=== PATIENT | male | born 1960 | race Caucasian/White ===

== ENCOUNTER → 2022-02-27 | Outpatient (CLI) | payer BC, SELFPAY ==
--- NOTE | 2022-02-27 08:02 | CT_ITS ---
STUDY: CT MAXILLOFACIAL SINUSES REASON FOR EXAM: Male, 61 years old. SINUSITIS RADIATION DOSAGE (If Supplied By Facility): CTDIvol = ( 33.06 ) mGy, DLP = ( 763.60 ) mGycm TECHNIQUE: The patient was scanned in a multi detector CT scanner. High resolution axial imaging was performed without the administration of intravenous contrast material. Sagittal and coronal images were reconstructed. Individualized dose optimization techniques were used for this CT. COMPARISON: None. FINDINGS: FRONTAL SINUSES: Normal aeration, without mucosal inflammatory disease. ETHMOIDAL SINUSES: Normal aeration, without mucosal inflammatory disease. MAXILLARY SINUSES: Normal aeration, without mucosal inflammatory disease. SPHENOIDAL SINUSES: Mild degree of mucosal thickening along the posterior aspect of the right sphenoid sinus. There is patency of the bilateral maxillary infundibuli with normal uncinate processes, ethmoid bullae, and hiatus semilunaris. Normal bilateral middle turbinates. Normal bilateral inferior turbinates. Normal midline nasal septum. There is patency of the bilateral nasal airways. The visualized osseous structures are normal. The visualized bilateral orbital contents are normal. CT/Sinus/Facial Bone IMPRESSION: Mild degree of thickening along the posterior aspect of the right sphenoid sinus. Electronically Signed: Sj Whitten MD at 8:33 EDT ,
== END | disposition home or self-care (01) ==
PROVIDERS: PCP Family Medicine; Referring Provider Otolaryngology; Visit Provider Otolaryngology
DX: J32.9 Chronic sinusitis, unspecified (principal)
CPT/HCPCS: 70486

== ENCOUNTER → 2025-02-06 | Outpatient (CLI) | payer MEDICARE, OTHER, SELFPAY ==
--- NOTE | 2025-02-06 15:02 | NEURO ---
NCS and/or EMG Patient Report Ordering Doctor: Isra Wren DATE OF SERVICE: 02/06/25 Clinical Summary: 64 year old male patient presenting with symptoms of pain, numbness, and tingling in the right upper extremity. Nerve Conduction Studies Summary: Nerve conduction studies performed in the right upper extremity were within normal ranges. Needle Examination Summary: Needle examination of select muscles of the right upper extremity demonstrated increased insertional activity and spontaneous activity (positive sharp waves) in the left flexor carpi radialis muscle. There was a higher proportion of motor unit action potentials with reduced recruitment, increased amplitude, increased duration, and polyphasia in the right triceps muscle. Impression: This is an abnormal study. There is electrodiagnostic evidence of a subacute to chronic, right C7 radiculopathy with active denervation. There is no electrodiagnostic evidence of a right median mononeuropathy at the wrist (carpal tunnel syndrome) or ulnar mononeuropathy. Multi Select Codes Neurology Neurology Interp Codes: 46855-23 Musc test done w/n test comp (interp) (1) and 47519-32 Nrv cndj test 7-8 studies (interp)
== END | disposition home or self-care (01) ==
PROVIDERS: PCP Family Medicine; Referring Provider Orthopaedic Surgery; Visit Provider Orthopaedic Surgery
DX: G56.01 Carpal tunnel syndrome, right upper limb (principal); M67.813 Other specified disorders of tendon, right shoulder
CPT/HCPCS: 95886; 95910

== ENCOUNTER 2025-04-04 10:13 | Day surgery (SDC) | payer MEDICARE, OTHER, SELFPAY ==
--- NOTE | 2025-03-21 15:45 | PAT.ANE_ITS ---
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 When Was Last Pacemaker Check QUESTION #4 FULL TEXT: You/Your Family Experience fever (hyperthermia) with Anesthesia Last Oral Intake Last Oral intake: Last Oral Intake NPO since Meds taken in AM with sips of water? Meds patient instructed to take am of surgery PONV PONV - assistant financial accountant: PONV - assistant financial accountant Female No 03/21/25 09:53 HX of Motion Sickness No 03/21/25 09:53 HX of N/V After Surgery No 03/21/25 09:53 Non-Smoker No 03/21/25 09:53 Duration of Surgery greater Yes 03/21/25 09:53 than 60 minutes Number of Risk Factors 1 03/21/25 09:53 PONV Score Low Risk 03/21/25 09:53 Height & Weight Height & Weight: Anesthesia: Height & Weight Height 5 ft 5 in 03/02/25 09:27 Respiratory Assessment Respiratory Assessment - assistant financial accountant: Respiratory Tract Infection Hx - assistant financial accountant Hx Respiratory Tract Infection No 03/21/25 09:53 STOP Sleep Apnea STOP Sleep Apnea - assistant financial accountant: STOP Sleep Apnea - assistant financial accountant Hx Hypertension No 03/21/25 09:53 Hx Sleep Apnea No 03/21/25 09:53 CPAP BIPAP Do you snore loudly (louder No 03/21/25 09:53 than talking or can be heard Do you often feel tired/ No 03/21/25 09:53 fatigued/ sleepy during daytime? Has anyone observed you stop No 03/21/25 09:53 breathing during sleep? STOP Results Negative 03/21/25 09:53 QUESTION #5 FULL TEXT : Do you snore loudly (louder than talking or can be heard through closed doors)? 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 Specify any problems Hx of Preganancy in last 3 N/A 03/21/25 09:53 Months Nurse Filling Out Transfusion [email or web address] 03/21/25 09:53 & Questions: Date: 03/21/25 03/21/25 09:53 Time: 09:56 03/21/25 09:53 Patient unable to answer at this time (ie. confused, unrespo /Reproduction History /Reproductive History - assistant financial accountant: /Reproductive Hx- assistant financial accountant Hx Now No 03/21/25 09:53 Gestational Age (in weeks): EDC: Hx Hx Para Hx Section SAB No 03/21/25 09:53 [facility] Medical History (Updated 03/21/25 @ 09:53 by Kathya Recinos) Wears glasses Wears dentures Marijuana use Abrasion High cholesterol Loss of consciousness Migraine headache Syncope Smoker Shortness of breath on exertion Home Medications ?Medication ?Instructions ?Recorded ?Last Taken ?Type gabapentin 300 mg capsule 300 mg PO TID 03/02/25 Unkno wn History rosuvastatin 10 mg tablet 10 mg PO QHS 03/02/25 Unknow n History Held on 03/21/25. Instructions: pt refused to take this at this time Allergy/AdvReac Type Severity Reaction Status Date / Time codeine AdvReac Intermediate Abd Verified 03/21/25 09:34 cramps/diarrhea morphine AdvReac Upset Verified 03/02/25 09:28 Stomach Family History Mother CAD (coronary artery disease) Brother CAD (coronary artery disease) Surgical History (Updated 03/21/25 @ 09:53 by Kathya Recinos) Hx of colonoscopy History of anal fissures Social History household members: spouse Smoking Status: Current every day smoker tobacco type: cigarettes alcohol intake: current alcohol intake frequency: holidays/special occasions only Audit: Pertinent Findings Pertinent Findings EKG Perinent findings: 05/2022: SR, possible left atrial enlargement, has 4% PVCs, was recommended to decrease caffeine Stress test pertinent findings: 07/2022: Negative stress test Echo (EF%) pertinent findings: 07/2022: LVEF 60-65%, normal study Additional pertinent findings: Unremarkable carotid ultrasound as per familia note Recommendation Anesthesia Recommendation Anesthesia recommendation: OPTIMIZED for anesthesia
--- NOTE | 2025-03-29 09:40 | EKG12_ITS ---
Test Reason : PRE OP Blood Pressure : */* mmHG Vent. Rate : 57 BPM Atrial Rate : 57 BPM P-R Int : 170 ms QRS Dur : 82 ms QT Int : 404 ms P-R-T Axes : 57 7 33 degrees QTcB Int : 393 ms Sinus bradycardia Otherwise normal ECG Confirmed by Michael Rangel ([id number]), sports editor MIGUEL REYES ([id number]) on 03/30/2025 6:41:57 AM Referred By: Dwayne Feliciano Confirmed By: Michael Rangel
[2025-03-29 10:43] LABS: Absolute Lymphocyte Count 2.06 X10^3/uL (0.83-4.51); Absolute Neutrophil Count 5.2 X10^3/uL (2.0-7.7); Basophil# 0.07 X10^3/uL; Basophil% 0.9 % (0-1); Eosinophil# 0.13 X10^3/uL; Eosinophils% 1.6 % (0-5); Hemoglobin 17.7 g/dL (13.0-16.5); Lymphocyte # 2.06 X10^3/ul (0.83-4.51); Lymphocyte % 25.4 % (19-41); Mean Corp Hgb Conc 34.7 g/dL (32-36); Mean Corpuscular Hgb 31.7 pg (27.0-32.0); Mean Corpuscular Volume 91.4 fL (80-94); Mean Platelet Vol. 9.4 fl (6.2-12.0); Monocyte# 0.63 X10^3/uL; Monocyte% 7.8 % (0-10); NRBC Flagged by Analyzer 0 % (0-5); Neutrophil # 5.17 X10^3/uL (2.7-7.7); Neutrophil % 63.7 % (47-70); Platelet Count 158 K/mm3 (150-450); RBC Distribution Width CV 13.2 % (11.6-14.6); RBC Distribution Width SD 44.6 fl (35.1-43.9); Red Blood Count 5.58 M/mm3 (4.6-6.2); White Blood Count 8.1 K/mm3 (4.4-11.0)
[2025-03-29 10:58] LABS: International Normalized Ratio 1.1
[2025-03-29 10:59] LABS: Partial Thromboplast Time 25.9 Seconds (24.1-36.2)
[2025-03-29 11:17] LABS: Hemoglobin A1c 5.9 % (<=5.6)
[2025-03-29 11:28] LABS: Magnesium 2.3 mg/dL (1.5-2.2)
[2025-03-29 11:35] LABS: Hepatitis B Surface Antibody Nonreactive
[2025-03-29 11:49] LABS: Anion Gap 15 (5-15); BUN 8 mg/dL (4-19); BUN/Creat Ratio 8.3 RATIO (10-20); Calcium,Total 9.1 mg/dL (7.6-11.0); Carbon Dioxide 22.2 mmol/L (21.0-32.0); Chloride 101 mmol/L (98-108); Creatinine, Serum 0.93 mg/dL (0.70-1.20); EST Glomerular Filtration Rate 91 (>60); Glucose 99 mg/dL (70-99); HIV Nonreactive (Nonreactive); Hepatitis C Antibody Nonreactive (Nonreactive); Potassium 3.9 mmol/L (3.3-5.1); Sodium Level 138 mmol/L (133-145)
[2025-03-30 05:07] LABS: Hepatitis A AB, Total Negative (Negative)
[2025-04-04] VITALS (10 sets, daily range): BP systolic 156–173; BP diastolic 78–99; PULSE 55–89; RESP 16–18; TEMP 36.2–36.8; O2SAT 96–100; BMI 26.6
[2025-04-04] MEDS: Lactated Ringers 1,000 ML 15 ML IV (10:45)
[2025-04-04] MEDS: Acetaminophen 500 MG Tablet 1000 MG PO (11:14)
[2025-04-04] MEDS: Magnesium 1 GM over 15 mins IV (11:28)
--- NOTE | 2025-04-04 11:36 | HP.PCM_ITS ---
History and Physical MR#: [id number] Acct: [id number] Name: IVETTE GONZÁLES Rep #: [id number] : 1960 Provider: Dr. Dwayne Feliciano MD Age/Sex: 64/M Location: [facility] [email or web address] Status: Signed Intake Vital Signs 03/02/2509:27 Height 5 ft 5 in Weight: 164 lb 4 oz BMI 27.3 Intake Visit Reasons: cervical spine Chief Complaint: pre op Accompanied by: Allergies codeine Adverse Reaction (Intermediate, Verified 03/29/25 08:04) Abd cramps/diarrheamorphine Adverse Reaction (Verified 03/29/25 08:04) Upset Stomach Medications ?Medication ?Instructions ?Recorded ?Confirmed ?Type gabapentin 300 mg capsule 300 mg PO TID 03/02/25 03/29/25 History rosuvastatin 10 mg tablet 10 mg PO QHS 03/02/25 03/29/25 History Held on 03/21/25. Instructions: pt refused to take this at this time Have you fallen in the past year?: No [facility] Medical History (Updated 03/29/25 @ 11:38 by Sunita Kelley) Wears glasses Wears dentures Marijuana use Abrasion High cholesterol Loss of consciousness Migraine headache Syncope Smoker Shortness of breath on exertion Surgical History Hx of colonoscopy History of anal fissures Family History Mother CAD (coronary artery disease)Brother CAD (coronary artery disease) Social History household members: spouse Smoking Status: Current every day smoker tobacco type: cigarettes alcohol intake: current alcohol intake frequency: holidays/special occasions only HPI cervical spine Details: This documentation accurately reflects the service provided and the decisions made by me, Dr. Dwayne Feliciano MD 03/29/25 2231. Part of today?s visit was documented by Teresa FINCH, acting as scribe. IVETTE GONZÁLES is a 64 year old M here today for pre-op cervical spine, dos: 04/04/25. He has had worsening radicular pain and patch of numbness in the left forearm, along with right-sided symptoms that persist. He also has worsening balance and continues to have lower back issues as well. 03/02/25: IVETTE GONZÁLES is a 64 year old M here today for cervical and lumbar spine pain. Patient states the neck and back have been bothering him for quite a while. He states he saw Dr. Isra Wren and he didn't know if it was all coming from the back and he was told he had bursitis in the hip. He decided to try physical therapy and over time it progressively gotten worse to the point where he couldn't walk very far without having to stop. He states he had an MRI of the lumbar spine and found some disc issues. He then had an MRI of the neck and he found some disc issues in the neck as well. Patient is currently in physical therapy right now. He does have some musculature soreness and will get more pain now while he is in PT. He states he does not have any pain in the neck unless he sleeps weird. He states his thumb, index and middle finger in the right hand gets numb and he gets radiating pain up the forearm into the elbow. Occasionally he will get the radiating pain all the way up the arm into the shoulder. He did have an EMG in January and was told the issues were coming from his neck, he does not have carpal tunnel. He states he is unable to sleep comfortably. The lumbar spine pain is over the left lumbar spine down the buttocks and into the posterior hamstring. He denies any pain into the right leg. He states when he walks the left leg feels like it locks up. He states he will get numbness in the anterior aspect of the left thigh. He denies any injections in the cervical or lumbar spine. He was prescribed gabapentin by Dr. Dhaliwal. He is seeing Dr. Whitaker next week for pain management. He does not have trouble writing, holding or dropping objects. He denies any issues with his balance when he walks and no recent falls. He does not have a history of heart problems, lung problems, diabetes or stroke. He does not take any blood thinners. 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 He is a smoker and smokes one pack per day. He is scheduled to be evaluated by Dr. Whitaker in pain management next week. Ortho Exam General General: Yes no acute distress Neurologic: Yes alert Psychologic: Yes reasonable and appropriate Spine SPINE TESTING CERVICAL THORACIC LUMBAR Musculoskeletal Strength 0=absent - 5=normal Details: Exertion neck shows midline right paraspinal tenderness, lower back shows midline left paraspinal tenderness neurologic motion of upper and lower extremities is 5 x 5 power normal shows normal sensations in all dermatomes with Jamar's negative. Romberg's is positive. Tandem gait shows mild imbalance. Reflexes are brisk. There is no clonus. Coding Level of Care Code Off vis,est,level 4 Diagnoses Cervical myelopathy with cervical radiculopathy G95.9; M54.12 Spinal stenosis of lumbar region with neurogenic claudication M48.062 Spondylolisthesis, lumbar region M43.16 Time Spent (min) 35 Assessment and Plan Assessment and Plan (1) Cervical myelopathy with cervical radiculopathy: Status: Acute (2) Spinal stenosis of lumbar region with neurogenic claudication: Status: Acute (3) Spondylolisthesis, lumbar region: Status: Acute Plan Again reviewed pt's cervical and lumbar x-ray in detail with patient and his . X-rays and MRI of the cervical spine show multilevel disc degeneration with C5-6 central disc herniation with cord compression with bilateral foraminal stenosis. C4-5 shows mild disc bulge without any cord compression. No cord signal changes seen. Lower back shows L4-5 subtle spondylolisthesis on flexion view which reduces in extension. MRI shows multilevel disc degeneration with severe central stenosis L4-5 and left-sided lateral recess stenosis from L4-S1. Again explained imaging findings in detail. Explained that cervical spinal cord compression with take priority of the lower back pathology. The cervical MRI shows compression, I discussed this in detail with patient and his . This would require decompression surgically, as cervical myelopathy typically has a progressive natural history. Disc replacement versus fusion were discussed in detail. Patient has a smoking history and is a single level pathology without significant facet arthrosis. I recommend C5-6 disc replacement. We discussed risks, benefits, and alternatives to this. At this time I recommend that we proceed with surgery for the cervical spine. We discussed the restrictions that he would have after surgery. We also discussed that he will likely have trouble swallowing for the first few weeks after surgery. For his lower back, recommend continued nonoperative measures versus surgery. I recommend that he receive injections with pain management for his lumbar spine. He is a smoker and we discussed smoking cessation and how smoking can affect healing after surgery. Discussed in detail the risk benefits and alternatives of the cervical spine surgery. The risks include but are not limited to infection, bleeding, injury to nerves and vessels, hematoma formation, need for further surgery, dysphagia, dysphonia, visceral injury, Ayesha syndrome, recurrent laryngeal nerve injury, persistent pain, persistent numbness and weakness, spinal cord injury, nerve root injury, persistent malposition, adjacent segment degeneration, DVT, pulm embolism, pneumonia, atelectasis, cardiopulmonary event. Patient understands and agrees to proceed with surgery. Consent was signed.
[2025-04-04 11:42] LABS: Bedside Glucose 103 mg/dL (74-106)
--- NOTE | 2025-04-04 12:15 | PCM.PRE.AN2 ---
ASA Classification* ASA Classification ASA Classification: 3 Assessment & Plan Anesthesia* Anesthesia Assessment Anesthesia Assessment: Discussed sedation and/or anesthesia options, risks, benefits, and alternatives with patient/parents/legal guardian/POA. Questions invited. The patient/parents/legal guardian/POA seems to understand and agrees to proceed with anesthesia plan. Reviewed the physical assessment, medical history, allergy history and patient home medications list prior to surgery/procedure/anesthetic and documented any changes. Performed airway and anesthesia risk assessments. Anesthesia Type Anesthesia Type: General History Source History Obtained from:: Patient and Chart Anesthesia Focused Assessment* Temperature: 98.2 F Pulse Rate: 55 Blood Pressure: 164/78 Respiratory Rate: 16 Pulse Ox: 100 Oxygen Delivery Method: Room Air Airway Assessment Mouth opens: >3 cm Mallampati Score: III Teeth Condition: Dentures (Patient has full upper and lower dentures. They are out.) Neck Range of motion (ROM): Limited ROM (Slight decrease secondary to disc compression.) Labs Anesthesia Preop lab: CBC WBC 8.1 K/mm3 (4.4-11.0) 03/29/25 09:55 03/29/25 RBC 5.58 M/mm3 (4.6-6.2) 03/29/25 09:55 03/29/25 Hgb 17.7 g/dL (13.0-16.5) H 03/29/25 09:55 03/29/25 Hct 51.0 % (40-54) 03/29/25 09:55 03/29/25 Plt Count 158 K/mm3 (150-450) 03/29/25 09:55 03/29/25 CHEMISTRY Potassium 3.9 mmol/L (3.3-5.1) 03/29/25 09:55 03/29/25 Sodium 138 mmol/L (133-145) 03/29/25 09:55 03/29/25 Magnesium 2.3 mg/dL (1.5-2.2) H 03/29/25 09:55 03/29/25 BUN 8 mg/dL (4-19) 03/29/25 09:55 03/29/25 Creatinine 0.93 mg/dL (0.70-1.20) 03/29/25 09:55 03/29/25 Glucose 99 mg/dL (70-99) 03/29/25 09:55 03/29/25 POC Glucose 103 mg/dL (74-106) 04/04/25 10:59 04/04/25 COAG PT 14.0 SECONDS (11.7-14.9) 03/29/25 09:55 03/29/25 Pre-Assessment Diagnosis/Proposed Procedure Planned Operative Procedure(s): Cervical Disc Arthroplasty C5-6, ERAS Anesthesia History 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 When Was Last Pacemaker Check QUESTION #4 FULL TEXT: You/Your Family Experience fever (hyperthermia) with Anesthesia Last Oral Intake Last Oral intake: Last Oral Intake NPO since 10:00 04/04/25 11:08 Meds taken in AM with sips of No 04/04/25 11:08 water? Meds patient instructed to take am of surgery Any additional information?: Yes NPO since: 08:15 (Patient took his preop Ensure at 8:15 AM. 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 Female No 03/21/25 09:53 HX of Motion Sickness No 03/21/25 09:53 HX of N/V After Surgery No 03/21/25 09:53 Non-Smoker No 03/21/25 09:53 Duration of Surgery greater Yes 03/21/25 09:53 than 60 minutes Number of Risk Factors 1 03/21/25 09:53 PONV Score Low Risk 03/21/25 09:53 Height & Weight Height & Weight: Anesthesia: Height & Weight Height 5 ft 5 in 04/04/25 11:08 Weight: 72.575 kg 04/04/25 11:08 Body Mass Index (BMI) 26.6 04/04/25 11:08 Respiratory Assessment Respiratory Assessment - shells inspector: Respiratory Tract Infection Hx - shells inspector Hx Respiratory Tract Infection No 03/21/25 09:53 STOP Sleep Apnea STOP Sleep Apnea - shells inspector: STOP Sleep Apnea - shells inspector Hx Hypertension No 03/21/25 09:53 Hx Sleep Apnea No 03/21/25 09:53 CPAP BIPAP Do you snore loudly (louder No 03/21/25 09:53 than talking or can be heard Do you often feel tired/ No 03/21/25 09:53 fatigued/ sleepy during daytime? Has anyone observed you stop No 03/21/25 09:53 breathing during sleep? STOP Results Negative 03/21/25 09:53 QUESTION #5 FULL TEXT : Do you snore loudly (louder than talking or can be heard through closed doors)? 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 Specify any problems Hx of Preganancy in last 3 N/A 03/21/25 09:53 Months Nurse Filling Out Transfusion [email or web address] 03/21/25 09:53 & Questions: Date: 03/21/25 03/21/25 09:53 Time: 09:56 03/21/25 09:53 Patient unable to answer at this time (ie. confused, unrespo /Reproduction History /Reproductive History - shells inspector: /Reproductive Hx- shells inspector Hx Now No 03/21/25 09:53 Gestational Age (in weeks): EDC: Hx Hx Para Hx Section SAB No 03/21/25 09:53 Active Medications Active Medications: Current Medications Generic Name Dose Route Start Last Admin Trade Name Freq PRN Reason Stop Dose Admin Acetaminophen 1,000 mg 04/04/25 12:15 04/04/25 11:14 Acetaminophen 500 Mg Tablet PO 04/04/25 12:16 1,000 mg PREOP ONE Administration Dexamethasone Sodium Phosphate 8 mg 04/04/25 12:15 Dexamethasone 10 Mg/Ml Vial IV 04/04/25 12:16 INTRAOP ONE Dexamethasone Sodium Phosphate 4 mg 04/04/25 12:15 Dexamethasone 4 Mg/Ml Vial IV 04/04/25 12:16 POSTOP ONE Cefazolin Sodium 2 gm/ Sodium 110 mls @ 150 mls/hr 04/04/25 12:15 Chloride IV 04/04/25 12:58 INTRAOP ONE Tranexamic Acid 1,000 mg/ 110 mls @ 440 mls/hr 04/04/25 12:15 Sodium Chloride IV 04/04/25 12:29 INTRAOP ONE Tranexamic Acid 1,000 mg/ 110 mls @ 440 mls/hr 04/04/25 12:15 Sodium Chloride IV 04/04/25 12:29 INTRAOP ONE Magnesium Sulfate 1 gm/ 102 mls @ 408 mls/hr 04/04/25 12:15 04/04/25 11:28 Dextrose IV 04/04/25 12:29 408 mls/hr INTRAOP ONE Administration Lactated Ringer's 1,000 mls @ 15 mls/hr 04/04/25 10:45 04/04/25 10:45 IV 15 mls/hr .Q48H TERRY Administration Insulin Human Lispro 1 - 6 unit 04/04/25 12:15 Insulin Lispro 100 Unit/Ml Insuln.Pen SC 04/04/25 18:00 Q4H PRN PRN BG>/= 180, SEE PROTOCOL Protocol PFSH Medical History Wears glasses Wears dentures Marijuana use Abrasion High cholesterol Loss of consciousness Migraine headache Syncope Smoker Shortness of breath on exertion Home Medications ?Medication ?Instructions ?Recorded ?Last Taken ?Type gabapentin 300 mg capsule 300 mg PO TID 03/02/25 04/04/25 07:00 History rosuvastatin 10 mg tablet 10 mg PO QHS 03/02/25 Unknown History Held on 03/21/25. Instructions: pt refused to take this at this time Allergy/AdvReac Type Severity Reaction Status Date / Time codeine AdvReac Intermediate Abd Verified 04/04/25 11:01 cramps/diarrhea morphine AdvReac Upset Verified 04/04/25 11:01 Stomach Family History Mother CAD (coronary artery disease) Brother CAD (coronary artery disease) Surgical History Hx of colonoscopy History of anal fissures Social History household members: spouse Smoking Status: Current every day smoker tobacco type: cigarettes alcohol intake: current alcohol intake frequency: holidays/special occasions only Review of Systems (Anesthesia) ROS Narrative System reviewed and no additional complaints, except as documented.
[2025-04-04] MEDS: Cefazolin 2 GM in 0.9% Normal Saline (100mL Bag) 100 ML IV (12:34)
[2025-04-04] MEDS: TRANEXAMIC ACID 1,000 MG in 0.9% Normal Saline (100mL Bag) 100 ML 440 MG IV ×2 (12:46→13:58)
[2025-04-04] MEDS: dexAMETHasone 10 MG/ML Vial 8 MG IV (13:04)
--- NOTE | 2025-04-04 13:15 | RAD_ITS ---
PROCEDURE: Intraoperative fluoroscopic services provided. 04/04/2025 REASON FOR EXAM: CERVICAL DISC ARTHROPLASTY C5-6 TECHNIQUE: Intraoperative fluoroscopic services provided for C5-C6 arthroplasty. COMPARISON: None FINDINGS: 14.9 seconds of fluoroscopy. 2.26 mGy.. 3 images were submitted. RAD/Cerv Spine 2 or 3 Views IMPRESSION: Intraoperative fluoroscopic services provided as described. Reading Location: [facility]
[2025-04-04] MEDS: HYDROcodone Bitartrate/Apap 5/325 Tablet PO (13:45)
--- NOTE | 2025-04-04 14:31 | PCM.OPRPT ---
Procedures Musculoskeletal [id number]: Other Procedure See Report Operative Report (Standard) Operative Information Date of Procedure: 04/04/25 Pre-Operative Diagnosis: C5-6 disc herniation, cord compression, myelopathy with radiculopathy Post-Operative Diagnosis: Same Surgery/Procedure Performed: C5-6 disc replacement airport duty manager: Yes Lab Tester: Shannon Hernandez Tasks completed by hospital nursing assistant: Closing, Removing tissue, Hemostasis: Electrocautery and Retracting Type of Anesthesia: General RN Documented Start/Stop Times: Operation Date: 04/04/25 12:15 Case Time Into Pre-Op 04/04/25 10:41 Out of Pre-Op 04/04/25 12:21 Anesthesia Start 04/04/25 12:30 Into Room 04/04/25 12:30 Procedure Start 04/04/25 13:02 Procedure End 04/04/25 14:17 Anesthesia End 04/04/25 14:24 Out of Room 04/04/25 14:24 Into Recovery 04/04/25 14:30 Procedure Start Time: 13:02 Procedure Stop Time: 14:17 Select all DRAINS/GRAFTS/IMPLANTS that apply: Prosthetic device Prosthetic device details: ZimVie Mobi-C cervical disc replacement prosthesis Estimated Blood Loss: 20 cc Specimen collected: No Description of surgery: Preoperative diagnosis: 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 Anesthesia: Gen. endotracheal Estimated blood loss: 20 mL Complications: None Instrumentation used: Jaimee [employer]omet Mobi-C cervical disc replacement implants Indications: The patient is a pleasant 64-year-old gentleman who presented with symptoms of neck pain, progressive right upper extremity radiation, worsening difficulty with dexterity and balance. MRI revealed C5-6 central disc herniation with cord compression without cord signal changes. In order to halt the progression of myelopathy, patient requested surgical intervention. All risks and benefits of the procedure were explained to the patient. The risks include but are not limited to infection, bleeding, injury to nerves and vessels, vertebral artery injury, spinal cord injury, paralysis, vocal cord paralysis, injury to esophagus, need for further procedures, adjacent segment degeneration, heterotopic ossification, implant loosening, implant failure, DVT, pulmonary embolism, cardiopulmonary event, etc. Procedure: The patient was identified in the preoperative suite using unique patient identifiers. Skin was marked consent was taken and all questions were answered. The patient was then brought back to the operative room and a timeout was performed. General endotracheal anesthesia was given. Intraoperative neuro monitoring leads were applied. The patient was carefully positioned supine on a regular OR table. A lateral x-ray with a C-arm was done to identify the level and to define the incision. The anterior neck was then prepped and draped in the usual fashion. A final timeout was then performed. A transverse skin incision was then taken to the left of midline 2 fingerbreadths above the clavicle. Subcutaneous tissue was then divided with Bovie. Platysma was identified and cut transversely with scissors. The fascial interval between the sternocleidomastoid and the larynx was developed. Omohyoid was identified and mobilized medially and inferiorly. Carotid sheath was laterally while the esophagus with the larynx was retracted medially to reach the prevertebral fascia. All prevertebral layers of fascia were bluntly dissected and a Wesson pin was placed into one of the bodies. A lateral C-arm image was used to confirm the correct level. Once this was done longus coli muscle was elevated on both sides at and above and below C5-6 disc. Shadow line retractors were then placed with great care to protect the esophagus. A long handle knife was then used to perform annulotomy at C5-6. Disc fragments were removed with the pituitary. Wesson pins were placed in C5 and C6 for disc distraction. AP view confirmed midline placement of Wesson pins. Curettes were utilized to remove cartilage from the endplates. Discectomy was performed laterally up to the uncovertebral joints. Adequate decompression was performed, PLL was thinned out and partially resected. Foramina were decompressed without taking down the uncovertebral processes. Once the disc space was prepared, trials of various sizes were utilized. Thorough irrigation was given. Mobi-C anterior cervical disc replacement implant of size 17 x 17 mm with 5 mm height was then placed under fluoroscopic guidance. Adequate positioning was noticed on AP and lateral views. Thorough irrigation was again given. Hemostasis was achieved with FloSeal and bipolar cautery. Closure was done with 3-0 Vicryl for the platysma and subcutaneous tissue layers and 4-0 Monocryl for the skin. Steri-Strips were applied and dressing was done with 4 x 4 gauze and Tegaderm. A cervical collar was then applied. The patient was then woken up from anesthesia extubated and taken to PACU in stable condition. Intraoperative neuro monitoring was performed throughout this procedure. Motor evoked potentials were run periodically. All potentials remained at baseline throughout the procedure. I was present for the entire surgery and performed the surgery myself. Machine Leather Trimmer Shannon Hernandez PA-C. My physician pet care assistant was a vital part of this case. They were important in appropriate retraction during the case, and protection of soft tissues during the procedure. Their intimate knowledge of the case and my steps aided in safe and expedient completion of the procedure as well as appropriate position of the patient during the surgery. They were also vital in assisting with closure under my direct supervision. Surgical Findings: See operative note Complications Complications: No
--- NOTE | 2025-04-04 14:41 | PCM.POST.ANE ---
Anesthesia: Postop Eval I Current Vital Signs Temperature: 97.2 F Pulse Rate: 85 Blood Pressure: 172/86 Respiratory Rate: 18 Pulse Ox: 97 Oxygen Delivery Method: Nasal Cannula Oxygen Flow Rate (L/min): 4 Assessment Airway patent: Yes Spontaneous unlabored respirations: Yes Mental status: Awake and Calm nausea: No Vomiting: No Anesthesia Complication: No Fluid Hydration Crystalloid volume administer (ml): 1,000 Total IV fluid infused: 1,000 Progress Note Post-operative progress note: See PACU notes for details VSS Anesthesia document: Postop Eval 1 completed: Yes
--- NOTE | 2025-04-04 16:34 | POSTOPAN2_ITS ---
Anesthesia Postop Eval I Sum Postop Eval Completion status Anesthesia document: Postop Eval 1 completed: Yes Anesthesia Postop Eval I Summary Anesthesia Postop Eval I Summary: Anesthesia Postop Eval I: Assessment Summary Airway patent Yes 04/04/25 14:42 RESEARCH KENNEL SUPERVISOR.DBAK Spontaneous unlabored Yes 04/04/25 14:42 RESEARCH KENNEL SUPERVISOR.DBAK respirations Mental status Awake,Calm 04/04/25 14:42 RESEARCH KENNEL SUPERVISOR.DBAK nausea No 04/04/25 14:42 RESEARCH KENNEL SUPERVISOR.DBAK Vomiting No 04/04/25 14:42 RESEARCH KENNEL SUPERVISOR.DBAK Anesthesia Postop Eval I: Fluid Summary Crystalloid volume administer 1,000 04/04/25 14:42 RESEARCH KENNEL SUPERVISOR.DBAK (ml) Colloids volume administered ( ml) Blood Product volume administered (ml) Total IV fluid infused 1,000 04/04/25 14:42 RESEARCH KENNEL SUPERVISOR.DBAK Anesthesia Postop Eval I: Summary Notes Anesthesia Complication No 04/04/25 14:42 RESEARCH KENNEL SUPERVISOR.DBAK Anesthesia Complication Comment: Post-operative progress note See PACU notes for 04/04/25 14:42 RESEARCH KENNEL SUPERVISOR.DBAK details VSS Anesthesia: Postop Eval II Evaluation Mental status: Awake Pain Level: 3 nausea: No Vomiting: No
--- NOTE | 2025-04-04 16:34 | PCM.POSTANE2 ---
Anesthesia Postop Eval I Sum Postop Eval Completion status Anesthesia document: Postop Eval 1 completed: Yes Anesthesia Postop Eval I Summary Anesthesia Postop Eval I Summary: Anesthesia Postop Eval I: Assessment Summary Airway patent Yes 04/04/25 14:42 CALCULATION CLERK.DBAK Spontaneous unlabored Yes 04/04/25 14:42 CALCULATION CLERK.DBAK respirations Mental status Awake,Calm 04/04/25 14:42 CALCULATION CLERK.DBAK nausea No 04/04/25 14:42 CALCULATION CLERK.DBAK Vomiting No 04/04/25 14:42 CALCULATION CLERK.DBAK Anesthesia Postop Eval I: Fluid Summary Crystalloid volume administer 1,000 04/04/25 14:42 CALCULATION CLERK.DBAK (ml) Colloids volume administered ( ml) Blood Product volume administered (ml) Total IV fluid infused 1,000 04/04/25 14:42 CALCULATION CLERK.DBAK Anesthesia Postop Eval I: Summary Notes Anesthesia Complication No 04/04/25 14:42 CALCULATION CLERK.DBAK Anesthesia Complication Comment: Post-operative progress note See PACU notes for 04/04/25 14:42 CALCULATION CLERK.DBAK details VSS Anesthesia: Postop Eval II Evaluation Mental status: Awake Pain Level: 3 nausea: No Vomiting: No
--- OUTSIDE RECORDS SUMMARY | 2025-04-04 20:36 | XMS RPT_ITS | CCD ---
Author Organization [facility] Care Team Providers Care Gang Saw Operator Name Role Phone Gareth Amador Unavailable Unavailable PROVIDER, UNKNOWN Unavailable Unavailable Matheus Carmona Unavailable Unavailab le Keiko Amadorick Unavailable Unavailable PROVIDER, UNKNOWN Unavailable Unavailable Matheus Carmona Unavailable Unavailab le Marjorie, Gareth Unavailable Unavailable Matheus Carmona Unavailable Unavailab le PROVIDER, UNKNOWN Unavailable Unavailable Keiko Amadorick Unavailable Unavailable Matheus Carmona Unavailable Unavailab le PROVIDER, UNKNOWN Unavailable Unavailable FRIDA DO, DR MACHADO A Primary Care Physician FRIDA DO, DR MACHADO A Primary Care Physician FRIDA DO, DR MACHADO A Primary Care Physician [facility] [employer] 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FFIE Attending Unava ilable FRIDA DO, DR MACHADO A Primary Care Unavailabl e [facility] EFFIE Attending Unava ilable FRIDA DO, DR MACHADO A Primary Care UnavailDARION Saldivar MD Attending Unavailable FRIDA DO, DR MACHADO A Primary Care Unavailabl e [facility] EFFIE Attending Unava ilable FRIDA DO, DR MACHADO A Primary Care Unavailabl e FRIDA DO, DR JEANNETTE Salgado Attending Unavailabl e FRIDA DO, DR MACHADO A Primary Care [facility]availabl e 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 Attending Unava ilable FRIDA DO, DR JEANNETTE Salgado Primary Care Unavailabl e [facility] Attending Unava ilable FRIDA DO, DR MACHADO A Primary Care UnavailDARION Saldivar MD Attending Unavailable FRIDA DO, DR JEANNETTE Salgado Primary Care Unavailabl e FRIDA DO, DR JEANNETTE Salgado Primary Care Unavailabl e [facility], EFFIE Attending Unava ilable FRIDA DO, DR JEANNETTE Salgado Primary Care Unavailabl e DARION LEONE MD Attending Unavailable FRIDA DO, DR JEANNETTE Salgado Primary Care UnavailISRA Engladn MD Attending Unavailable FRIDA DO, DR JEANNETTE Salgado Primary Care Unavailabl e [facility], EFFIE Attending Unava ilable Frida DO, Dr. Machado Primary Care Provider Holger BROCK, Dr. Dhaliwal Attending Provider Holger BROCK, Dr. Dhaliwal Referring Provider Holger BROCK, Dr. Dhaliwal Other Provider [phone] Berny BROCK, Dr. Avelar Attending Provider Frida DO, Dr. Machado Referring Provider Braden BROKC, Dr. Rice Attending Provider Uche BROCK, Dr. Phillips Attending Provider FRIDA DO, DR JEANNETTE Salgado Primary Care Unavailabl e FRIDA DO, DR JEANNETTE Salgado Attending Unavailabl e FRIDA DO, DR JEANNETTE Salgado Primary Care Unavailabl e ISRA CARRERO MD Attending Unavailable FRIDA DO, DR JEANNETTE Salgado Primary Care Unavailabl e RACHEL KANG Attending Unavailable FRIDA DO, DR JEANNETTE Salgado Attending Unavailabl e FRIDA DO, DR JEANNETTE Salgado Primary Care Unavailabl e Alan Ivey Attending Unavailable Frida, Jeannette Primary Care Unavailable Dwayne Feliciano Attending Unavailable Frida, Jeannette Referring Unavailable Frida, Jeannette Primary Care Unavailable Michael Rangel Attending Unavailable Dwayne Feliciano Referring Unavailable Frida, Jeannette Primary Care Unavailable Isra Carrero Referring Unavailable Valentino Arrieta Attending Unavailable Frida, Jeannette Primary Care Unavailable Isra Carrero Consulting Unavailable Dwayne Feliciano Attending Unavailable Dwayne Feliciano Referring Unavailable Frida, Jeannette Primary Care Unavailable Isra Carrero Referring Unavailable Frida, Jeannette Primary Care Unavailable Isra Carrero Attending Unavailable Dwayne Feliciano Attending Unavailable Frida, Jeannette Primary Care Unavailable Frida, Jeannette Referring Unavailable Dr. Michael Rangel MD Attending Provider Braden BROCK, Dr. Rice Referring Provider Braden BROCK, Dr. Rice Other Provider Allergies Allergy Classification Reported Allergen(s) Allergy Type Date of Onset Reaction(s) Facility (16 sources) Codeine; Translations: [codeine] Drug Allergy 5 Abd cramps/diarrhea [facility] Comment on above: abdul my stomach up (18 sources) Morphine; Translations: [morphine] Drug Allergy 5 Vomiting (disorder) [facility] Comment on above: Upset stomach and se cheng dizziness (1 source) Codeine Drug Allergy 5 [facility] Repository (1 source) Morphine Drug Allergy 5 [facility] Rep[facility] Medications Current Medications Medication Drug Class(es) Dates Sig (Normalized) Sig (Original) acetaminophen 325 mg / HYDROcodone bitartrate 5 mg oral tablet (1 source) Opioid Agonist Start: 04-04-2025 take 1 tablet by mouth every six hours as needed for pain Hydrocodone-Acetam inophen 5-325 mg tablet Active 1 {tbl} PO EVERY 6 HOURS as needed for pain 06 03April 04, 2025 cephalexin 500 mg oral capsule (1 source) Cephalosporin Antibacterial Start: 04-04-2025 take 1 tablet by mouth twice daily Cephalexin 500 mg capsule Active 500 mg PO TWICE A DAY April 04, 2025 12:00am take 1 tablet twice a day for 3 days dexamethasone 4 mg oral tablet (1 source) Corticosteroid Start: 04-04-2025 Dexamethasone 4 mg tablet Active 4 mg PO TWICE A DAY 5 April 04, 2025 12:00am take 2 tablets on day 1, 2 tablets on day 2, and 1 tablet on day 3 doxycycline hyclate 100 mg oral capsule (2 sources) Tetracycline-class Drug Start: 07-19-2023 End: 07-26-2023 doxycycline hyclate 100 mg oral capsule Dose : 100 mg = 1 cap(s), Oral, BID, X 7 day(s), # 14 cap(s), 0 Refill(s), 07/26/23 9:59:00 AM EDT, Pharmacy: [facility]/pharmacy #[id number], 165, cm, 07/19/23 9:28:00 EDT, Height, 74.2, kg, 07/19/23 9:28:00 EDT, Dosing Weight Start Date: 07/19/23 Stop Date: 07/26/23 Status: Ordered gabapentin 300 mg oral capsule (4 sources) Anti-epileptic Agent Start: 03-02-2025 take 1 capsule by mouth three times daily Gabapentin 300 mg capsule Active 300 mg PO THREE TIMES A DAY March 02, 2025 12:00am meloxicam 15 mg oral tablet (1 source) Nonsteroidal Anti-inflammatory Drug Start: 04-04-2025 take 1 tablet by mouth once daily Meloxicam 15 mg tablet Active 15 mg PO DAILY April 04, 2025 12:00am take once a day methocarbamol 500 mg oral tablet (1 source) Muscle Relaxant Start: 04-04-2025 take 500-750 mg by mouth three times daily as needed for pain Methocarbamol 500 mg tablet Active 500 - 750 mg PO THREE TIMES A DAY as needed for pain/spasms April 04, 2025 2:31pm rosuvastatin calcium 10 mg oral tablet (3 sources) HMG-CoA Reductase Inhibitor Start: 03-02-2025 take 1 tablet by mouth at bedtime Rosuvastatin 10 mg tablet Active 10 mg PO AT BEDTIME March 02, 2025 12:00am sennosides, fci 8.6 mg oral capsule (1 source) Start: 04-04-2025 take 1 capsule by mouth twice daily as needed for constipation Sennosides (Senna) 8.6 mg capsule Active 8.6 mg PO TWICE A DAY as needed for constipation April 04, 2025 12:00am tamsulosin hydrochloride 0.4 mg oral capsule (5 sources) alpha-Adrenergic Ale Start: 07-19-2023 End: 04-26-2025 Flomax 0.4 mg oral capsule Dose : 0.8 mg = 2 cap(s), Oral, qDay, # 180 cap(s), 3 Refill(s), Pharmacy: [facility]/pharmacy #[id number], 167.6, cm, 03/20/24 8:02:00 EDT, Height, kg, 03/20/24 8:02:00 EDT, Dosing Weight Start Date: 05/01/24 Stop Date: 04/26/25 Status: Ordered trospium chloride 20 mg oral tablet (1 source) Cholinergic Muscarinic Antagonist Start: 01-21-2024 End: 03-21-2024 trospium 20 mg oral tablet Dose : 20 mg = 1 tab(s), Oral, BID, # 60 tab(s), 1 Refill(s) Start Date: 01/21/24 Stop Date: 03/21/24 Status: Ordered Completed/Discontinued Medications Medication Drug Class(es) Dates Sig (Normalized) Sig (Original) sildenafil 100 mg oral tablet (16 sources) Phosphodiesterase 5 Inhibitor Start: 01-21-2024 End: 05-20-2024 sildenafil 100 mg oral tablet Dose : 100 mg = 1 tab(s), Oral, qDay, # 30 tab(s), 3 Refill(s) Start Date: 01/21/24 Stop Date: 05/20/24 Status: Ordered Quantity: 30.0 Unit: tab(s) Repeat number: 4 Start: 11-11-2023 sildenafil 20 mg oral tablet See Instructions, 2-5 tablets 30-60 minutes prior to sexual activity, # 30 tab(s), 11 Refill(s), Pharmacy: [facility]/pharmacy #[id number], 164, cm, 11/11/23 8:31:00 EST, Height, kg, 11/11/23 8:31:00 EST, Dosing Weight Start Date: 11/11/23 Status: Ordered Start: 04-23-2023 sildenafil 20 mg oral tablet See Instructions, 2-5 tablets 30-60 minutes prior to sexual activity, # 20 tab(s), 5 Refill(s), [facility]acy: [id number], 165.1, cm, 03/29/23 10:50:00 EDT, Height, kg, 03/29/23 10:50:00 EDT, Dosing Weight Start Date: 04/23/23 Status: Ordered Start: 10-30-2022 sildenafil 20 mg oral tablet See Instructions, 2-5 tablets 30-60 minutes prior to sexual activity, # 20 tab(s), 5 Refill(s), Pharmacy: [email or web address] #[id number], 165.1, cm, 09/25/22 8:48:00 EST, Height, kg, 09/25/22 8:48:00 EST, Dosing Weight Start Date: 10/30/22 Status: Ordered Start: 05-06-2022 sildenafil 20 mg oral tablet See Instructions, 2-5 tablets 30-60 minutes prior to sexual activity, # 20 tab(s), 5 Refill(s), [facility]: [id number], 164, cm, 05/06/22 9:55:00 EDT, Height, kg, 05/06/22 9:55:00 EDT, Dosing Weight Start Date: 05/06/22 Status: Ordered Problems Active Problems Problem Classification Problem Date Documented Da te Episodic/Chronic Allergic reactions (2 sources) Allergy status to narcotic agent status; Translations: [Allergy status to narcotic agent status] Onset: 01-20-2018 Episodic Anal and rectal conditions (2 sources) Anal fistula; Translations: [Anal fistula] Onset: 01-20-2018 Episodic Cardiac dysrhythmias (9 sources) Ventricular premature complex 09-25-2022 Chronic Conditions associated with dizziness or vertigo (11 sources) Dizziness 07-01-2022 Episodic Deficiency and other anemia (1 source) Hemoglobinopathy; 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 Genitourinary symptoms and ill-defined conditions (14 sources) Blood in urine; Translations: [Hematuria, unspecified] Onset: 07-19-2023 Episodic Hyperplasia of prostate (11 sources) Benign prostatic hypertrophy with outflow obstruction; Translations: [Benign prostatic hyperplasia with lower urinary tract symptoms] Onset: 07-19-2023 03-29-2023 Chronic Medical examination/evaluation (2 sources) Encounter for other preprocedural examination; Translations: [Encounter for other preprocedural examination] Onset: 01-13-2018 Episodic Other acquired deformities (5 sources) Lumbar spondylolisthesis; Translations: [Spondylolisthesis, lumbar region] 03-02-2025 Episodic Other and unspecified benign neoplasm (2 sources) Personal history of colonic polyps; Translations: [Personal history of colonic polyps] Onset: 01-20-2018 Episodic Other diseases of bladder and urethra (3 sources) Urethral stricture 05-16-2024 Episodic Other gastrointestinal disorders (2 sources) Other specified functional intestinal disorders; Translations: [Other specified functional intestinal disorders] Onset: 01-20-2018 Episodic Other hematologic conditions (11 sources) Increased hemoglobin 07-01-2022 Episodic Other male genital disorders (7 sources) Impotence 07-19-2023 Chronic Other male genital disorders (4 sources) Male erectile dysfunction, unspecified; Translations: [Male erectile dysfunction, unspecified] Onset: 07-19-2023 Chronic Other nervous system disorders (5 sources) Cervical myelopathy; Translations: [Disease of spinal cord, unspecified] 03-02-2025 Chronic Other nervous system disorders (2 sources) Carpal tunnel syndrome, right upper limb; Translations: [Carpal tunnel syndrome, right upper limb] Onset: 03-13-2025 Chronic Other skin disorders (2 sources) Other specified disorders of the skin and subcutaneous tissue; Translations: [Oth disrd of the skin and subcutaneous tissue] Onset: 01-13-2018 Episodic Residual codes; unclassified (11 sources) FH: premature coronary heart disease 07-01-2022 Episodic Residual codes; unclassified (1 source) History of surgical procedure on cervical spine; Translations: [Other specified postprocedural states] 04-04-2025 Episodic Screening or history of mental health and substance abuse (2 sources) Personal history of nicotine dependence; Translations: [Personal history of nicotine dependence] Onset: 01-20-2018 Episodic Spondylosis; intervertebral disc disorders; other back problems (7 sources) Spinal stenosis of lumbar region; Translations: [Spinal stenosis, lumbar region with neurogenic claudication] Onset: 03-02-2025 03-02-2025 Episodic Syncope (11 sources) Near syncope 07-01-2022 Episodic Unclassified (2 sources) Chills (without fever); Translations: [Chills (without fever)] Onset: 01-20-2018 Episodic Unclassified (1 source) Low back pain, unspecified; Translations: [Low back pain, unspecified] Onset: 03-02-2025 Past or Other Problems Problem Classification Problem Date Documented Da te Episodic/Chronic Other diseases of bladder and urethra (2 sources) Unspecified urethral stricture, male, unspecified site; Translations: [Unspecified urethral stricture, male, unspecified site] Onset: 08-25-2024 Episodic Urinary tract infections (2 sources) Other urethritis; Translations: [Other urethritis] Onset: 07-19-2023 Episodic Results Test Name Value Interpretation Reference Range Facility Glucose measurement at [facility] deOrdered By: Dwayne Feliciano on 04-04-2025 Glucose [Mass/Vol] 103 mg/dL 74-106 [facility] Comment on above: MANAGEMENT OF PATIEN T CARE PER NURSING PROTOCOL Electrocardiogram reportOrde red By: Michael Rangel on 03-30-2025 EKG study [facility] [address] [place] [address] 12 Lead EKG 03/29/25 0944 MR#: [id number] Acct: [id number] Name: IVETTE GONZÁLES Rep #:[id number] : 1960 64 From: Michael rodriguez MD Attending Dr: Dr. Dwayne Feliciano MD Status: PRE SDC Ordering Dr: Dwayne Feliciano MD Date: [place] [facility] [place] Sex: M C Admitted: Test Reason : PRE OP Blood Pressure : */* mmHG Vent. Rate : 57 BPM Atrial Rate : 57 BPM P-R Int : 170 ms QRS Dur : 82 ms QT Int : 404 ms P-R-T Axes : 57 7 33 degrees QTcB Int : 393 ms Sinus bradycardia Otherwise normal ECG Confirmed by Michael Rangel ([id number]), purchasing expeditor MIGUEL REYES ([id number]) on 56:41:57 AM Referred By: Dwayne Feliciano Confirmed By: Michael Rangel 03/30/25 0642 Date _ Michael Rangel MD CC: Dr. Jeannette Galicia DO; Dr. Dwayne Feliciano MD ~ Signed [facility] Work Phone: Hepatitis A AB, Totalon 03-18 HEPATITIS A,TOT Negative Normal Negative [facility] Comment on above: Result Comment: Comm ent: The HAV total antibody assay detects both IgG and IgM but does not differentiate between them. A negative result suggests susceptibility to infection. A positive result could be due to vaccination, previously resolved infection or active infection. Testing for HAV IgM should be performed if active HAV infection is suspected. [facility] offers profiles that will automatically reflex positive HAV total antibody results to IgM (e.g., panel #[id number] HAV Antibody w/ Rfx). Performed at: [address] [id number] Communication Instructor: oHmero Moore PhD, Phone: [phone] Performed By: #### L 3890.6006, L500.2500, L501.9985, M100.651, L3890.6202, L3890.6301, L3100.0300, BTSPAT, L100.0100 ####[facility] [id number] [place], [address] MRSA/SAID NASAL SCREENon MRSA+SAID SCRN Reason for Exam: Surgery MRSA MRSA Negative S. AUREUS S. aureus Negative Normal [facility] Comment on above: Performed By: #### L 3890.6006, L500.2500, L501.9985, M100.651, L3890.6202, L3890.6301, L3100.0300, BTSPAT, L100.0100 ####[facility] [id number] [facility] [place], [place], [address] 12 Lead EKGon 03-29-2025 12 Lead EKG [facility] [address] [place] [address] 12 Lead EKG 03/29/25 0944 MR#: [id number] Acct: [id number] Name: IVETTE GONZÁLES Rep #: [id number] : 1960 64 From: Michael Rangel MD Attending Dr: Dr. Dwayne Feliciano MD Status: PRE [facility] [place] Ordering Dr: Dwayne Feliciano MD Date: 03/29/25 Location: [facility] [place] Sex: M C Admitted: Test Reason : PRE OP Blood Pressure : */* mmHG Vent. Rate : 57 BPM Atrial Rate : 57 BPM P-R Int : 170 ms QRS Dur : 82 ms QT Int : 404 ms P-R-T Axes : 57 7 33 degrees QTcB Int : 393 ms Sinus bradycardia Otherwise normal ECG Confirmed by Michael Rangel ([id number]), purchasing expeditor MIGUEL REYES ([id number]) on 03/30/2025 6:41:57 AM Referred By: Dwayne Feliciano Confirmed By: Michael Rangel 03/30/25 0642 Date Michael Rangel MD CC: Dr. Jeannette Galicia, DO; Dr. Dwayne Feliciano MD Signed Normal [facility] Absolute lymphocyte countOrd ered By: Dwayne Feliciano on 03-29-2025 Lymphocytes Auto (Unsp spec) [#/Vol] 2.06 10*3/uL 0.83-4.51 [facility] Absolute neutrophil countOrd ered By: Dwayne Feliciano on 03-29-2025 Neutrophils (Bld) [#/Vol] 5.2 10*3/uL 2.0-7.7 [facility] Activated partial thrombopla stin time (aPTT) in platelet poor plasma by coagulation aOrdered By: Reji Hernandez on 03-29-2025 aPTT Coag (PPP) [Time] 25.9 s 24.1-36.2 [facility] Anion gap in Serum or Plasma Ordered By: Dwayne Feliciano on 03-29-2025 Anion gap [Moles/Vol] 15 mmol/L 5-15 [facility] Automated lymphocyte count a s percentage of total leukocytesOrdered By: Dwayne Feliciano on 03-29-2025 Lymphocytes/100 WBC Auto (Unsp spec) 25.4 % 19-41 [facility] BUN/creatinine ratioOrdered By: Dwayne Feliciano on 03-29-2025 Urea nitrogen/Creatinine [Mass ratio] 8.3 mg/mg Low 10- [facility] Basic Metabolic Profile (BMP )on 03-29-2025 BUN/CRE 8.3 RATIO Low 10- [facility] Comment on above: Performed By: #### L 3890.6006, L500.2500, L501.9985, M100.651, L3890.6202, L3890.6301, L3100.0300, BTSPAT, L100.0100 #### [facility] [address] [place], [address] Calcium [Mass/Vol] 9.1 mg/dL Normal 7.6-11.0 [facility] Comment on above: Performed By: #### L 3890.6006, L500.2500, L501.9985, M100.651, L3890.6202, L3890.6301, L3100.0300, BTSPAT, L100.0100 #### [facility] [address] [place], [address] Chloride [Moles/Vol] 101 mmol/L Normal 98-108 [facility] Comment on above: Performed By: #### L 3890.6006, L500.2500, L501.9985, M100.651, L3890.6202, L3890.6301, L3100.0300, BTSPAT, L100.0100 #### [facility] [address] [place], [address] CO2 [Moles/Vol] 22.2 mmol/L Normal 21.0-32.0 [facility] Comment on above: Performed By: #### L 3890.6006, L500.2500, L501.9985, M100.651, L3890.6202, L3890.6301, L3100.0300, BTSPAT, L100.0100 #### [facility] [address] [place], [address] Creatinine [Mass/Vol] 0.93 mg/dL Normal 0.70-1.20 [facility] Comment on above: Performed By: #### L 3890.6006, L500.2500, L501.9985, M100.651, L3890.6202, L3890.6301, L3100.0300, BTSPAT, L100.0100 #### [facility] [address] [place], [address] GAP 15 Normal 5-15 [facility] Comment on above: Performed By: #### L 3890.6006, L500.2500, L501.9985, M100.651, L3890.6202, L3890.6301, L3100.0300, BTSPAT, L100.0100 #### [facility] [address] [place], [address] GFR/1.73 sq M.predicted among non-blacks MDRD (S/P/Bld) [Vol rate/Area] 91 mL/min/{1.73_m2} Normal >60 [facility] Comment on above: Result Comment: mL/m in/1.73m2 CKD-EPI Creatinine Equation (2020) Performed By: #### L 3890.6006, L500.2500, L501.9985, M100.651, L3890.6202, L3890.6301, L3100.0300, BTSPAT, L100.0100 #### [facility] [address] [place], [address] Glucose [Mass/Vol] 99 mg/dL Normal 70-99 [facility] Comment on above: Performed By: #### L 3890.6006, L500.2500, L501.9985, M100.651, L3890.6202, L3890.6301, L3100.0300, BTSPAT, L100.0100 #### [facility] [address] [place], [address] Potassium [Moles/Vol] 3.9 mmol/L Normal 3.3-5.1 [facility] Comment on above: Performed By: #### L 3890.6006, L500.2500, L501.9985, M100.651, L3890.6202, L3890.6301, L3100.0300, BTSPAT, L100.0100 #### [facility] [address] [place], [address] Sodium [Moles/Vol] 138 mmol/L Normal 133-145 [facility] Comment on above: Performed By: #### L 3890.6006, L500.2500, L501.9985, M100.651, L3890.6202, L3890.6301, L3100.0300, BTSPAT, L100.0100 #### [facility] [address] [place], [address] Urea nitrogen [Mass/Vol] 8 mg/dL Normal 4-19 [facility] Comment on above: Performed By: #### L 3890.6006, L500.2500, L501.9985, M100.651, L3890.6202, L3890.6301, L3100.0300, BTSPAT, L100.0100 #### [facility] [address] [place], [address] Basophil percentageOrdered B y: Dwaynecarmelo Feliciano on 03-29-2025 Basophils/100 WBC (Bld) 0.9 % 0-1 [facility] CBC W/Diff, Automatedon 03-18 Absolute Lymph 2.06 X10 3/uL Normal 0.83-4.51 [facility] Comment on above: Performed By: #### L 3890.6006, L500.2500, L501.9985, M100.651, L3890.6202, L3890.6301, L3100.0300, BTSPAT, L100.0100 #### [facility] [address] [place], [address] Absolute Neut 5.2 X10 3/uL Normal 2.0-7.7 [facility] Comment on above: Performed By: #### L 3890.6006, L500.2500, L501.9985, M100.651, L3890.6202, L3890.6301, L3100.0300, BTSPAT, L100.0100 #### [facility] [address] [place], [address] Basophils/100 WBC (Bld) 0.9 % Normal 0-1 [facility] Comment on above: Performed By: #### L 3890.6006, L500.2500, L501.9985, M100.651, L3890.6202, L3890.6301, L3100.0300, BTSPAT, L100.0100 #### [facility] [address] [place], [address] Eosinophils/100 WBC (Bld) 1.6 % Normal 0-5 [facility] Comment on above: Performed By: #### L 3890.6006, L500.2500, L501.9985, M100.651, L3890.6202, L3890.6301, L3100.0300, BTSPAT, L100.0100 #### [facility] [address] [place], [address] Erythrocyte distribution width (RBC) [Ratio] 13.2 % Normal 11.6-14.6 [facility] Comment on above: Performed By: #### L 3890.6006, L500.2500, L501.9985, M100.651, L3890.6202, L3890.6301, L3100.0300, BTSPAT, L100.0100 #### [facility] [address] [place], [address] Hematocrit (Bld) [Volume fraction] 51.0 % Normal 40-54 [facility] Comment on above: Performed By: #### L 3890.6006, L500.2500, L501.9985, M100.651, L3890.6202, L3890.6301, L3100.0300, BTSPAT, L100.0100 #### [facility] [address] [place], [address] Hemoglobin (Bld) [Mass/Vol] 17.7 g/dL High 13.0-16.5 [facility] Comment on above: Performed By: #### L 3890.6006, L500.2500, L501.9985, M100.651, L3890.6202, L3890.6301, L3100.0300, BTSPAT, L100.0100 #### [facility] [address] [place], [address] IG% 0.600 Normal 0.0-0.9 [facility] Comment on above: Result Comment: IG% - Immature Granulocytes (promyelocytes, myelocytes and metamyelocytes) > 1% indicates that a LEFT SHIFT is Present. Performed By: #### L 3890.6006, L500.2500, L501.9985, M100.651, L3890.6202, L3890.6301, L3100.0300, BTSPAT, L100.0100 #### [facility] [address] [place], [address] Lymphocytes/100 WBC (Bld) 25.4 % Normal 19-41 [facility] Comment on above: Performed By: #### L 3890.6006, L500.2500, L501.9985, M100.651, L3890.6202, L3890.6301, L3100.0300, BTSPAT, L100.0100 #### [facility] [address] [place], [address] MCH (RBC) [Entitic mass] 31.7 pg Normal 27.0-32.0 [facility] Comment on above: Performed By: #### L 3890.6006, L500.2500, L501.9985, M100.651, L3890.6202, L3890.6301, L3100.0300, BTSPAT, L100.0100 #### [facility] [address] [place], [address] MCHC (RBC) [Mass/Vol] 34.7 g/dL Normal 32-36 [facility] Comment on above: Performed By: #### L 3890.6006, L500.2500, L501.9985, M100.651, L3890.6202, L3890.6301, L3100.0300, BTSPAT, L100.0100 #### [facility] [address] [place], [address] MCV (RBC) [Entitic vol] 91.4 fL Normal 80-94 [facility] Comment on above: Performed By: #### L 3890.6006, L500.2500, L501.9985, M100.651, L3890.6202, L3890.6301, L3100.0300, BTSPAT, L100.0100 #### [facility] [address] [place], [address] Monocytes/100 WBC (Bld) 7.8 % Normal 0-10 [facility] Comment on above: Performed By: #### L 3890.6006, L500.2500, L501.9985, M100.651, L3890.6202, L3890.6301, L3100.0300, BTSPAT, L100.0100 #### [facility] [address] [place], [address] Neutrophils/100 WBC (Bld) 63.7 % Normal 47-70 [facility] Comment on above: Performed By: #### L 3890.6006, L500.2500, L501.9985, M100.651, L3890.6202, L3890.6301, L3100.0300, BTSPAT, L100.0100 #### [facility] [address] [place], [address] Nucleated RBC (Bld) [#/Vol] 0 10*3/uL Normal 0-5 [facility] Comment on above: Performed By: #### L 3890.6006, L500.2500, L501.9985, M100.651, L3890.6202, L3890.6301, L3100.0300, BTSPAT, L100.0100 #### [facility] [address] [place], [address] Platelet mean volume (Bld) [Entitic vol] 9.4 fL Normal 6.2-12.0 [facility] Comment on above: Performed By: #### L 3890.6006, L500.2500, L501.9985, M100.651, L3890.6202, L3890.6301, L3100.0300, BTSPAT, L100.0100 #### [facility] [address] [place], [address] Platelets (Bld) [#/Vol] 158 10*3/uL Normal 150-450 [facility] Comment on above: Performed By: #### L 3890.6006, L500.2500, L501.9985, M100.651, L3890.6202, L3890.6301, L3100.0300, BTSPAT, L100.0100 #### [facility] [address] [place], [address] RBC (Bld) [#/Vol] 5.58 10*6/uL Normal 4.6-6.2 [facility] Comment on above: Performed By: #### L 3890.6006, L500.2500, L501.9985, M100.651, L3890.6202, L3890.6301, L3100.0300, BTSPAT, L100.0100 #### [facility] [address] [place], [address] RDW SD 44.6 fl High 35.1-43.9 [facility] Comment on above: Performed By: #### L 3890.6006, L500.2500, L501.9985, M100.651, L3890.6202, L3890.6301, L3100.0300, BTSPAT, L100.0100 #### [facility] [address] [place], [address] WBC (Bld) [#/Vol] 8.1 10*3/uL Normal 4.4-11.0 [facility] Comment on above: Performed By: #### L 3890.6006, L500.2500, L501.9985, M100.651, L3890.6202, L3890.6301, L3100.0300, BTSPAT, L100.0100 #### [facility] [address] [place], [address] Carbon dioxide, total [Moles /volume] in Central venous bloodOrdered By: Dwayne Feliciano on 03-29-2025 CO2 [Moles/Vol] 22.2 mmol/L 21.0-32.0 [facility] Chloride assayOrdered By: Joe Feliciano on 03-29-2025 Chloride [Moles/Vol] 101 mmol/L 98-108 [facility] Eosinophil percentageOrdered By: Dwayne Feliciano on 03-29-2025 Eosinophils/100 WBC (Bld) 1.6 % 0-5 [facility] Erythrocyte distribution wid th ratioOrdered By: Dwayne Feliciano on 03-29-2025 Erythrocyte distribution width (RBC) [Ratio] 13.2 % 11.6-14.6 [facility] Erythrocyte distribution wid th standard deviationOrdered By: Dwaynecarmelo Feliciano on 03-29-2025 Erythrocyte distribution width (RBC) [Ratio] 44.6 fl High 35.1-43.9 [facility] Glomerular filtration rate ( GFR) estimation/1.73 sq m using serum, plasma, or whole bOrdered By: wDayne Feliciano on 03-29-2025 GFR/1.73 sq M.predicted among non-blacks MDRD (S/P/Bld) [Vol rate/Area] 91 mL/min/{1.73_m2} >60 [facility] Comment on above: mL/min/1.73m2 CKD-EP I Creatinine Equation (2020) HIVon 03-29-2025 HIV Non-Reactive Normal Nonreactive [facility] Comment on above: Result Comment: Non- Reactive Reactive Repeatedly reactive samples must be confirmed according to CDC recommended confirmatory algorithms. The subresults for either HIVAG or AHIV can be used as an aid in the selection of the confirmation algorithm for reactive samples. Send out specimens with Reactive results to [facility] for confirmation. Order the HIV antibody detection and differentiation: lc#[id number] Performed By: #### L 3890.6006, L500.2500, L501.9985, M100.651, L3890.6202, L3890.6301, L3100.0300, BTSPAT, L100.0100 ####[facility] [id number] [facility] [place], [place], [id number] Hematocrit Auto (Bld) [Volum e fraction]Ordered By: Dwayne Feliciano on 03-29-2025 Hematocrit (Bld) [Volume fraction] 51.0 % 40-54 [facility] Hemoglobin A1con 03-29-2025 HbA1c (Bld) [Mass fraction] 5.9 % High <=5.6 [facility] Comment on above: Result Comment: Norm al < 5.7 % Prediabetic 5.7 - 6.4 % Diabetic >or= 6.5 % Please note range changes. Performed By: #### L 3890.6006, L500.2500, L501.9985, M100.651, L3890.6202, L3890.6301, L3100.0300, BTSPAT, L100.0100 #### [facility] [address] [facility] [place], [place], [id number] (721) Hemoglobin A1c percentageOrd ered By: Dwayne Feliciano on 03-29-2025 HbA1c (Bld) [Mass fraction] 5.9 % High <5.7 [facility] Comment on above: Normal < 5.7 % Predi abetic 5.7 - 6.4 % Diabetic >or= 6.5 % Please note range changes. Hemoglobin measurementOrdere d By: Dwayne Feliciano on 03-29-2025 Hemoglobin (Bld) [Mass/Vol] 17.7 g/dL High 13.0-16.5 [facility] Hepatitis B Surface Antibody on 03-29-2025 HEP B Surf Ab Non-Reactive Normal [facility] Comment on above: Result Comment: <8.5 mIU/mL: Non-Reactive 8.5<= x <11.5 mIU/mL: Indeterminate >=11.5 mIU/mL: Reactive Non Reactive: Inconsistent with immunity less than <10 mIU/mL Reactive: Consistent with immunity greater than or equal to 10 mIU/mL Performed By: #### L 3890.6006, L500.2500, L501.9985, M100.651, L3890.6202, L3890.6301, L3100.0300, BTSPAT, L100.0100 #### [facility] [address] [facility] [place], [place], [address] Hepatitis C Antibodyon 03-29 Hepatitis C Ab Non-Reactive Normal Nonreactive [facility] Comment on above: Result Comment: Reac tive: Presumptive evidence of antibodies to HCV. Follow CDC recommendations for supplemental testing. Non-Reactive: Antibodies to HCV were not detected; does not exclude the possibility of exposure to HCV Reactive Results are presumptive evidence of antibodies to HCV. Follow CDC recommendations for supplemental testing. Order confirmation testing: HCV Quant by PCR testing - HCVPCR #[id number] Non Reactive: < 0.8 Equivocal: >/= 0.8 to < 1.0 Reactive: >/= 1.0 The CDC requires that a reactive/equivocal HCV antibody result be sent out for confirmation. HCV Quant by PCR testing. Performed By: #### L 3890.6006, L500.2500, L501.9985, M100.651, L3890.6202, L3890.6301, L3100.0300, BTSPAT, L100.0100 ####[facility] [id number] [facility]. [place], [place], [address] Immature granulocytes/100 WB C Auto (Bld)Ordered By: Dwayne Feliciano on 03-29-2025 Immature granulocytes/100 WBC (Bld) 0.600 % 0.0-0.9 [facility] Comment on above: IG% - Immature Granu locytes (promyelocytes, myelocytes and metamyelocytes) > 1% indicates that a LEFT SHIFT is Present. International normalized rat io (INR) calculationOrdered By: Reji Hernandez on 03-29-2025 INR Coag (Bld) [Relative time] 1.1 {INR} [facility] MCV (mean corpuscular volume ) determinationOrdered By: Dwayne Feliciano on 03-29-2025 MCV (RBC) [Entitic vol] 91.4 fL 80-94 [facility] MRSA screenOrdered By: Peyman Feliciano on 03-29-2025 MRSA DNA JACE+probe Ql (Unsp spec) [facility] Magnesiumon 03-29-2025 Magnesium [Mass/Vol] 2.3 mg/dL High 1.5-2.2 [facility] Comment on above: Performed By: #### L 300.3900, L501.5200, L300.4310 ####[facility] [address] [place], [place], [address] Magnesium measurement (mass/ volume)Ordered By: Reji Hernandez on 03-29-2025 Magnesium (Unsp spec) [Mass/Vol] 2.3 mg/dL High 1.5-2.2 [facility] Mean corpuscular hemoglobin (MCH) determinationOrdered By: Dwayne Feliciano on 03-29-2025 MCH (RBC) [Entitic mass] 31.7 pg 27.0-32.0 [facility] Mean corpuscular hemoglobin concentration (MCHC) determinationOrdered By: Dwayne Feliciano on 03-29-2025 MCHC (RBC) [Mass/Vol] 34.7 g/dL 32-36 [facility] Mean platelet volume determi nationOrdered By: Dwayne Feliciano on 03-29-2025 Platelet mean volume (Bld) [Entitic vol] 9.4 fL 6.2-12.0 [facility] Monocyte percentageOrdered B y: Dwayne Feliciano on 03-29-2025 Monocytes/100 WBC (Bld) 7.8 % 0-10 [facility] Neutrophil percentageOrdered By: Dwayne Feliciano on 03-29-2025 Neutrophils/100 WBC (Bld) 63.7 % 47-70 [facility] No Panel InformationOrdered By: Dwayne Feliciano on 03-29-2025 HIV (1&2) Antibody Non-Reactive Nonreactive [facility] Comment on above: Non-ReactiveReactive Repeatedly reactive samples must be confirmed according to CDC recommended confirmatory algorithms. The subresults for either HIVAG or AHIV can be used as an aid in the selection of the confirmation algorithm for reactive samples.Send out specimens with Reactive results to [facility] for confirmation.Order the HIV antibody detection and differentiation: #[id number] Nucleated red blood cell per centageOrdered By: Dwayne Feliciano on 03-29-2025 Nucleated RBC/100 WBC (Bld) [Ratio] 0 % 0-5 [facility] Orthopedic Visit Reporton Orthopedic Visit Report [facility] [address] [place] [address] [address] [place] [address] OFFICE VISIT Date of Service: 03/29/25 MR#: [id number] Acct: [id number] Name: IVETTE GONZÁLES Rep #: [id number] : 1960 Provider: Dr. Dwayne Feliciano MD Age/Sex: 64/M Location: [facility] [place].[facility] Status: Signed Intake Vital Signs 03/02/25 09:27 Height 5 ft 5 in Weight: 164 lb 4 oz BMI 27.3 Intake Visit Reasons: cervical spine Chief Complaint: pre op Accompanied by: Allergies codeine Adverse Reaction (Intermediate, Verified 03/29/25 08:04) Abd cramps/diarrhea morphine Adverse Reaction (Verified 03/29/25 08:04) Upset Stomach Medications ???Medication ???Instructions ???Recorded ???Confirmed ???Type gabapentin 300 mg capsule 300 mg PO TID 03/02/25 03/29/25 Hi story rosuvastatin 10 mg tablet 10 mg PO QHS 03/02/25 03/29/25 His tory Held on 03/21/25. Instructions: pt refused to take this at this time Have you fallen in the past year?: No [facility] Medical History (Updated 03/29/25 @ 11:38 by Sunita Kelley) Wears glasses Wears dentures Marijuana use Abrasion High cholesterol Loss of consciousness Migraine headache Syncope Smoker Shortness of breath on exertion Surgical History Hx of colonoscopy History of anal fissures Family History Mother CAD (coronary artery disease) Brother CAD (coronary artery disease) Social History household members: spouse Smoking Status: Current every day smoker tobacco type: cigarettes alcohol intake: current alcohol intake frequency: holidays/special occasions only HPI cervical spine Details: This documentation accurately reflects the service provided and the decisions made by me, Dr. Dwayne Feliciano MD 03/29/25 0757. Part of today???s visit was documented by Teresa FINCH, acting as scribe. IVETTE GONZÁLES is a 64 year old M here today for pre-op cervical spine, dos: 04/04/25. He has had worsening radicular pain and patch of numbness in the left forearm, along with right-sided symptoms that persist. He also has worsening balance and continues to have lower back issues as well. 03/02/25: IVETTE GONZÁLES is a 64 year old M here today for cervical and lumbar spine pain. Patient states the neck and back have been bothering him for quite a while. He states he saw Dr. Isra Carrero and he didn't know if it was all coming from the back and he was told he had bursitis in the hip. He decided to try physical therapy and over time it progressively gotten worse to the point where he couldn't walk very far without having to stop. He states he had an MRI of the lumbar spine and found some disc issues. He then had an MRI of the neck and he found some disc issues in the neck as well. Patient is currently in physical therapy right now. He does have some musculature soreness and will get more pain now while he is in PT. He states he does not have any pain in the neck unless he sleeps weird. He states his thumb, index and middle finger in the right hand gets numb and he gets radiating pain up the forearm into the elbow. Occasionally he will get the radiating pain all the way up the arm into the shoulder. He did have an EMG in January and was told the issues were coming from his neck, he does not have carpal tunnel. He states he is unable to sleep comfortably. The lumbar spine pain is over the left lumbar spine down the buttocks and into the posterior hamstring. He denies any pain into the right leg. He states when he walks the left leg feels like it locks up. He states he will get numbness in the anterior aspect of the left thigh. He denies any injections in the cervical or lumbar spine. He was prescribed gabapentin by Dr. Dhaliwal. He is seeing Dr. Whitaker next week for pain management. He does not have trouble writing, holding or dropping objects. He denies any issues with his balance when he walks and no recent falls. He does not have a history of heart problems, lung problems, diabetes or stroke. He does not take any blood thinners. 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 He is a smoker and smokes one pack per day. He is scheduled to be evaluated by Dr. Whitaker in pain management next week. Ortho Exam General General: Yes no acute distress Neurologic: Yes alert Psychologic: Yes reasonable and appropriate Spine SPINE TESTING CERVICAL THORACIC LUMBAR Musculoskeletal Strength 0=absent - 5=normal Details: Exertion neck shows midline right paraspinal tenderness, lower back shows midline left paraspinal tenderness neurologic motion of upper and lower extremities is 5 x 5 power normal shows lito (more content not included)... Normal [facility] Partial Thromboplast Timeon 03-29-2025 aPTT Coag (Bld) [Time] 25.9 s Normal 24.1-36.2 [facility] Comment on above: Performed By: #### L 300.3900, L501.5200, L300.4310 ####[facility] [address] [place], [place], [id number] Platelet countOrdered By: Joe Feliciano on 03-29-2025 Platelets (Bld) [#/Vol] 158 10*3/uL 150-450 [facility] Potassium measurement (mass/ volume)Ordered By: Dwayne Feliciano on 03-29-2025 Potassium (Unsp spec) [Mass/Vol] 3.9 mmol/L 3.3-5.1 [facility] Prothrombin Time w/INRon INR Coag (PPP) [Relative time] 1.1 {INR} Normal [facility] Comment on above: Performed By: #### L 300.3900, L501.5200, L300.4310 ####[facility] [address] [place], [address] PT Coag (PPP) [Time] 14.0 s Normal 11.7-14.9 [facility] Comment on above: Performed By: #### L 300.3900, L501.5200, L300.4310 ####[facility] [address] [place], [address] Prothrombin timeOrdered By: Reji Hernandez on 03-29-2025 PT Coag (PPP) [Time] 14.0 s 11.7-14.9 [facility] RBC Auto (Bld) [#/Vol]Ordere d By: Dwayne Feliciano on 03-29-2025 RBC (Bld) [#/Vol] 5.58 10*6/uL 4.6-6.2 [facility] Serum creatinine measurement (mass/volume)Ordered By: Dwayne Feliciano on 03-29-2025 Creatinine [Mass/Vol] 0.93 mg/dL 0.70-1.20 [facility] Serum glucose measurement (m ass/volume)Ordered By: Dwayne Feliciano on 03-29-2025 Glucose [Mass/Vol] 99 mg/dL 70-99 [facility] Serum hepatitis B virus surf daniela antibody detectionOrdered By: Dwayne Feliciano on 03-29-2025 HBV surface Ab Ql (S) Non-Reactive [facility] Comment on above: <8.5 mIU/mL: Non-[place] ctive8.5<= x <11.5 mIU/mL: Indeterminate>=11.5 mIU/mL: Reactive Non Reactive: Inconsistent with immunity less than <10 mIU/mL Reactive: Consistent with immunity greater than or equal to 10 mIU/mL Serum or plasma calcium karen urement (mass/volume)Ordered By: Dwayne Feliciano on 03-29-2025 Calcium [Mass/Vol] 9.1 mg/dL 7.6-11.0 [facility] Serum or plasma urea nitroge n measurement (mass/volume)Ordered By: Dwayne Feliciano on 03-29-2025 Urea nitrogen [Mass/Vol] 8 mg/dL 4-19 [facility] Sodium levelOrdered By: Carina Feliciano on 03-29-2025 Sodium [Moles/Vol] 138 mmol/L 133-145 [facility] Type AND Screen - PAT ONLYon 03-29-2025 Ab SCREEN GEL Negative Normal [facility] Comment on above: Order Comment: Surge ry Date: 04/04/25 Reason for Laboratory Test pre op [id number] No N N S cervical disc arthroplasty c5-6 Performed By: #### L 3890.6006, L500.2500, L501.9985, M100.651, L3890.6202, L3890.6301, L3100.0300, BTSPAT, L100.0100 #### [facility] [address] [facility] [place], [address] White blood cell (WBC) count Ordered By: Dwayne Feliciano on 03-29-2025 WBC (Bld) [#/Vol] 8.1 10*3/uL 4.4-11.0 [facility] MR/PAT.ANEon 03-21-2025 MR/PAT.ANE [facility] Medical Records Department [address] [place] [address] PAT - Anesthesia 03/21/25 1545 MR#: [id number] Acct: [id number] Name: IVETTE GONZÁLES Rep #: [id number] : 1960 64 From: Reji Hernandez MD PCP: Dr. 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 When Was Last Pacemaker Check QUESTION #4 FULL TEXT: You/Your Family Experience fever (hyperthermia) with Anesthesia Last Oral Intake Last Oral intake: Last Oral Intake NPO since Meds taken in AM with sips of water? Meds patient instructed to take am of surgery PONV PONV - publishing editor: PONV - publishing editor Female No 03/21/25 09:53 HX of Motion Sickness No 03/21/25 09:53 HX of N/V After Surgery No 03/21/25 09:53 Non-Smoker No 03/21/25 09:53 Duration of Surgery greater Yes 03/21/25 09:53 than 60 minutes Number of Risk Factors 1 03/21/25 09:53 PONV Score Low Risk 03/21/25 09:53 Height Weight Height Weight: Anesthesia: Height Weight Height 5 ft 5 in 03/02/25 09:27 Respiratory Assessment Respiratory Assessment - publishing editor: Respiratory Tract Infection Hx - publishing editor Hx Respiratory Tract Infection No 03/21/25 09:53 STOP Sleep Apnea STOP Sleep Apnea - publishing editor: STOP Sleep Apnea - publishing editor Hx Hypertension No 03/21/25 09:53 Hx Sleep Apnea No 03/21/25 09:53 CPAP BIPAP Do you snore loudly (louder No 03/21/25 09:53 than talking or can be heard Do you often feel tired/ No 03/21/25 09:53 fatigued/ sleepy during daytime? Has anyone observed you stop No 03/21/25 09:53 breathing during sleep? STOP Results Negative 03/21/25 09:53 QUESTION #5 FULL TEXT : Do you snore loudly (louder than talking or can be heard through closed doors)? 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 Specify any problems Hx of Preganancy in last 3 N/A 03/21/25 09:53 Months Nurse Filling Out Transfusion DANAY 03/21/25 09:53 Questions: Date: 03/21/25 03/21/25 09:53 Time: 09:56 03/21/25 09:53 Patient unable to answer at this time (ie. confused, unrespo /Reproducti on History /Reproducti ve History - publishing editor: /Reproducti ve Hx- publishing editor Hx Now No 03/21/25 09:53 Gestational Age (in weeks): EDC: Hx Hx Para Hx Section SAB No 03/21/25 09:53 [facility] Medical History (Updated 03/21/25 @ 09:53 by Kathya Recinos) Wears glasses Wears dentures Marijuana use Abrasion High cholesterol Loss of consciousness Migraine headache Syncope Smoker Shortness of breath on exertion Home Medications ???Medication ???Instructions ???Recorded ???Last Taken ???Type gabapentin 300 mg capsule 300 mg PO TID 03/02/25 Unknown His tory rosuvastatin 10 mg tablet 10 mg PO QHS 03/02/25 Unknown Hist ory Held on 03/21/25. Instructions: pt refused to take this at this time Allergy/AdvReac Type Severity Reaction Status Date / Time codeine AdvReac Intermediate Abd Verified 03/21/25 09:34 cramps/diarrhea morphine AdvReac Upset Verified 03/02/25 09:28 Stomach Family History Mother CAD (coronary artery disease) Brother CAD (coronary artery disease) Surgical History (U (more content not included)... Normal [facility] Cerv Spine 2 or 3 Viewson Cerv Spine 2 or 3 Views [facility] Imaging Services [address] [place], [place] [id number] Cerv Spine 2 or 3 Views MR#: [id number] Acct: [id number] Name: IVETTE GONZÁLES Rep #: [id number] : 1960 M 64 From: Espinoza Boyer MD PCP: Dr. Jeannette Galicia DO Status: DEP AMB Study: Cerv Spine 2 or 3 Views Date of Exam: 03/02/25 Exam# [id number] Ordering Dr: Shannon Hernandez PROCEDURE: CERV SPINE 2 OR 3 VIEWS 03/02/2025 REASON FOR EXAM: PAIN TECHNIQUE: 2 views of the cervical spine. Flexion-extension COMPARISON: None available FINDINGS: Cervical spine is visualized from the skull base to the bottom of C7. No fracture or malalignment identified. No prevertebral soft tissue swelling. Mid to lower cervical anterior osteophyte formation. No evidence of instability. Mild disc space narrowing C6-7. RAD/Cerv Spine 2 or 3 Views IMPRESSION: Flexion-extension as above. Reading Location: [facility] CC: RAISSA Ford; Dr. 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 Jeannette Galicia DO Status: DEP AMB Study: L/S Spine Min 4 Views Date of Exam: 03/02/25 Exam# [id number] Ordering Dr: Dwayne Feliciano MD PROCEDURE: L/S SPINE MIN 4 VIEWS 03/02/2025 REASON FOR EXAM: CHRONIC PAIN TECHNIQUE: Four views; AP, lateral, flexion-extension COMPARISON: None available FINDINGS: 5 [id number] lumbar vertebral body types identified. Mild leftward curvature thoracolumbar spine. Mild anterior wedge deformity of L1 may be physiologic with similar appearance noted at T12. No malalignment. No evidence of instability. L1-2 and L2-3 moderate disc space narrowing with degenerative endplate changes and anterior osteophyte formation. Aortoiliac atherosclerotic calcification. RAD/L/S Spine Min 4 Views IMPRESSION: Spondylosis/discogen ic change as above. Reading Location: [id number] CC: Dr. Jeannette Galicia DO; Dr. 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 Dwayne Feliciano MD Age/Sex: 64/M Location: [facility] [place] [facility] Status: Signed Intake Vital Signs 03/02/25 09:27 Height 5 ft 5 in Weight: 164 lb 4 oz BMI 27.3 Intake Visit Reasons: CERVICAL SPINE Chief Complaint: Cervical Spine Pain Accompanied by: Is patient in pain?: Yes Pain scale (1-10): 3 Allergies morphine Adverse Reaction (Verified 03/02/25 09:28) Upset Stomach Medications ???Medication ???Instructions ???Recorded ???Confirmed ???Type gabapentin 300 mg capsule 300 mg PO TID 03/02/25 03/02/25 Hi story rosuvastatin 10 mg tablet 10 mg PO QHS 03/02/25 03/02/25 His tory Have you fallen in the past year?: No PFSH Surgical History History of anal fissures Family History Mother CAD (coronary artery disease) Brother CAD (coronary artery disease) Social History household members: spouse Smoking Status: Current every day smoker alcohol intake: current alcohol intake frequency: holidays/special occasions only HPI CERVICAL SPINE Details: This documentation accurately reflects the service provided and the decisions made by me, Dr. Dwayne Feliciano MD 03/02/25 09. Part of today???s visit was documented by Meg Fuentes ATC and Estefany Sheth RN, acting as scribe. IVETTE GONZÁLES is a 64 year old M here today for cervical and lumbar spine pain. Patient states the neck and back have been bothering him for quite a while. He states he saw Dr. Isra Carrero and he didn't know if it was all coming from the back and he was told he had bursitis in the hip. He decided to try physical therapy and over time it progressively gotten worse to the point where he couldn't walk very far without having to stop. He states he had an MRI of the lumbar spine and found some disc issues. He then had an MRI of the neck and he found some disc issues in the neck as well. Patient is currently in physical therapy right now. He does have some musculature soreness and will get more pain now while he is in PT. He states he does not have any pain in the neck unless he sleeps weird. He states his thumb, index and middle finger in the right hand gets numb and he gets radiating pain up the forearm into the elbow. Occasionally he will get the radiating pain all the way up the arm into the shoulder. He did have an EMG in January and was told the issues were coming from his neck, he does not have carpal tunnel. He states he is unable to sleep comfortably. The lumbar spine pain is over the left lumbar spine down the buttocks and into the posterior hamstring. He denies any pain into the right leg. He states when he walks the left leg feels like it locks up. He states he will get numbness in the anterior aspect of the left thigh. He denies any injections in the cervical or lumbar spine. He was prescribed gabapentin by Dr. Dhaliwal. He is seeing Dr. Whitaker next week for pain management. He does not have trouble writing, holding or dropping objects. He denies any issues with his balance when he walks and no recent falls. He does not have a history of heart problems, lung problems, diabetes or stroke. He does not take any blood thinners. 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 He is a smoker and smokes one pack per day. He is scheduled to be evaluated by Dr. Whitaker in pain management next week. Ortho Exam General General: Yes no acute distress Neurologic: Yes alert Psychologic: Yes reasonable and appropriate Spine SPINE TESTING CERVICAL THORACIC LUMBAR Musculoskeletal Strength 0=absent - 5=normal Details: Exertion neck shows midline right paraspinal tenderness, lower back shows midline left paraspinal tenderness neurologic motion of upper and lower extremities is 5 x 5 power normal shows normal sensations in all dermatomes with Jamar's negative. Romberg's is positive. Tandem gait shows mild imbalance. Reflexes are brisk. There is no clonus. Coding Level of Care Code Off vis,new,level 5 Diagnoses Cervical myelopathy with cervical radiculopathy G95.9; M54.12 Spinal stenosis of lumbar region with neurogenic claudication M48.062 Spondylolisthesis, lumbar region M43.16 Time Spent (min) 55 Assessment and Plan Assessment and Plan (1) Cervical myelopathy with cervical radiculopathy: Status: Acute (2) Spinal stenosis of lumbar region with neurogenic claudication: Status: Acute (3) Spondylolisthesis, lumbar region: Status: Ac (more content not included)... Normal [facility] NCS and/or EMG Patienton NCS and/or EMG Patient [facility] Pulmonary Services/Neurology [address] [place] [address] MR#: [id number] Acct: [id number] Name: IVETTE GONZÁLES Rep #: [id number] : 1960 64 From: Valentino Arrieta MD Referring Dr: Isra Carrero MD Status: REG CLI Location: PSN Date: 02/06/25 Sex: M C NCS and/or EMG Patient Report Ordering Doctor: Isra Carrero DATE OF SERVICE: 02/06/25 Clinical Summary: 64 year old male patient presenting with symptoms of pain, numbness, and tingling in the right upper extremity. Nerve Conduction Studies Summary: Nerve conduction studies performed in the right upper extremity were within normal ranges. Needle Examination Summary: Needle examination of select muscles of the right upper extremity demonstrated increased insertional activity and spontaneous activity (positive sharp waves) in the left flexor carpi radialis muscle. There was a higher proportion of motor unit action potentials with reduced recruitment, increased amplitude, increased duration, and polyphasia in the right triceps muscle. Impression: This is an abnormal study. There is electrodiagnostic evidence of a subacute to chronic, right C7 radiculopathy with active denervation. There is no electrodiagnostic evidence of a right median mononeuropathy at the wrist (carpal tunnel syndrome) or ulnar mononeuropathy. Multi Select Codes Neurology Neurology Interp Codes: 78350-31 Musc test done w/n test comp (interp) (1) and 49723-71 Nrv cndj test 7-8 studies (interp) 02/06/25 1506 Date Valentino Arrieta MD CC: Dr. Valentino Arrieta MD; Dr. Jeannette Galicia DO; Dr. 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 Proteinuria) CKD 2 Kidney damage with mild loss 60-89 of kidney function CKD 3a Mild to moderate loss of kidney 45-59 function CKD 3b Moderate to severe loss of 30-44 of kindey function CKD 4 Severe loss of kidney function 15-29 CKD 5 Kidney failure <15 Note: (go live 2024) the eGFR calculation was updated to the 2020 CKD-EPI creatinine equation without a race factor to calculate the eGFR results. Performed By: #### C MP, LIPID, GFR #### [address] [place], [place] [address] CMPon 01-31-2025 Albumin Level 4.1 G/dL Normal 3.4-4.8 [facility] Comment on above: Performed By: #### C MP, LIPID, GFR #### [address] [address] Albumin/Globulin [Mass ratio] 1.1 {ratio} Normal 1.1-2.5 [facility] Comment on above: Performed By: #### C MP, LIPID, GFR #### [address] [address] ALP [Catalytic activity/Vol] 102 U/L Normal 40-135 [facility] Comment on above: Performed By: #### C MP, LIPID, GFR #### [address] [address] ALT [Catalytic activity/Vol] 24 U/L Normal 16-63 [facility] Comment on above: Performed By: #### C MP, LIPID, GFR #### [address] [address] AST [Catalytic activity/Vol] 25 U/L Normal 10-40 [facility] Comment on above: Performed By: #### C MP, LIPID, GFR #### [address] [address] Bili Total 0.5 mg/dL Normal 0.2-1.0 [facility] Comment on above: Result Comment: Use of this assay is not recommended for patients undergoing treatment with eltrombopag due to the potential for falsely elevated results. Performed By: #### C MP, LIPID, GFR #### [address] [address] BUN/Creatinine Ratio 5 ratio Low 7-27 [facility] Comment on above: Performed By: #### C MP, LIPID, GFR #### [address] [address] Calcium [Mass/Vol] 9.1 mg/dL Normal 8.4-10.2 [facility] Comment on above: Performed By: #### C MP, LIPID, GFR #### [address] [address] Chloride [Moles/Vol] 100 mmol/L Normal 98-107 [facility] Comment on above: Performed By: #### C MP, LIPID, GFR #### [address] [address] CO2 [Moles/Vol] 30 mmol/L Normal 23-31 [facility] Comment on above: Performed By: #### C MP, LIPID, GFR #### [address] [address] Creatinine [Mass/Vol] 0.93 mg/dL Normal 0.70-1.30 [facility] Comment on above: Result Comment: Test ing performed on Really Simple Dimension EXL analyzer using a modified kinetic Yasmin technique. Performed By: #### C MP, LIPID, GFR #### [address] [address] Electrolyte Balance 6.0 mEq/L Normal 4.0-15.0 [facility] Comment on above: Performed By: #### C MP, LIPID, GFR #### [address] [address] Globulin 3.6 G/dL Normal 1.5-3.8 [facility] Comment on above: Performed By: #### C MP, LIPID, GFR #### [address] [address] Glucose [Mass/Vol] 89 mg/dL Normal 80-115 [facility] Comment on above: Performed By: #### C MP, LIPID, GFR #### [address] [address] Potassium [Moles/Vol] 4.0 mmol/L Normal 3.5-5.1 [facility] Comment on above: Performed By: #### C MP, LIPID, GFR #### [address] [address] Sodium [Moles/Vol] 136 mmol/L Normal 136-145 [facility] Comment on above: Performed By: #### C MP, LIPID, GFR #### [address] [address] Total Protein 7.7 G/dL Normal 6.4-8.2 [facility] Comment on above: Performed By: #### C MP, LIPID, GFR #### [address] [address] Urea nitrogen [Mass/Vol] 5 mg/dL Low 7-18 [facility] Comment on above: Performed By: #### C MP, LIPID, GFR #### [address] [place], [place] [address] LIPIDon 01-31-2025 Cholesterol [Mass/Vol] 171 mg/dL Normal 0-200 [facility] Comment on above: Result Comment: Chol esterol Reference Interval: Less than 200 Desirable 200-239 Borderline high risk 240 and above High risk Performed By: #### C MP, LIPID, GFR #### [address] [address] Cholesterol in HDL [Mass/Vol] 39 mg/dL Low 40-60 [facility] Comment on above: Performed By: #### C MP, LIPID, GFR #### [address] [address] Cholesterol in LDL [Mass/Vol] 103 mg/dL Normal 0-130 [facility] Comment on above: Performed By: #### C MP, LIPID, GFR #### [address] [address] Triglyceride [Mass/Vol] 144 mg/dL Normal 0-150 [facility] Comment on above: Result Comment: Trig lyceride Reference Interval: Less than 150 Normal 150-199 Borderline high risk 200-499 High risk 500 or higher Very high risk Performed By: #### C MP, LIPID, GFR #### [address] [address] UAon 08-25-2024 Color (U) Yellow Normal [facility] Comment on above: Performed By: #### U A UAMIC #### [address] [address] Glucose (U) [Mass/Vol] Negative Normal Negative [facility] Comment on above: Performed By: #### U A UAMIC #### [address] [address] Ketones Ql (U) Negative Normal Neg-Trace [facility] Comment on above: Performed By: #### U A, UAMIC #### [place] [address] UA Appear Clear Normal Clear [facility] Comment on above: Performed By: #### U A, UAMIC #### [place] [address] UA Blood Negative Normal Neg-Trace [facility] Comment on above: Performed By: #### U A, UAMIC #### [place] [address] UA Leuk Est Negative Normal Negative [facility] Comment on above: Performed By: #### U A, UAMIC #### [place] [address] UA Nitrite Negative Normal Negative [facility] Comment on above: Performed By: #### U A, UAMIC #### [place] [address] UA pH 6.0 Normal 5.0 - 8.0 [facility] Comment on above: Performed By: #### U A, UAMIC #### [place] [address] UA Protein Negative Normal Negative [facility] Comment on above: Performed By: #### U A, UAMIC #### [place] [address] UA Spec Grav 1.010 Normal 1.006-1.029 [facility] Comment on above: Performed By: #### U A, UAMIC #### [place] [address] UA Specimen Type Clean Catch Normal [facility] Comment on above: Performed By: #### U A, UAMIC #### [place] [address] UA Urobilinogen 0.2 E.U./dL Normal 0.2-1.0 [facility] Comment on above: Performed By: #### U A, UAMIC #### [place] [address] Urobilinogen (U) [Mass/Vol] Negative Normal Neg-Trace [facility] Comment on above: Performed By: #### U A, UAMIC #### [facility] [address] [place] [address] UAMICon 08-25-2024 UA RBC Negative Normal 0-2 [facility] Comment on above: Performed By: #### U A, UAMIC #### [facility] [address] [place] [address] UA Squam Epithelial Rare Normal 0-20 [facility] Comment on above: Performed By: #### U A, UAMIC #### [facility] [address] [place] [address] UA WBC Rare Normal 0-5 [facility] Comment on above: Performed By: #### U A, UAMIC #### [facility] [address] [place] [address] US SCROTUM CONTENTSon 2023 US SCROTUM CONTENTS ORIGINAL EXAMINATION: ULTRASOUND OF THE SCROTUM/TESTICLES WITH COLOR DOPPLER FLOW EVALUATION03/24/2024 8:48 am Scrotal Ultrasound with Duplex Doppler evaluation TECHNIQUE: Duplex ultrasound using B-mode/wu scaled imaging, Doppler spectral analysis and color flow Doppler was obtained of the testicles. Grayscale, color Doppler and spectral waveform evaluation COMPARISON: None HISTORY: ORDERING SYSTEM PROVIDED HISTORY: Reason for Exam: right testicle pain, FINDINGS: Right testicle: 3.8 x 1.6 x 2.2 cm Left testicle: 3.4 x 1.8 x 2.4 cm No focal nor diffuse abnormalities are seen. Color Doppler flow is seen in both testicles in a symmetric fashion. Spectral waveform analysis of the testicles shows arterial and venous waveforms in both testicles. Incidental 6 mm left epididymal cyst. Small left hydrocele. IMPRESSION: 1. Normal testicular ultrasound. 2. Incidental 6 mm left epididymal cyst. 3. Small left hydrocele. Interpreted by: Jerome Campbell DO Preliminary Report By: Jerome Campbell DO Electronically signed By Jerome Campbell DO Dictated Date: 03/24/2024 3:13:57 PM Prelim Date: 03/24/2024 3:15:00 PM Sign Date: 03/24/2024 3:15:00 PM Ordering Provider: EFFIE Doty [facility] ([place]) UAon 01-21-2024 Color (U) Yellow Normal [facility] ([place] Comment on above: Performed By: #### U AMIC, UA #### [place] [address] Glucose (U) [Mass/Vol] Negative Normal Negative [facility] ([place]) Comment on above: Performed By: #### U AMIC, UA #### [address] [place] [address] Ketones Ql (U) Negative Normal Neg-Trace [facility] ([place] Comment on above: Performed By: #### U AMIC, UA #### [place] [address] UA Appear Clear Normal Clear [facility] ([place] Comment on above: Performed By: #### U AMIC, UA #### [place] [address] UA Blood Negative Normal Neg-Trace [facility] ([place] Comment on above: Performed By: #### U AMIC, UA #### [place] [address] UA Leuk Est Negative Normal Negative [facility] ([place] Comment on above: Performed By: #### U AMIC, UA #### [place] [address] UA Nitrite Negative Normal Negative [facility] ([place] Comment on above: Performed By: #### U AMIC, UA #### [place] [address] UA pH 6.0 Normal 5.0 - 8.0 [facility] ([place] Comment on above: Performed By: #### U AMIC, UA #### [place] [address] UA Protein Negative Normal Negative [facility] ([place] Comment on above: Performed By: #### U AMIC, UA #### [place] [address] UA Spec Grav 1.010 Normal 1.006-1.029 [facility] ([place] Comment on above: Performed By: #### U AMIC, UA #### [address] [address] UA Specimen Type Clean Catch Normal [facility] ([place] Comment on above: Performed By: #### U AMIC, UA #### [facility] [address] [place] [address] UA Urobilinogen 0.2 E.U./dL Normal 0.2-1.0 [facility] ([place] Comment on above: Performed By: #### U AMIC, UA #### [address] [address] Urobilinogen (U) [Mass/Vol] Negative Normal Neg-Trace [facility] ([place] Comment on above: Performed By: #### U AMIC, UA #### [address] [address] UAMICon 01-21-2024 UA RBC Rare Normal 0-2 [facility] ([place] Comment on above: Performed By: #### U AMIC, UA #### [address] [address] UA Squam Epithelial Negative Normal 0-20 [facility] ([place] Comment on above: Performed By: #### U AMIC, UA #### [address] [address] UA WBC Rare Normal 0-5 [facility] ([place] Comment on above: Performed By: #### U AMIC, UA #### [place] [address] .GFRon 01-14-2024 GFR 86 ml/min/1.73sqm Normal [facility] ([place] Comment on above: Result Comment: GFR Population mean for , Non- Americans Ages 20-29 = 116 mL/min/1.73 sq.m. Ages 30-39 = 107 mL/min/1.73 sq.m. Ages 40-49 = 99 mL/min/1.73 sq.m. Ages 50-59 = 93 mL/min/1.73 sq.m. Ages 60-69 = 85 mL/min/1.73 sq.m. Ages 70+ = 75 mL/min/1.73 sq.m. Chronic Kidney Disease: Less than 60 mL/min/1.73 square meters End Stage Renal Disease: Less than 15 mL/min/1.73 square meters Performed By: #### G FR, CMP, LIPID #### [address] [address] GFR Non- 71 ml/min/1.73sqm Normal [facility] ([place] Comment on above: Result Comment: GFR Population mean for , Non- Americans Ages 20-29 = 116 mL/min/1.73 sq.m. Ages 30-39 = 107 mL/min/1.73 sq.m. Ages 40-49 = 99 mL/min/1.73 sq.m. Ages 50-59 = 93 mL/min/1.73 sq.m. Ages 60-69 = 85 mL/min/1.73 sq.m. Ages 70+ = 75 mL/min/1.73 sq.m. Chronic Kidney Disease: Less than 60 mL/min/1.73 square meters End Stage Renal Disease: Less than 15 mL/min/1.73 square meters Performed By: #### G FR, CMP, LIPID #### [address] [address] CMPon 01-14-2024 Albumin Level 4.2 G/dL Normal 3.4-4.8 [facility] ([place] Comment on above: Performed By: #### G FR, CMP, LIPID #### [address] [address] Albumin/Globulin [Mass ratio] 1.1 {ratio} Normal 1.1-2.5 [facility] ([place] Comment on above: Performed By: #### G FR, CMP, LIPID #### [address] [address] ALP [Catalytic activity/Vol] 99 U/L Normal 40-135 [facility] ([place] Comment on above: Performed By: #### G FR, CMP, LIPID #### [address] [address] ALT [Catalytic activity/Vol] 27 U/L Normal 16-63 [facility] ([place] Comment on above: Performed By: #### G FR, CMP, LIPID #### [address] [address] AST [Catalytic activity/Vol] 20 U/L Normal 10-40 [facility] ([place] Comment on above: Performed By: #### G FR, CMP, LIPID #### [address] [address] Bili Total 0.6 mg/dL Normal 0.2-1.0 [facility] ([place]) Comment on above: Result Comment: Use of this assay is not recommended for patients undergoing treatment with eltrombopag due to the potential for falsely elevated results. Performed By: #### G FR, CMP, LIPID #### [address] [address] BUN/Creatinine Ratio 10 ratio Normal 7-27 [facility] ([place]) Comment on above: Performed By: #### G FR, CMP, LIPID #### [address] [address] Calcium [Mass/Vol] 9.1 mg/dL Normal 8.4-10.2 [facility] ([place]) Comment on above: Performed By: #### G FR, CMP, LIPID #### [address] [address] Chloride [Moles/Vol] 100 mmol/L Normal 98-107 [facility] ([place] Comment on above: Performed By: #### G FR, CMP, LIPID #### [address] [address] CO2 [Moles/Vol] 28 mmol/L Normal 23-31 [facility] ([place] Comment on above: Performed By: #### G FR, CMP, LIPID #### [address] [address] Creatinine [Mass/Vol] 1.05 mg/dL Normal 0.70-1.30 [facility] ([place]) Comment on above: Performed By: #### G FR, CMP, LIPID #### [address] [address] Electrolyte Balance 9.0 mEq/L Normal 4.0-15.0 [facility] ([place]) Comment on above: Performed By: #### G FR, CMP, LIPID #### [address] [address] Globulin 3.7 G/dL Normal [facility] ([place] Comment on above: Performed By: #### G FR, CMP, LIPID #### [address] [address] Glucose [Mass/Vol] 102 mg/dL Normal 80-115 [facility] ([place]) Comment on above: Performed By: #### Cory ASTUDILLO, CMP, LIPID #### [address] [address] Potassium [Moles/Vol] 4.8 mmol/L Normal 3.5-5.1 [facility] ([place]) Comment on above: Performed By: #### Cory ASTUDILLO, CMP, LIPID #### [address] [address] Sodium [Moles/Vol] 137 mmol/L Normal 136-145 [facility] ([place] Comment on above: Performed By: #### Cory ASTUDILLO, CMP, LIPID #### [address] [address] Total Protein 7.9 G/dL Normal 6.4-8.2 [facility] ([place] Comment on above: Performed By: #### Cory FR, CMP, LIPID #### [address] [address] Urea nitrogen [Mass/Vol] 10 mg/dL Normal 7-18 [facility] ([place] Comment on above: Performed By: #### Cory FR, CMP, LIPID #### [address] [address] LABORATORYOrdered By: SYSTEM SYSTEM on 01-14-2024 Albumin BCP dye [Mass/Vol] 4.2 G/dL Normal 3.4 - 4.8 G/dL AO ADM SS Albumin/Globulin [Mass ratio] 1.1 {ratio} Normal 1.1 - 2.5 ratio AO ADM SS ALP [Catalytic activity/Vol] 99 U/L Normal 40 - 135 U/L AO ADM SS ALT With P-5'-P [Catalytic activity/Vol] 27 U/L Normal 16 - 63 U/L AO ADM SS AST With P-5'-P [Catalytic activity/Vol] 20 U/L Normal 10 - 40 U/L AO ADM SS Bilirubin [Mass/Vol] 0.6 mg/dL Normal 0.2 - 1 .0 mg/dL AO ADM SS Comment on above: Interpretive Data: U se of this assay is not recommended for patients undergoing treatment with eltrombopag due to the potential for falsely elevated results. Calcium [Mass/Vol] 9.1 mg/dL Normal 8.4 - 10. 2 mg/dL AO ADM SS Chloride [Moles/Vol] 100 mmol/L Normal 98 - 10 7 mmol/L AO ADM SS CO2 [Moles/Vol] 28 mmol/L Normal 23 - 31 mmol/L AO ADM SS Creatinine [Mass/Vol] 1.05 mg/dL Normal 0.70 - 1.30 mg/dL AO ADM SS Electrolyte Balance 9.0 mEq/L Normal 4.0 - 15 .0 mEq/L AO ADM SS GFR/1.73 sq M.predicted among blacks MDRD (S/P/Bld) [Vol rate/Area] 86 ml/min/1.73sqm Invalid Interpretation Code AO Chemistry S Comment on above: Interpretive Data: GFR Population mean for , Non- Americans Ages 20-29 = 116 mL/min/1.73 sq.m. Ages 30-39 = 107 mL/min/1.73 sq.m. Ages 40-49 = 99 mL/min/1.73 sq.m. Ages 50-59 = 93 mL/min/1.73 sq.m. Ages 60-69 = 85 mL/min/1.73 sq.m. Ages 70+ = 75 mL/min/1.73 sq.m. Chronic Kidney Disease: Less than 60 mL/min/1.73 square meters End Stage Renal Disease: Less than 15 mL/min/1.73 square meters GFR/1.73 sq M.predicted among non-blacks MDRD (S/P/Bld) [Vol rate/Area] 71 ml/min/1.73sqm Invalid Interpretation Code AO Chemistry S Comment on above: Interpretive Data: GFR Population mean for , Non- Americans Ages 20-29 = 116 mL/min/1.73 sq.m. Ages 30-39 = 107 mL/min/1.73 sq.m. Ages 40-49 = 99 mL/min/1.73 sq.m. Ages 50-59 = 93 mL/min/1.73 sq.m. Ages 60-69 = 85 mL/min/1.73 sq.m. Ages 70+ = 75 mL/min/1.73 sq.m. Chronic Kidney Disease: Less than 60 mL/min/1.73 square meters End Stage Renal Disease: Less than 15 mL/min/1.73 square meters Globulin 3.7 G/dL Invalid Interpretation Code AO ADM SS Glucose [Mass/Vol] 102 mg/dL Normal 80 - 115 mg/dL AO ADM SS Potassium [Moles/Vol] 4.8 mmol/L Normal 3.5 - 5.1 mmol/L AO ADM SS Protein [Mass/Vol] 7.9 G/dL Normal 6.4 - 8.2 G/dL AO ADM SS Sodium [Moles/Vol] 137 mmol/L Normal 136 - 145 mmol/L AO ADM SS Urea nitrogen [Mass/Vol] 10 mg/dL Normal 7 - 18 mg/dL AO ADM SS Urea nitrogen/Creatinine [Mass ratio] 10 ratio Normal 7 - 27 ratio AO ADM SS LABORATORYOrdered By: Kenneth Bravo on 01-14-2024 Cholesterol [Mass/Vol] 197 mg/dL Normal 0 - 200 mg/dL AO ADM SS Comment on above: Interpretive Data: C holesterol Reference Interval: Less than 200 Desirable 200-239 Borderline high risk 240 and above High risk Cholesterol in HDL [Mass/Vol] 38 mg/dL Low 40 - 60 mg/dL AO ADM SS Cholesterol in LDL [Mass/Vol] 125 mg/dL Normal 0 - 130 mg/dL AO ADM SS Triglyceride [Mass/Vol] 168 mg/dL High 0 - 150 mg/d L AO ADM SS Comment on above: Interpretive Data: T riglyceride Reference Interval: Less than 150 Normal 150-199 Borderline high risk 200-499 High risk 500 or higher Very high risk LIPIDon 01-14-2024 Cholesterol [Mass/Vol] 197 mg/dL Normal 0-200 [facility] ([place]) Comment on above: Result Comment: Chol esterol Reference Interval: Less than 200 Desirable 200-239 Borderline high risk 240 and above High risk Performed By: #### G FR, CMP, LIPID #### [id number] [place], [place] [address] Cholesterol in HDL [Mass/Vol] 38 mg/dL Low 40-60 [facility] ([place]) Comment on above: Performed By: #### G FR, CMP, LIPID #### Sonny [address] [address] Cholesterol in LDL [Mass/Vol] 125 mg/dL Normal 0-130 [facility] ([place] Comment on above: Performed By: #### G FR, CMP, LIPID #### Sonny [address] [address] Triglyceride [Mass/Vol] 168 mg/dL High 0-150 [facility] ([place]) Comment on above: Result Comment: Trig lyceride Reference Interval: Less than 150 Normal 150-199 Borderline high risk 200-499 High risk 500 or higher Very high risk Performed By: #### G FR, CMP, LIPID #### [address] [address] LABORATORYOrdered By: SYSTEM SYSTEM on 07-21-2023 Prostate specific Ag [Mass/Vol] 1.10 ng/mL Invalid Interpretation Code 0.00 - 4.00 ng/mL AO ADM SS PSAon 07-21-2023 Prostate Specific Antigen 1.10 ng/mL Normal 0.00-4.00 [facility] ([place]) Comment on above: Performed By: #### P SA #### [address] [address] UAon 07-20-2023 Color (U) Yellow Normal [facility] ([place] Comment on above: Performed By: #### U AMIC, UA #### [facility] [address] [place] [address] Glucose (U) [Mass/Vol] Negative Normal Negative [facility] ([place]) Comment on above: Performed By: #### U AMIC, UA #### [place] [address] Ketones Ql (U) Negative Normal Neg-Trace [facility] ([place] Comment on above: Performed By: #### U AMIC, UA #### [place] [address] UA Appear Clear Normal Clear [facility] ([place] Comment on above: Performed By: #### U AMIC, UA #### [place] [address] UA Blood Negative Normal Neg-Trace [facility] ([place] Comment on above: Performed By: #### U AMIC, UA #### [place] [address] UA Leuk Est Negative Normal Negative [facility] ([place] Comment on above: Performed By: #### U AMIC, UA #### [place] [address] UA Nitrite Negative Normal Negative [facility] ([place] Comment on above: Performed By: #### U AMIC, UA #### [place] [address] UA pH 6.0 Normal 5.0 - 8.0 [facility] ([place] Comment on above: Performed By: #### U AMIC, UA #### [place] [address] UA Protein Negative Normal Negative [facility] ([place] Comment on above: Performed By: #### U AMIC, UA #### [place] [address] UA Spec Grav 1.010 Normal 1.006-1.029 [facility] ([place] Comment on above: Performed By: #### U AMIC, UA #### [place] [address] UA Specimen Type Clean Catch Normal [facility] ([place] Comment on above: Performed By: #### U AMIC, UA #### [place] [address] UA Urobilinogen 0.2 E.U./dL Normal 0.2-1.0 [facility] ([place] Comment on above: Performed By: #### U AMIC, UA #### [facility] [address] [place] [address] Urobilinogen (U) [Mass/Vol] Negative Normal Neg-Trace [facility] ([place] Comment on above: Performed By: #### U AMIC, UA #### [facility] [address] [place] [address] UAMICon 07-20-2023 UA Amorphus Trace Normal [facility] ([place] Comment on above: Performed By: #### U AMIC, UA #### [facility] [address] [place] [address] UA RBC Negative Normal 0-2 [facility] ([place] Comment on above: Performed By: #### U AMIC, UA #### [facility] [address] [place] [address] UA Squam Epithelial Rare Normal 0-20 [facility] ([place]) Comment on above: Performed By: #### U AMIC, UA #### [place] [address] UA WBC Rare Normal 0-5 [facility] ([place] Comment on above: Performed By: #### U AMIC, UA #### [place] [address] LABORATORYOrdered By: Kasandra Alanis on 01-08-2023 Basophil, Absolute 0.1 103/mcL Invalid Interpretation Code 0.0 - 0.2 10^3/mcL AO Workflow SS Basophils/100 WBC (Bld) 0.6 % Invalid Interpretation Code 0.0 - 2.5 % AO Workflow SS Eosinophil, Absolute 0.2 103/mcL Invalid Interpretation Code 0.0 - 0.4 10^3/mcL AO Workflow SS Eosinophils/100 WBC (Bld) 2.1 % Invalid Interpretation Code 0.0 - 7.0 % AO Workflow SS Erythrocyte distribution width (RBC) [Ratio] 13.2 % Invalid Interpretation Code 11.5 - 14.5 % AO Workflow SS Hematocrit (Bld) [Volume fraction] 53.5 % Invalid Interpretation Code 42.0 - 52.0 % AO Workflow SS Hemoglobin (Bld) [Mass/Vol] 18.5 G/dL Invalid Interpretation Code 14.0 - 18.0 G/dL AO Workflow SS Lymphocyte, Absolute 1.8 103/mcL Invalid Interpretation Code 0.8 - 3.9 10^3/mcL AO Workflow SS Lymphocytes/100 WBC (Bld) 20.8 % Invalid Interpretation Code 10.0 - 50.0 % AO Workflow SS MCH (RBC) [Entitic mass] 31.7 pg Invalid Interpretation Code 27.0 - 31.2 pg AO Workflow SS MCHC 34.6 G/dL Invalid Interpretation Code 31.8 - 35.4 G/dL AO Workflow SS MCV (RBC) [Entitic vol] 91.5 fL Invalid Interpretation Code 80.0 - 94.0 fL AO Workflow SS Monocyte, Absolute 0.8 103/mcL Invalid Interpretation Code 0.2 - 1.0 10^3/mcL AO Workflow SS Monocytes/100 WBC (Bld) 8.8 % Invalid Interpretation Code 1.7 - 13.0 % AO Workflow SS Neutrophil, Absolute 5.9 103/mcL Invalid Interpretation Code 2.9 - 6.2 10^3/mcL AO Workflow SS Neutrophils/100 WBC (Bld) 67.7 % Invalid Interpretation Code 37.0 - 80.0 % AO Workflow SS Platelet mean volume (Bld) [Entitic vol] 8.0 fL Invalid Interpretation Code 7.4 - 10.4 fL AO Workflow SS Platelets (Bld) [#/Vol] 175 103/mcL Invalid Interpretation Code 130 - 400 10^3/mcL AO Workflow SS RBC (Bld) [#/Vol] 5.85 106/mcL Invalid Interpretation Code 4.04 - 6.13 10^6/mcL AO Workflow SS WBC (Bld) [#/Vol] 8.7 103/mcL Invalid Interpretation Code 4.6 - 10.8 10^3/mcL AO Workflow SS LABORATORYOrdered By: SYSTEM SYSTEM on 01-08-2023 Cobalamin (Vitamin B12) [Mass/Vol] 357 pg/mL Invalid Interpretation Code 211 - 911 pg/mL AH ADM SS Ferritin [Mass/Vol] 516.0 ng/mL Invalid Interpretation Code 26.0 - 388.0 ng/mL AO ADM SS Uric Acid Lvl 5.1 mg/dL Invalid Interpretation Code 3.5 - 7.2 mg/dL AO ADM SS LABORATORYOrdered By: Melecio Narvaez on 07-28-2022 Cholesterol [Mass/Vol] 201 mg/dL Invalid Interpretation Code 0 - 200 mg/dL AO ADM SS Cholesterol in HDL [Mass/Vol] 42 mg/dL Invalid Interpretation Code 40 - 60 mg/dL AO ADM SS Cholesterol in LDL [Mass/Vol] 127 mg/dL Invalid Interpretation Code 0 - 130 mg/dL AO ADM SS CRP [Mass/Vol] mg/dL Invalid Interpretation Code 0.0 - 0.9 mg/dL AO Chemistry S Ferritin [Mass/Vol] 545.0 ng/mL Invalid Interpretation Code 26.0 - 388.0 ng/mL AO ADM SS Hematocrit (Bld) [Volume fraction] 52.0 % Invalid Interpretation Code 42.0 - 52.0 % AO Workflow SS Hemoglobin (Bld) [Mass/Vol] 18.2 G/dL Invalid Interpretation Code 14.0 - 18.0 G/dL AO Workflow SS Iron binding capacity [Mass/Vol] 311 mcg/dL Invalid Interpretation Code 250 - 450 mcg/dL AO ADM SS Triglyceride [Mass/Vol] 162 mg/dL Invalid Interpretation Code 0 - 150 mg/dL AO ADM SS LABORATORYOrdered By: SYSTEM SYSTEM on 07-28-2022 Cobalamin (Vitamin B12) [Mass/Vol] 404 pg/mL Invalid Interpretation Code 211 - 911 pg/mL AH ADM SS LABORATORYOrdered By: Paty Bingham on 07-28-2022 ESR 15 minute reading (Bld) [Velocity] 12 mm/hr Invalid Interpretation Code 0 - 20 mm/hr AO Man Heme SS Natriuretic peptide.B prohormone N-Terminal [Mass/Vol] 13 pg/mL Invalid Interpretation Code 0 - 125 pg/mL AO ADM SS LABORATORYOrdered By: Paty Bingham on 05-19-2022 Albumin BCP dye [Mass/Vol] 4.8 G/dL Invalid Interpretation Code 3.4 - 4.8 G/dL AO ADM SS Albumin/Globulin [Mass ratio] 1.5 {ratio} Invalid Interpretation Code 1.1 - 2.5 ratio AO ADM SS ALP [Catalytic activity/Vol] 97 U/L Invalid Interpretation Code 40 - 135 U/L AO ADM SS ALT With P-5'-P [Catalytic activity/Vol] 19 U/L Invalid Interpretation Code 16 - 63 U/L AO ADM SS AST With P-5'-P [Catalytic activity/Vol] 17 U/L Invalid Interpretation Code 10 - 40 U/L AO ADM SS Bilirubin [Mass/Vol] 0.6 mg/dL Invalid Interpretation Code 0.2 - 1.0 mg/dL AO ADM SS Calcium [Mass/Vol] 9.6 mg/dL Invalid Interpretation Code 8.4 - 10.2 mg/dL AO ADM SS Chloride [Moles/Vol] 100 mmol/L Invalid Interpretation Code 98 - 107 mmol/L AO ADM SS Cholesterol [Mass/Vol] 197 mg/dL Invalid Interpretation Code 0 - 200 mg/dL AO ADM SS Cholesterol in HDL [Mass/Vol] 42 mg/dL Invalid Interpretation Code 40 - 60 mg/dL AO ADM SS Cholesterol in LDL [Mass/Vol] 130 mg/dL Invalid Interpretation Code 0 - 130 mg/dL AO ADM SS CO2 [Moles/Vol] 28 mmol/L Invalid Interpretation Code 23 - 31 mmol/L AO ADM SS Creatinine [Mass/Vol] 0.88 mg/dL Invalid Interpretation Code 0.70 - 1.30 mg/dL AO ADM SS Electrolyte Balance 11.0 mEq/L Invalid Interpretation Code 4.0 - 15.0 mEq/L AO ADM SS Globulin 3.3 G/dL Invalid Interpretation Code AO ADM SS Glucose [Mass/Vol] 111 mg/dL Invalid Interpretation Code 80 - 115 mg/dL AO ADM SS HbA1c (Bld) [Mass fraction] 5.5 % Invalid Interpretation Code 4.3 - 6.4 % AO ADM SS Potassium [Moles/Vol] 4.7 mmol/L Invalid Interpretation Code 3.5 - 5.1 mmol/L AO ADM SS Prostate specific Ag [Mass/Vol] 0.52 ng/mL Invalid Interpretation Code 0.00 - 4.00 ng/mL AO ADM SS Protein [Mass/Vol] 8.1 G/dL Invalid Interpretation Code 6.4 - 8.2 G/dL AO ADM SS Sodium [Moles/Vol] 139 mmol/L Invalid Interpretation Code 136 - 145 mmol/L AO ADM SS Triglyceride [Mass/Vol] 124 mg/dL Invalid Interpretation Code 0 - 150 mg/dL AO ADM SS TSH Qn 2.54 m[IU]/L Invalid Interpretation Code 0.36 - 3.74 mcIU/mL AO ADM SS Urea nitrogen [Mass/Vol] 9 mg/dL Invalid Interpretation Code 7 - 18 mg/dL AO ADM SS Urea nitrogen/Creatinine [Mass ratio] 10 ratio Invalid Interpretation Code 7 - 27 ratio AO ADM SS LABORATORYOrdered By: Kasandra Alanis on 05-19-2022 Basophil, Absolute 0.1 103/mcL Invalid Interpretation Code 0.0 - 0.2 10^3/mcL AO Workflow SS Basophils/100 WBC (Bld) 0.8 % Invalid Interpretation Code 0.0 - 2.5 % AO Workflow SS Eosinophil, Absolute 0.1 103/mcL Invalid Interpretation Code 0.0 - 0.4 10^3/mcL AO Workflow SS Eosinophils/100 WBC (Bld) 1.3 % Invalid Interpretation Code 0.0 - 7.0 % AO Workflow SS Erythrocyte distribution width (RBC) [Ratio] 13.2 % Invalid Interpretation Code 11.5 - 14.5 % AO Workflow SS Hematocrit (Bld) [Volume fraction] 53.4 % Invalid Interpretation Code 42.0 - 52.0 % AO Workflow SS Hemoglobin (Bld) [Mass/Vol] 18.4 G/dL Invalid Interpretation Code 14.0 - 18.0 G/dL AO Workflow SS Lymphocyte, Absolute 1.8 103/mcL Invalid Interpretation Code 0.8 - 3.9 10^3/mcL AO Workflow SS Lymphocytes/100 WBC (Bld) 15.8 % Invalid Interpretation Code 10.0 - 50.0 % AO Workflow SS MCH (RBC) [Entitic mass] 31.7 pg Invalid Interpretation Code 27.0 - 31.2 pg AO Workflow SS MCHC 34.4 G/dL Invalid Interpretation Code 31.8 - 35.4 G/dL AO Workflow SS MCV (RBC) [Entitic vol] 92.1 fL Invalid Interpretation Code 80.0 - 94.0 fL AO Workflow SS Monocyte, Absolute 0.8 103/mcL Invalid Interpretation Code 0.2 - 1.0 10^3/mcL AO Workflow SS Monocytes/100 WBC (Bld) 7.2 % Invalid Interpretation Code 1.7 - 13.0 % AO Workflow SS Neutrophil, Absolute 8.3 103/mcL Invalid Interpretation Code 2.9 - 6.2 10^3/mcL AO Workflow SS Neutrophils/100 WBC (Bld) 74.9 % Invalid Interpretation Code 37.0 - 80.0 % AO Workflow SS Platelet mean volume (Bld) [Entitic vol] 7.7 fL Invalid Interpretation Code 7.4 - 10.4 fL AO Workflow SS Platelets (Bld) [#/Vol] 173 103/mcL Invalid Interpretation Code 130 - 400 10^3/mcL AO Workflow SS RBC (Bld) [#/Vol] 5.79 106/mcL Invalid Interpretation Code 4.04 - 6.13 10^6/mcL AO Workflow SS WBC 11.1 103/mcL Invalid Interpretation Code 4.6 - 10.8 10^3/mcL AO Workflow SS LABORATORYOrdered By: SYSTEM SYSTEM on 05-19-2022 GFR 106 ml/min/1.73sqm Invalid Interpretation Code AO Chemistry S GFR Non- 87 ml/min/1.73sqm Invalid Interpretation Code AO Chemistry S Monocyte distribution width Auto (Bld) [Entitic vol] Not Performed 1 *NA* (05/19/22 9:19 AM) Invalid Interpretation Code 0.00 - 20.00 AO Hematology S Comment on above: Result Comment: MDW testing performed only on adult ER patients between the ages of 18-89 years. Hemogramon 01-13-2018 Erythrocyte distribution width Auto Ratio (RBC) 13.2 % Normal 11.5-14.5 [facility] Comment on above: Performed By: #### H EMOG ####The performing lab is in the report. Erythrocytes (RBC) 5.55 10*6/uL Normal 4.40-5.90 [facility] Comment on above: Performed By: #### H EMOG ####The performing lab is in the report. Hematocrit (HCT) 50.5 % Normal 40.0-52.0 [facility] Comment on above: Performed By: #### H EMOG ####The performing lab is in the report. Hemoglobin mass conc (Bld) 17.5 g/dL Normal 13.0-18.0 [facility] Comment on above: Performed By: #### H EMOG ####The performing lab is in the report. MCH 31.6 pg Normal 26.0-34.0 [facility] Comment on above: Performed By: #### H EMOG ####The performing lab is in the report. MCHC mass conc (RBC) 34.7 % Normal 32.0-36.0 [facility] Comment on above: Performed By: #### H EMOG ####The performing lab is in the report. MCV 90.9 fL Normal 80.0-98.0 [facility] Comment on above: Performed By: #### H EMOG ####The performing lab is in the report. Platelet mean volume (PMV) 7.7 fL Normal 7.4-10.4 [facility] Comment on above: Performed By: #### H EMOG ####The performing lab is in the report. Platelets 162 10*3/uL Normal 140-440 [facility] Comment on above: Performed By: #### H EMOG ####The performing lab is in the report. WBC (Leukocytes) 8.1 10*3/uL Normal 3.6-10.7 [facility] Comment on above: Performed By: #### H EMOG ####The performing lab is in the report. Vital Signs Date Time Vital Sign Value Performing Clinician Faci lity 04-04-2025 15:08-0400 Body temperature 97.6 [degF] Dr. Jeannette Galicia DO Work Phone: [facility] 04-04-2025 15:08-0400 Diastolic blood pressure 80 mm[Hg] Dr. Jeannette Galicia DO Work Phone: [facility] 04-04-2025 15:08-0400 Heart rate 74 /min Dr. Jeannette Galicia DO Work Phone: [facility] 04-04-2025 15:08-0400 Inhaled oxygen flow rate 4 L/min Dr. Jeannette Galicia DO Work Phone: [facility] 04-04-2025 15:08-0400 Respiratory rate 16 /min Dr. Jeannette Galicia DO Work Phone: [facility] 04-04-2025 15:08-0400 SaO2% (BldA) [Mass fraction] 98 % Dr. Jeannette Galicia DO Work Phone: [facility] 04-04-2025 15:08-0400 Systolic blood pressure 170 mm[Hg] Dr. Jeannette Galicia DO Work Phone: [facility] 04-04-2025 11:08-0400 Body height 165.[address] Jeannette Galicia DO Work Phone: [facility] 04-04-2025 11:08-0400 Body mass index (BMI) [Ratio] 26.6 kg/m2 Dr. Jeannette Galicia DO Work Phone: [facility] 04-04-2025 11:08-0400 Body weight 72.[address] Jeannette Galicia DO Work Phone: [facility] 03-02-2025 09:27-0400 Body height 165.[address] Jeannette Galicia DO Work Phone: [facility] 03-02-2025 09:27-0400 Body mass index (BMI) [Ratio] 27.3 kg/m2 Dr. Jeannette Galicia DO Work Phone: [facility] 03-02-2025 09:27-0400 Body weight 74.[address] Jeannette Galicia DO Work Phone: [facility] Encounters Encounter Date Encounter Type Care Provider Facility Start: 04-04-2025 Non-patient / Non-visit Dr. Dwayne alvarado MD -[facility] Start: 04-04-2025 Encounter for other preprocedural examination [facility] Start: 04-04-2025 End: 04-04-2025 Admission to same day surgery center Dr. Dwayne Feliciano MD -[facility] Start: 04-04-2025 End: 04-04-2025 ambulatory [facility] Facility:[facility] Start: 03-29-2025 End: 03-29-2025 ambulatory Michael Rangel Facility:[facility] Start: 03-29-2025 End: 03-29-2025 Non-patient / Non-visit Dr. Michael Rangel MD -[facility] Work Phone: Start: 03-29-2025 End: 03-29-[address] Dwayne Feliciano MD -[facility] Work Phone: Start: 03-29-2025 End: 03-29-[address] Jeannette Galicia DO Work Phone: [facility] Work Phone: Start: 03-02-2025 End: 03-02-[address] Alan Ivey MD -[facility] Start: 03-02-2025 End: 03-02-[address] Jeannette Galicia DO Work Phone: [facility] Work Phone: Start: 02-26-[address] JEANNETTE GALICIA DO Fa cility:[facility] Start: 02-20-[address] JEANNETTE GALICIA DO Fa cility:[facility] Start: 02-14-2025 End: 02-14-[address] JEANNETTE GALICIA DO Facility:[facility] Start: 02-14-2025 End: 02-14-[address] JENANETTE GALICIA DO [facility] Start: 02-06-2025 ambulatory Isra Bunn Facility: [facility] Start: 02-06-2025 Non-patient / Non-visit Dr. Valentino peralta MD -[facility] Start: 02-06-2025 End: 02-06-[address] Jeannette Galicia DO Work Phone: [facility] Work Phone: Start: 02-06-2025 End: 02-06-[address] Isra Carrero MD -Pulmonary Services/Neurology Work Phone: Start: 02-06-2025 End: 02-06-2025 ambulatory Isra Carrero Facility:[facility] Start: 01-31-2025 End: 01-31-[address] JEANNETTE GALICIA DO Facility:A Start: 08-25-2024 End: 08-29-[address] JEANNETTE GALICIA DO Facility:A Start: 08-25-2024 End: 08-25-[address] JEANNETTE GALICIA DO Facility:A Start: 08-25-2024 End: 08-25-2024 Patient encounter procedure EFFIE SOMMER APRN-[employer] [facility] Start: 05-22-2024 End: 05-22-2024 ambulatory DARION LEONE MD Facility:A Start: 05-22-2024 End: 05-22-2024 Patient encounter procedure DARION LEONE MD [facility] Start: 05-16-2024 End: 05-16-2024 ambulatory DARION LEONE MD Facility:A Start: 03-24-2024 End: 03-24-2024 ambulatory 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[employer] Facility:B Start: 03-20-2024 End: 03-20-2024 ambulatory 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[employer] Facility:A Start: 03-20-2024 End: 03-20-2024 Patient encounter procedure 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[employer] [facility] Start: 01-21-2024 End: 01-25-2024 ambulatory 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[employer] Facility:A Start: 01-21-2024 End: 01-21-2024 ambulatory 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[employer] Facility:A Start: 01-14-2024 End: 01-14-[address] JEANNETTE GALICIA DO Facility:B Start: 01-14-2024 End: 01-14-[address] JEANNETTE GALICIA DO [facility] Start: 07-21-2023 End: 07-21-2023 ambulatory 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 Start: 01-08-2023 End: 01-08-[address] JEANNETTE GALICIA DO [facility] Start: 12-29-2022 End: 12-29-[address] JEANNETTE GALICIA DO [facility] Start: 07-29-2022 End: 07-29-[address] JO BOWERS MD [facility] Start: 07-28-2022 End: 07-28-[address] JO BOWERS MD [facility] Start: 06-09-2022 End: 06-09-[address] JEANNETTE GALICIA DO [facility] Start: 06-08-2022 End: 06-08-[address] JEANNETTE GALICIA DO [facility] Start: 05-19-2022 End: 05-19-[address] JEANNETTE GALICIA DO [facility] Start: 02-27-2022 End: 02-27-2022 Patient encounter procedure [facility] Start: 01-20-2018 Ambulatory [facility] Start: 01-13-2018 Ambulatory [facility] Start: 01-06-2018 [facility] Start: 12-30-2017 [facility] Procedures Date Procedure Procedure Detail Performing Clinician Start: 04-04-2025 Fluoroscopic guidance Leslie Galicia DO Work Phone: Start: 04-04-2025 Surgical procedure o n cervical spine Dr. Jeannette Galicia DO Work Phone: Start: 03-29-2025 Methicillin resistan t Staphylococcus aureus screening test Dr. Jeannette Galicia DO Work Phone: Start: 03-29-2025 Hepatitis A virus an tibody, total measurement Dr. Jeannette Galicia DO Work Phone: Comment on above: Comment: The HAV tot al antibody assay detects both IgG andIgM but does not differentiate between them. A negativeresult suggests susceptibility to infection. A positiveresult could be due to vaccination, previously resolvedinfection or active infection. Testing for HAV IgM shouldbe performed if active HAV infection is suspected. [facility] profiles that will automatically reflex positive HAVtotal antibody results to IgM (e.g., panel #[id number] HAVAntibody w/ Rfx).Performed at: [address] [id number] Director: Homero Moore PhD, Phone: [phone] Start: 03-29-2025 Hepatitis C antibody measurement Dr. Jeannette Galicia DO Work Phone: Comment on above: Reactive: Presumptiv e evidence of antibodies to HCV. Follow CDC recommendations for supplemental testing.Non-Reactive: Antibodies to HCV were not detected; does not exclude the possibility of exposure to HCVReactive Results are presumptive evidence of antibodies to HCV. Follow CDC recommendations for supplemental testing.Order confirmation testing: HCV Quant by PCR testing - HCVPCR #[id number] Non Reactive: < 0.8 Equivocal: >/= 0.8 to < 1.0 Reactive: >/= 1.0The CDC requires that a reactive/equivocal HCV antibody result be sent out for confirmation. HCV Quant by PCR testing. Start: 03-02-2025 X-ray of cervical spine Dr. Jeannette Galicia DO Work Phone: Start: 03-02-2025 X-ray of lumbosacral spine Dr. Jeannette Galicia DO Work Phone: Start: 07-29-2022 Cardiovascular stres s test using pharmacologic stress agent DR JEANNETTE GALICIA DO Comment on above: IMPRESSION: 1. No evidence of ischemia. 2. No evidence for infarction. 3. Normal LV size and function. 4. No previous for comparison. Start: 07-29-[address] DEANNA GALICIA DO Comment on above: (07/29/22) Summary: 1. Left ventricle: The cavity size is normal. Wall thickness is normal. Strain Value is Normal Systolic function is normal. The estimated ejection fraction is 60-65%. Wall motion is normal; there are no regional wall motion abnormalities. Normal diastolic function. 2. Right ventricle: The RV systolic pressure by Doppler is 28 mm Hg. 3. Right atrium: The estimated right atrial pressure is 3 mm Hg. 4. Atrial septum: Agitated saline shows no shunt. Start: 07-16-2022 Electrocardiographic monitor and recorder, device (physical object) DR JEANNETTE GALICIA DO Comment on above: Total 2 recordings a ll were asymptomatic Baseline rhythm recorded is sinus rhythm with average ventricular rate [66] bpm, Minimal ventricular rate [50] bmp, Maximal ventricular rate [120] bmp Occasional PVCs 4% burden and PACs less then 1% burden were recorded No other tachy- or daryl- arrhythmia was recorded No symptoms were reported Impression: PVCs 4% burden Start: 06-09-2022 Doppler ultrasonogra phy of bilateral carotid arteries DR JO BOWERS MD Comment on above: Summary: 1. Mild 1-39% stenosis of the right internal carotid artery. 2. Mild 1-39% stenosis of the left internal carotid artery. Start: 02-27-2022 CT of face Anal fissure and fis benita (disorder) DARION LEONE MD Cystoscopy DARION LEONE MD Plan of Treatment Date Care Activity Detail Author Start: 06-18-2025 Patient discharge [facility] Start: 04-04-2025 X-ray of cervical spine Cerv Spine 2 or 3 Views [facility] Start: 04-04-2025 XR Cervical spine 2 or 3 Views [facility] Start: 03-02-2025 X-ray of cervical spine Cerv Spine 2 or 3 Views [facility] Start: 03-02-2025 X-ray of lumbosacral spine L/S Spine Min 4 Views [facility] Start: 03-02-2025 XR Cervical spine 2 or 3 Views [facility] Start: 03-02-2025 XR Spine Lumbar and Sacrum GE 4 Views [facility] Electrocardiographic procedure [facility] Patient Education Cervical Disk Surg Dc [facility] Work Phone: Patient referral [facility] Work Phone: Immunizations Immunization Date Immunization Notes Care Provider Fa cili 01-30-2021 SARS-CoV-2 (COVID-19 ) mRNA-[address] JEANNETTE GALICIA DO [facility] Comment on above: Result Comment: 2024: [id number] 01-02-2021 SARS-CoV-2 (COVID-19 ) mRNA-[address] JEANNETTE GALICIA DO [facility] Comment on above: Result Comment: 2024: [id number] Payers Date Payer Category Payer Unknown 2025 Self-pay [id number] 2024 Unknown [id number] 2023 Medicare [id number] 2023 Medicare [id number] 1960 Unknown [id number] 2.16.8 40.1.872037.3.579.2.627 1960 Unknown [id number] 2.16.8 40.1.797136.3.579.2.627 1960 Unknown [id number] 2.16.8 40.1.499482.3.579.2. 1960 Unknown [id number] 2.16.8 40.1.201581.3.579.2. 1960 Unknown [id number] 2.16.8 40.1.049735.3.579.2. 1960 Unknown [id number] 2.16.8 40.1.167351.3.579.2. 1960 Unknown [id number] 2.16.8 40.1.188196.3.579.2. 1960 Unknown [id number] 2.16.8 40.1.676397.3.579.2. 1960 Unknown [id number] 2.16.8 40.1.273835.3.579.2. 1960 Unknown [id number] 2.16.8 40.1.331808.3.579.2. 1960 Unknown [id number] 2.16.8 40.1.678758.3.579.2. 1960 Unknown [id number] 2.16.8 40.1.011695.3.579.2. 1960 Unknown [id number] 2.16.8 40.1.693241.3.579.2. 1960 Unknown [id number] 2.16.8 40.1.767030.3.579.2. 1960 Unknown [id number] 2.16.8 40.1.707994.3.579.2. 1960 Unknown [id number] 2.16.8 40.1.940177.3.579.2. 1960 Unknown [id number] 2.16.8 40.1.859228.3.579.2. 1960 Unknown [id number] 2.16.8 40.1.329959.3.579.2.627 Unknown [id number] Unknown [id number] 2.16.8 40.1.941897.3.579.2.462 Unknown [id number] 2.16.8 40.1.464058.3.579.2.462 Unknown [id number] 2.16.8 40.1.916216.3.579.2.462 Unknown [id number] 2.16.8 40.1.817803.3.579.2.462 Unknown [id number] 2.16.8 40.1.617202.3.579.2.462 Unknown [id number] 2.16.8 40.1.049315.3.579.2.462 Unknown [id number] 2.16.8 40.1.701317.3.579.2.462 Social History Date Type Detail Facility [facility] Work Phone: Start: 1960 Sex Assigned At Male [facility] Tobacco Nicotine Use: khan d stopped smoking and now smoking again here and there. Started at age: 16 Years. Stopped at age: 41 Years. [facility] Tobacco smoking status Ex-smoker (finding ) [facility] Start: 11-12-2022 Tobacco smoking status Heavy t obacco smoker (finding) [facility] Comment on above: had stopped smoking in the past [facility] Work Phone: Start: 12-13-2019 End: 02-12-2025 Sex Male (finding) [facility] Sexual Orientation [facility] Start: 03-02-2025 End: 03-21-2025 Tobacco smoking status NHIS Smokes tobacco daily (finding) [facility] Goals Date Patient Goal Desired Activity /State Mental Status Date Assessment Result Facility 04-04-2025 Cognitive function Voice/Name [facility] Work Phone: Clinical Notes 05-19-2022 to 04-04-2025 Note Date & Type Note Facility 04-04-2025 Consult note Note Date/Time April 04, 2025 2:42 pm [facility] Medical Records Department [address] [place] [address] Anesthesia Postop Eval I 04/04/25 1441 MR#: [id number] Acct: [id number] Name: IVETTE GONZÁLES Rep #:[id number] : 1960 64 From: Syed Ordonez V[employer] COUNSELOR PCP: Dr. Jeannette Galicia, DO Status:REG S DC Y Race: C Location: [place] [address] Anesthesia: Postop Eval I Current Vital Signs Temperature: 97.2 F Pulse Rate: 85 Blood Pressure: 172/86 Respiratory Rate: 18 Pulse Ox: 97 Oxygen Delivery Method: Nasal Cannula Oxygen Flow Rate (L/min): 4 Assessment Airway patent: Yes Spontaneous unlabored respirations: Yes Mental status: Awake and Calm nausea: No Vomiting: No Anesthesia Complication: No Fluid Hydration Crystalloid volume administer (ml): 1,000 Total IV fluid infused: 1,000 Progress Note Post-operative progress note: See PACU notes for details VSS Anesthesia document: Postop Eval 1 completed: Yes 04/04/251441 <Electronically signed by Syed Sanchez II, CRNA> Date _ Syed Sanchez II, CRNA Cosigner Signature: Date CC: ~ Signed [facility] Work Phone: 1(433) 722-121206-18-2025 Consult note [facility] Medical Records Department [address] [place] [address] Anesthesia Postop Eval II 04/04/25 1634 MR#: [id number] Acct: [id number] Name: IVETTE GONZÁLES Rep #:[id number] : 1960 64 From: Eva Patel V[employer] COUNSELOR PCP: Dr. Jeannette Galicia, DO Status:REG S DC Y Race: C Location: [address] Anesthesia Postop Eval I Sum Postop Eval Completion status Anesthesia document: Postop Eval 1 completed: Yes Anesthesia Postop Eval I Summary Anesthesia Postop Eval I Summary: Anesthesia Postop Eval I: Assessment Summary Airway patent Yes 04/04/25 14:42 V[employer]ER[employer] COUN[employer].DBAK Spontaneous unlabored Yes 04/04/25 14:42 [employer].DBAK respirations Mental status Awake,Calm 04/04/25 14:42 [employer].DBAK nausea No 04/04/25 14:42 [employer] COUN[employer].DBAK Vomiting No 04/04/25 14:42 [employer].DBAK Anesthesia Postop Eval I: Fluid Summary Crystalloid volume administer 1,000 04/04/25 14:42 V[employer] COUNSELOR.DBAK (ml) Colloids volume administered ( ml) Blood Product volume administered (ml) Total IV fluid infused 1,000 04/04/25 14:42 V[employer]ERANS[employer] COUNSEL[employer].DBAK Anesthesia Postop Eval I: Summary Notes Anesthesia Complication No 04/04/25 14:42 V[employer]ER[employer] COUN[employer]OR.DBAK Anesthesia Complication Comment: Post-operative progress note See PACU notes for 04/04/25 14:42 V[employer] COUNSEL[employer].DBAK details VSS Anesthesia: Postop Eval II Evaluation Mental status: Awake Pain Level: 3 nausea: No Vomiting: No 04/04/25 1634 a V[employer] COUNSELOR> Date _ Eva Patel V[employer]ER[employer]' COUNSELOR Cosigner Signature: Date CC: ~ Signed [facility]06-18-2025 History and physical note [facility] Medical Records Department [address] [place] [address] History & Physical Exam 04/04/25 1136 MR#: [id number] Acct: [id number] Name: IVETTE GONZÁLES Rep #:[id number] : 1960 64 From: Dwayne Feliciano MD PCP: Dr. Jeannette Galicia, DO Status:REG S DC Location: [place] [address]1 History and Physical MR#: [id number] Acct: [id number] Name: IVETTE GONZÁLES Rep #: [id number] : 1960 Provider: Dr. Dwayne Feliciano MD Age/Sex: 64/M Location: [facility] [place].[facility] Status: Signed Intake Vital Signs 03/02/2509:27 Height 5 ft 5 in Weight: 164 lb 4 oz BMI 27.3 Intake Visit Reasons: cervical spine Chief Complaint: pre op Accompanied by: Allergies codeine Adverse Reaction (Intermediate, Verified 03/29/25 08:04) Abd cramps/diarrheamorphine Adverse Reaction (Verified 03/29/25 08:04) Upset Stomach Medications ?Medication ?Instructions ?Recorded ?Confirmed ?Type gabapentin 300 mg capsule 300 mg PO TID 03/02/25 03/29/25 History rosuvastatin 10 mg tablet 10 mg PO QHS 03/02/25 03/29/25 History Held on 03/21/25. Instructions: pt refused to take this at this time Have you fallen in the past year?: No PFS Medical History (Updated 03/29/25 @ 11:38 by Sunita Kelley) Wears glasses Wears dentures Marijuana use Abrasion High cholesterol Loss of consciousness Migraine headache Syncope Smoker Shortness of breath on exertion Surgical History Hx of colonoscopy History of anal fissures Family History Mother CAD (coronary artery disease)Brother CAD (coronary artery disease) Social History household members: spouse Smoking Status: Current every day smoker tobacco type: cigarettes alcohol intake: current alcohol intake frequency: holidays/special occasions only HPI cervical spine Details: This documentation accurately reflects the service provided and the decisions made by me, Dr. Dwayne Feliciano MD 03/29/25 0758. Part of today?s visit was documented by Teresa FINCH, acting as scribe. IVETTE GONZÁLES is a 64 year old M here today for pre-op cervical spine, dos: 04/04/25. He has had worsening radicular pain and patch of numbness in the left forearm, along with right-sided symptoms that persist. He also has worsening balance and continues to have lower back issues as well. 03/02/25: IVETTE GONZÁLES is a 64 year old M here today for cervical and lumbar spine pain. Patient states the neck and back have been bothering him for quite awhile. He states he saw Dr. Isra Carreroand he didn't know if it was all coming from the back and he was told he had bursitis in the hip. He decided to try physical therapy and over time it progressively gotten worse to the point where he couldn't walk very far without having to stop. He states he had an MRI of the lumbar spine and foundsome disc issues. He then had an MRI of the neck and he found some disc issues in the neck as well.Patient is currently in physical therapy right now. He does have some musculature soreness and willget more pain now while he is in PT. He states he does not have any pain in the neckunless he sleeps weird. He states his thumb, index and middle finger in the right hand gets numb and he gets radiating pain up the forearm into the elbow. Occasionally he will get the radiating pain all the way up the arm into the shoulder. He did have an EMG in January and was told the issues were coming from his neck, he does not have carpal tunnel. He states he is unable to sleep comfortably. The lumbar spine pain is over the left lumbar spine down the buttocks and into the posterior hamstring. He denies any pain into the right leg. He states when he walks the left leg feels like it locks up. He states he will get numbness in the anterior aspect of the left thigh. He denies any injections in the cervical or lumbar spine. He was prescribed gabapentin by Dr. Dhaliwal. He is seeing Dr. Whitaker next week for pain management. He does not havetrouble writing, holding or dropping objects. He denies any issues with his balance when he walks and no recent falls. He does not have a history of heart problems, lung problems, diabetes or stroke. He does not take any blood thinners. He did have a test that wxaeny08% blockage of his right carotid and started him on a statin for this. He is a smoker and smokes one pack per day. Heis scheduled to be evaluated by Dr. Whitaker in pain management next week. Ortho Exam General General: Yes no acute distress Neurologic: Yes alert Psychologic: Yes reasonable and appropriate Spine SPINE TESTING CERVICAL THORACIC LUMBAR Musculoskeletal Strength 0=absent - 5=normal Details: Exertion neck shows midline right paraspinal tenderness, lower back shows midline left paraspinal tenderness neurologic motion of upper and lower extremities is 5 x 5 power normal shows normal sensations in all dermatomes withHoffmann's negative. Romberg's is positive. Tandem gait shows mild imbalan ce. Reflexes are brisk. There is no clonus. Coding Level of Care Code Off vis,est,level 4 Diagnoses Cervical myelopathy with cervical radiculopathy G95.9; M54.12 Spinal stenosis of lumbar region with neurogenic claudication M48.062 Spondylolisthesis, lumbar region M43.16 Time Spent (min) 35 Assessment and Plan Assessment and Plan (1) Cervical myelopathy with cervical radiculopathy: Status: Acute (2) Spinal stenosis of lumbar region with neurogenic claudication: Status: Acute (3) Spondylolisthesis, lumbar region: Status: Acute Plan Again reviewed pt's cervical and lumbar x-ray in detail with patient and his . X-rays and MRI of the cervical spine show multilevel disc degeneration with C5-6 central disc herniation with cord compression with bilateral foraminalstenosis. C4-5 shows mild disc bulge without any cord compression. No cord signal changes seen. Lower back shows L4-5 subtle spondylolisthesis on flexion view which reduces in extension. MRI shows multilevel disc degeneration with severe central stenosis L4-5 and left-sided lateral recess stenosis from L4-S1. Again explained imaging findings in detail. Explained that cervical spinal cordcompression with take priority of the lower back pathology. The cervical MRI shows compression, I discussed this in detail with patient and his . This would require decompression surgically, as cervical myelopathy typically has a progressive natural history. Disc replacement versus fusion were discussed in detail. Patient has a smoking history and is a single level pathology without significant facet arthrosis. Irecommend C5-6 disc replacement. We discussed risks, benefits, and alternatives to this. At this time I recommend that we proceed with surgery for the cervical spine. We discussed the restrictions that he would have after surgery. We also discussed that he will likely have trouble swallowing for the first few weeks after surgery. For his lower back, recommendcontinued nonoperative measures versussurgery. I recommend that he receive injections with pain management for his lumbar spine. He is a smoker and we discussed smoking cessation and how smoking can affect healing after surgery. Discussed in detail the risk benefits and alternatives of the cervical spine surgery. The risks include but are not limited to infection, bleeding, injury to nerves and vessels, hematoma formation, need for further surgery, dysphagia, dysphonia, visceral injury, Ayesha syndrome, recurrent laryngealnerve injury, persistent pain, persistent numbness and weakness, spinal cord injury, nerve root injury, persistent malposition, adjacent segment degeneration, DVT, pulm embolism, pneumonia, atelectasis, cardiopulmonary event. Patient understands and agrees to proceed with surgery. Consent was signed. 04/04/25 1136 Cosigner Signature (if applicable): CC: Dr. Jeannette Galicia DO; Dr. Dwayne Feliciano MD~ Signed [facility]06-18-2025 Consult note [facility] Medical Records Department [address] [place] [address] Anesthesia Postop Eval I 04/04/25 1441 MR#: [id number] Acct: [id number] Name: IVETTE GONZÁLES Rep #:[id number] : 1960 64 From: Syed Ordonez V[employer]ERANS' COUNSELOR PCP: Dr. Jeannette Galicia DO Status:REG S DC Y Race: C Location: [place] [address] Anesthesia: Postop Eval I Current Vital Signs Temperature: 97.2 F Pulse Rate: 85 Blood Pressure: 172/86 Respiratory Rate: 18 Pulse Ox: 97 Oxygen Delivery Method: Nasal Cannula Oxygen Flow Rate (L/min): 4 Assessment Airway patent: Yes Spontaneous unlabored respirations: Yes Mental status: Awake and Calm nausea: No Vomiting: No Anesthesia Complication: No Fluid Hydration Crystalloid volume administer (ml): 1,000 Total IV fluid infused: 1,000 Progress Note Post-operative progress note: See PACU notes for details VSS Anesthesia document: Postop Eval 1 completed: Yes 04/04/25 1442 II V[employer]ER[employer] COUNSELOR> Date _ Syed Sanchez II VETERANS' COUNSELOR Cosigner Signature: Date CC: ~ Signed [facility]06-18-2025 Procedure note [facility] Medical Records Department [address] [place] [address] Operative Report 04/04/25 1431 MR#: [id number] Acct: [id number] Name: IVETTE GONZÁLES Rep #:[id number] : 1960 64 From: Dwayne Feliciano MD PCP: Dr. Jeannette Galicia, DO Status:REG S DC Location: [place] [address]1 Procedures Musculoskeletal 20xxx-29xxx: Other Procedure See Report Operative Report (Standard) Operative Information Date of Procedure: 04/04/25 Pre-Operative Diagnosis: C5-6 disc herniation, cord compression, myelopathy withradiculopathy Post-Operative Diagnosis: Same Surgery/Procedure Performed: C5-6 disc replacement injection wax molder: Yes [employer]ilingual [employer] Representative: Shannon Hernandez Tasks completed by expanded function dental assistant: Closing, Removing tissue, Hemostasis: Electrocautery and Retracting Type of Anesthesia: General RN Documented Start/Stop Times: Operation Date: 04/04/25 12:15 Case Time Into Pre-Op 04/04/25 10:41 Out of Pre-Op 04/04/25 12:21 Anesthesia Start 04/04/25 12:30 Into Room 04/04/25 12:30 Procedure Start 04/04/25 13:02 Procedure End 04/04/25 14:17 Anesthesia End 04/04/25 14:24 Out of Room 04/04/25 14:24 Into Recovery 04/04/25 14:30 Procedure Start Time: 13:02 Procedure Stop Time: 14:17 Select all DRAINS/GRAFTS/IMPLANTS that apply: Prosthetic device Prosthetic device details: ZimVie Mobi-C cervical disc replacement prosthesis Estimated Blood Loss: 20 cc Specimen collected: No Description of surgery: Preoperative diagnosis: C5-6 disc herniation with cord compression, with radiculomyelopathy Postoperative diagnosis: Same Name of procedure: C5-6 anterior cervical disc replacement - Cervical disc replacement C5-6, CPT code 50012 Attending surgeon: Dwayne Feliciano M.D. Anesthesia: Gen. endotracheal Estimated blood loss: 20 mL Complications: None Instrumentation used: Jaimee Biomet Mobi-C cervical disc replacement implants Indications: The patient is a pleasant 64-year-old gentleman who presented with symptoms of neck pain, progressive right upper extremity radiation, worsening difficulty with dexterity and balance. MRI revealed C5-6 central disc herniationwith cord compression without cord signal changes. In order to halt the progression of myelopathy, patient requested surgical intervention. All risks and benefits of the procedure were explained to the patient. The risks include but are not limited to infection, bleeding, injury to nerves and vessels, vertebral artery injury, spinal cord injury, paralysis, vocal cord paralysis, injuryto esophagus, need for further procedures, adjacent segment degeneration, heterotopic ossification, implant loosening, implant failure, DVT, pulmonary embolism, cardiopulmonary event, etc. Procedure: The patient was identified in the preoperative suite using unique patient identifiers. Skin was marked consent was taken and all questions were answered. The patient was then brought back to the operative room and a timeout was performed. General endotracheal anesthesia was given. Intraoperative neuro monitoring leads were applied. The patient was carefully positioned supine on a regular OR table. A lateral x-ray with a C-arm was done to identify the level and to define the incision. The anterior neck was then prepped and draped in theusual fashion. A final timeout was then performed. A transverse skin incision was then taken to the left of midline 2 fingerbreadths above the clavicle. Subcutaneous tissue was then divided with Bovie. Platysma was identified and cuttransversely with scissors. The fascial interval between the sternocle idomastoidand the larynx was developed. Omohyoid was identified and mobilized medially andinferiorly. Carotid sheath was laterally while the esophagus with the larynx wasretracted medially to reach the prevertebral fascia. All prevertebral layers of fascia were bluntly dissected and a [place] pin was placed into one of the bodies. A lateral C-arm image was used to confirm the correct level. Once this was done longus coli muscle was elevated on both sides at and above and below C5-6 disc. Shadow line retractors were then placed with great care to protect the esophagus. A long handle knife was then used to perform annulotomy at C5-6. Discfragments were removed with the pituitary. [place] pins were placed in C5 and C6 for disc distraction. AP view confirmed midline placement of [place] pins. Curettes were utilized to remove cartilage from the endplates. Discectomy was performed laterally up to the uncovertebral joints. Adequate decompression was performed, PLL was thinned out and partially resected. Foramina were decompressed without taking down the uncovertebral processes. Once the disc space was prepared, trials of various sizes were utilized. Thorough irrigation was given. Mobi-C anterior cervical disc replacem ent implant of size 17 x 17 mm with 5 mm height was then placed under fluoroscopic guidance. Adequate positioning was noticed on AP and lateral views. Thorough irrigation was again given. Hemostasis was achieved with FloSeal and bipolar cautery. Closure was done with 3-0 Vicryl for the platysma and subcutaneous tissue layers and 4-0 Monocryl for the skin. Steri-Strips were applied and dressing was done with 4 x 4 gauze and Tegaderm. A cervical collar was then applied. The patient was then woken up from anesthesia extubated and taken to PACU in stable condition. Intraoperative neuro monitoring was performed throughout this procedure. Motor evoked potentials were run periodically. All potentials remained at baseline throughout the procedure. I was present forthe entire surgery and performed thesurgery myself. [employer] Shannon Hernandez PA-C. My physician music assistant was a vital part of this case. They were important in appropriate retraction during the case, and protection of soft tissues during the procedure.Their intimate knowledge of thecase and my steps aided in safe and expedient completion of the procedure as well as appropriate position of the patient during the surgery. They were also vital in assisting with closure under my direct supervision. Surgical Findings: See operative note Complications Complications: No 04/04/25 1437 Cosigner Signature (if applicable): CC: Dr. Jeannette Galicia DO; Dr. Dwayne Feliciano MD~ Signed [facility]06-18-2025 Consult note Author Ez Turner [facility] Note Date/Time April 04, 2025 12:2 7pm [facility] Medical Records Department [address] [place] [address] Pre-Anesthesia Evaluation 04/04/25 1215 MR#: [id number] Acct: [id number] Name: IVETTE GONZÁLES Rep #:[id number] : 1960 64 From: Ez Turner MD PCP: Dr. Jeannette Galicia DO Status:REG S DC Y Race: C Location: [place] [address] ASA Classification* ASA Classification ASA Classification: 3 Assessment & Plan Anesthesia* Anesthesia Assessment Anesthesia Assessment: Discussed sedation and/or anesthesia options, risks, benefits, and alternatives with patient/parents/legal guardian/POA. Questions invited. The patient/parents/legal guardian/POA seems to understand and agrees to proceedwith anesthesia plan. Reviewed the physical assessment, medical history, allergy history and patient home medications list prior to surgery/procedure/anesthetic and documented any changes. Performed airway and anesthesia risk assessments. Anesthesia Type Anesthesia Type: General History Source History Obtained from:: Patient and Chart Anesthesia Focused Assessment* Temperature: 98.2 F Pulse Rate: 55 Blood Pressure: 164/78 Respiratory Rate: 16 Pulse Ox: 100 Oxygen Delivery Method: Room Air Airway Assessment Mouth opens: >3 cm Mallampati Score: III Teeth Condition: Dentures (Patient has full upper and lower dentures. They are out.) Neck Range of motion (ROM): Limited ROM (Slight decrease secondary to disc compression.) Labs Anesthesia Preop lab: CBC WBC 8.1 K/mm3 (4.4-11.0) 03/29/25 09:55 03/29/25 RBC 5.58 M/mm3 (4.6-6.2) 03/29/25 09:55 03/29/25 Hgb 17.7 g/dL (13.0-16.5) H 03/29/25 09:55 5 Hct 51.0 % (40-54) 03/29/25 09:55 03/29/25 Plt Count 158 K/mm3 (150-450) 03/29/25 09:55 03/29/25 CHEMISTRY Potassium 3.9 mmol/L (3.3-5.1) 03/29/25 09:55 03/29/25 Sodium 138 mmol/L (133-145) 03/29/25 09:55 03/29/25 Magnesium 2.3 mg/dL (1.5-2.2) H 03/29/25 09:55 03/29/25 BUN 8 mg/dL (4-19) 03/29/25 09:55 03/29/25 Creatinine 0.93 mg/dL (0.70-1.20) 03/29/25 09:55 03/29/25 Glucose 99 mg/dL (70-99) 03/29/25 09:55 03/29/25 POC Glucose 103 mg/dL (74-106) 04/04/25 10:59 04/04/25 COAG PT 14.0 SECONDS (11.7-14.9) 03/29/25 09:55 Pre-Assessment Diagnosis/Proposed Procedure Planned Operative Procedure(s): Cervical Disc Arthroplasty C5-6, ERAS Anesthesia History 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 When Was Last Pacemaker Check QUESTION #4 FULL TEXT: You/Your Family Experience fever (hyperthermia) with Anesthesia Last Oral Intake Last Oral intake: Last Oral Intake NPO since 10:00 04/04/25 11:08 Meds taken in AM with sips of No 04/04/25 11:08 water? Meds patient instructed to take am of surgery Any additional information?: Yes NPO since: 08:15 (Patient took his preop Ensureat 8:15 AM. 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 - publishing editor: PONV - publishing editor Female No 03/21/25 09:53 HX of Motion Sickness No 03/21/25 09:53 HX of N/V After Surgery No 03/21/25 09:53 Non-Smoker No 03/21/25 09:53 Duration of Surgery greater Yes 03/21/25 09:53 than 60 minutes Number of Risk Factors 1 03/21/25 09:53 PONV Score Low Risk 03/21/25 09:53 Height & Weight Height & Weight: Anesthesia: Height & Weight Height 5 ft 5 in 04/04/25 11:08 Weight: 72.575 kg 04/04/25 11:08 Body Mass Index (BMI) 26.6 04/04/25 11:08 Respiratory Assessment Respiratory Assessment - publishing editor: Respiratory Tract Infection Hx - publishing editor Hx Respiratory Tract Infection No 03/21/25 09:53 STOP Sleep Apnea STOP Sleep Apnea - publishing editor: STOP Sleep Apnea - publishing editor Hx Hypertension No 03/21/25 09:53 Hx Sleep Apnea No 03/21/25 09:53 CPAP BIPAP Do you snore loudly (louder No 03/21/25 09:53 than talking or can be heard Do you often feel tired/ No 03/21/25 09:53 fatigued/ sleepy during daytime? Has anyone observed you stop No 03/21/25 09:53 breathing during sleep? STOP Results Negative 03/21/25 09:53 QUESTION #5 FULL TEXT : Do you snore loudly (louder than talking or can be heard through closed doors)? 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 Specify any problems Hx of Preganancy in last 3 N/A 03/21/25 09:53 Months Nurse Filling Out Transfusion SandovalZODEEPTHI 03/21/25 09:53 & Questions: Date: 03/21/25 03/21/25 09:53 Time: 09:56 03/21/25 09:53 Patient unable to answer at this time (ie. confused, unrespo /Reproduction History /Reproductive History - publishing editor: /Reproductive Hx- publishing editor Hx Now No 03/21/25 09:53 Gestational Age (in weeks): EDC: Hx Hx Para Hx Section SAB No 03/21/25 09:53 Active Medications Active Medications: Current Medications Generic Name Dose Route Start Last Admin Trade Name Freq PRN Reason Stop Dose Admin Acetaminophen 1,000 mg 04/04/25 12:15 04/04/25 11:14 Acetaminophen 500 Mg Tablet PO 04/04/25 12:16 1,000 mg PREOP ONE Administration Dexamethasone Sodium Phosphate 8 mg 04/04/25 12:15 Dexamethasone 10 Mg/Ml Vial IV 04/04/25 12:16 INTRAOP ONE Dexamethasone Sodium Phosphate 4 mg 04/04/25 12:15 Dexamethasone 4 Mg/Ml Vial IV 04/04/25 12:16 POSTOP ONE Cefazolin Sodium 2 gm/ Sodium 110 mls @ 150 mls/hr 04/04/25 12:15 Chloride IV 04/04/25 12:58 INTRAOP ONE Tranexamic Acid 1,000 mg/ 110 mls @ 440 mls/hr 04/04/25 12:15 Sodium Chloride IV 04/04/25 12:29 INTRAOP ONE Tranexamic Acid 1,000 mg/ 110 mls @ 440 mls/hr 04/04/25 12:15 Sodium Chloride IV 04/04/25 12:29 INTRAOP ONE Magnesium Sulfate 1 gm/ 102 mls @ 408 mls/hr 04/04/25 12:15 04/04/25 11:28 Dextrose IV 04/04/25 12:29 408 mls/hr INTRAOP ONE Administration Lactated Ringer's 1,000 mls @ 15 mls/hr 04/04/25 10:45 04/04/25 10:45 IV 15 mls/hr .Q48H TERRY Administration Insulin Human Lispro 1 - 6 unit 04/04/25 12:15 Insulin Lispro 100 Unit/Ml Insuln.Pen SC 04/04/25 18:00 Q4H PRN PRN BG>/= 180, SEE PROTOCOL Protocol PFSH Medical History Wears glasses Wears dentures Marijuana use Abrasion High cholesterol Loss of consciousness Migraine headache Syncope Smoker Shortness of breath on exertion Home Medications ?Medication ?Instructions ?Recorded ?Last Taken ?Type gabapentin 300 mg capsule 300 mg PO TID 03/02/2504/04 07:00 History rosuvastatin 10 mg tablet 10 mg PO QHS 03/02/25 Unknow n History Held on 03/21/25. Instructions: pt refused to take this at this time Allergy/AdvReac Type Severity Reaction Status Date / Time codeine AdvReac Intermediate Abd Verified 04/04/25 11:01 cramps/diarrhea morphine AdvReac Upset Verified 04/04/25 11:01 Stomach Family History Mother CAD (coronary artery disease) Brother CAD (coronary artery disease) Surgical History Hx of colonoscopy History of anal fissures Social History household members: spouse Smoking Status: Current every day smoker tobacco type: cigarettes alcohol intake: current alcohol intake frequency: holidays/special occasions only Review of Systems (Anesthesia) ROS Narrative System reviewed and no additional complaints, except as documented. 04/04/25 1227 <Electronically signed by Ez thomas MD> Date _ Ez Turner MD Cosigner Signature: Date CC: ~ Signed [facility] Work Phone: 1(287) 718-759406-18-2025 History and physical note Author Dwayne Feliciano [facility] Note Date/Time April 04, 2025 4:05 pm [facility] Medical Records Department [address] [place] [address] History & Physical Exam 04/04/25 1136 MR#: [id number] Acct: [id number] Name: IVETTE GONZÁLES Rep #:[id number] : 1960 64 From: Dwayne Feliciano MD PCP: Dr. Jeannette Galicia, DO Status:REG S DC Location: [place] [address] History and Physical MR#: [id number] Acct: [id number] Name: IVETTE GONZÁLES Rep #: [id number] : 1960 Provider: Dr. Dwayne Feliciano MD Age/Sex: 64/M Location: [facility] [place].[facility] Status: Signed Intake Vital Signs 03/02/2509:27 Height 5 ft 5 in Weight: 164 lb 4 oz BMI 27.3 Intake Visit Reasons: cervical spine Chief Complaint: pre op Accompanied by: Allergies codeine Adverse Reaction (Intermediate, Verified 03/29/25 08:04) Abd cramps/diarrheamorphine Adverse Reaction (Verified 03/29/25 08:04) Upset Stomach Medications ?Medication ?Instructions ?Recorded ?Confirmed ?Type gabapentin 300 mg capsule 300 mg PO TID 03/02/25 03/29/25 History rosuvastatin 10 mg tablet 10 mg PO QHS 03/02/25 03/29/25 History Held on 03/21/25. Instructions: pt refused to take this at this time Have you fallen in the past year?: No [facility] Medical History (Updated 03/29/25 @ 11:38 by Sunita Kelley) Wears glasses Wears dentures Marijuana use Abrasion High cholesterol Loss of consciousness Migraine headache Syncope Smoker Shortness of breath on exertion Surgical History Hx of colonoscopy History of anal fissures Family History Mother CAD (coronary artery disease)Brother CAD (coronary artery disease) Social History household members: spouse Smoking Status: Current every day smoker tobacco type: cigarettes alcohol intake: current alcohol intake frequency: holidays/special occasions only HPI cervical spine Details: This documentation accurately reflects the service provided and the decisions made by me, Dr. Dwayne Feliciano MD 03/29/25 0757. Part of today?s visit was documented by Teresa FINCH, acting as scribe. IVETTE GONZÁLES is a 64 year old M here today for pre-op cervical spine, dos: 04/04/25. He has had worsening radicular pain and patch of numbness in the left forearm, along with right-sided symptoms that persist. He also has worsening balance and continues to have lower back issues as well. 03/02/25: IVETTE GONZÁLES is a 64 year old M here today for cervical and lumbar spine pain. Patient states the neck and back have been bothering him for quite awhile. He states he saw Dr. Isra Carrero and he didn't know if it was all coming from the back and he was told he had bursitis in the hip. He decided to try physical therapy and over time it progressively gotten worse to the point where he couldn't walk very far without having to stop. He states he had an MRI of the lumbar spine and found some disc issues. He then had an MRI of the neck and he found some disc issues in the neck as well. Patient is currently in physical therapy right now. He does have some musculature soreness and will get more pain now while he is in PT. He states he does not have any pain in the neckunless he sleeps weird. He states his thumb, index and middle finger in the right hand gets numb and he gets radiating pain up the forearm into the elbow. Occasionally he will get the radiating pain all the way up the arm into the shoulder. He did have an EMG in January and was told the issues were coming from his neck, he does not have carpal tunnel. He states he is unable to sleep comfortably. The lumbar spine pain is over the left lumbar spine down the buttocks and into the posterior hamstring. He denies any pain into the right leg. He states when he walks the left leg feels like it locks up. He states he will get numbness in the anterior aspect of the left thigh. He denies any injections in the cervical or lumbar spine. He was prescribed gabapentin by Dr. Dhaliwal. He is seeing Dr. Whitaker next week for pain management. He does not havetrouble writing, holding or dropping objects. He denies any issues with his balance when he walks and no recent falls. He does not have a history of heart problems, lung problems, diabetes or stroke. He does not take any blood thinners. 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 He is a smoker and smokes one pack per day. Heis scheduled to be evaluated by Dr. Whitaker in pain management next week. Ortho Exam General General: Yes no acute distress Neurologic: Yes alert Psychologic: Yes reasonable and appropriate Spine SPINE TESTING CERVICAL THORACIC LUMBAR Musculoskeletal Strength 0=absent - 5=normal Details: Exertion neck shows midline right paraspinal tenderness, lower back shows midline left paraspinal tenderness neurologic motion of upper and lower extremities is 5 x 5 power normal shows normal sensations in all dermatomes withHoffmann's negative. Romberg's is positive. Tandem gait shows mild imbalance. Reflexes are brisk. There is no clonus. Coding Level of Care Code Off vis,est,level 4 Diagnoses Cervical myelopathy with cervical radiculopathy G95.9; M54.12 Spinal stenosis of lumbar region with neurogenic claudication M48.062 Spondylolisthesis, lumbar region M43.16 Time Spent (min) 35 Assessment and Plan Assessment and Plan (1) Cervical myelopathy with cervical radiculopathy: Status: Acute (2) Spinal stenosis of lumbar region with neurogenic claudication: Status: Acute (3) Spondylolisthesis, lumbar region: Status: Acute Plan Again reviewed pt's cervical and lumbar x-ray in detail with patient and his . X-rays and MRI of the cervical spine show multilevel disc degeneration with C5-6 central disc herniation with cord compression with bilateral foraminalstenosis. C4-5 shows mild disc bulge without any cord compression. No cord signal changes seen. Lower back shows L4-5 subtle spondylolisthesis on flexion view which reduces in extension. MRI shows multilevel disc degeneration with severe central stenosis L4-5 and left-sided lateral recess stenosis from L4-S1. Again explained imaging findings in detail. Explained that cervical spinal cordcompression with take priority of the lower back pathology. The cervical MRI shows compression, I discussed this in detail with patient and his . This would require decompression surgically, as cervical myelopathy typically has a progressive natural history. Disc replacement versus fusion were discussed in detail. Patient has a smoking history and is a single level pathology without significant facet arthrosis. I recommend C5-6 disc replacement. We discussed risks, benefits, and alternatives to this. At this time I recommend that we proceed with surgery for the cervical spine. We discussed the restrictions that he would have after surgery. We also discussed that he will likely have trouble swallowing for the first few weeks after surgery. For his lower back, recommendcontinued nonoperative measures versus surgery. I recommend that he receive injections with pain management for his lumbar spine. He is a smoker and we discussed smoking cessation and how smoking can affect healing after surgery. Discussed in detail the risk benefits and alternatives of the cervical spine surgery. The risks include but are not limited to infection, bleeding, injury to nerves and vessels, hematoma formation, need for further surgery, dysphagia, dysphonia, visceral injury, Ayesha syndrome, recurrent laryngeal nerve injury, persistent pain, persistent numbness and weakness, spinal cord injury, nerve root injury, persistent malposition, adjacent segment degeneration, DVT, pulm embolism, pneumonia, atelectasis, cardiopulmonary event. Patient understands and agrees to proceed with surgery. Consent was signed. 04/04/25 1137 <Electronically signed by Dwayne Feliciano MD> Cosigner Signature (if applicable): CC: Dr. Jeannette Galicia, DO; Dr. Dwayne Feliciano MD~ Signed [facility] Work Phone: [phone] 750-306306-18-2025 Consult note [facility] Medical Records Department [address] [place] [address] Pre-Anesthesia Evaluation 04/04/25 1215 MR#: [id number] Acct: [id number] Name: IVETTE GONZÁLES Rep #:[id number] : 1960 64 From: Ez Turner MD PCP: Dr. Jeannette Galicia, DO Status:REG S DC Y Race: C Location: [place] [address] ASA Classification* ASA Classification ASA Classification: 3 Assessment & Plan Anesthesia* Anesthesia Assessment Anesthesia Assessment: Discussed sedation and/or anesthesia options, risks, benefits, and alternatives with patient/parents/legal guardian/POA. Questions invited. The patient/parents/legal guardian/POA seems to understand and agrees to proceedwith anesthesia plan. Reviewed the physical assessment, medical history, allergy history and patient home medications list prior to surgery/procedure/anesthetic and documented any changes. Performed airway and anesthesia risk assessments. Anesthesia Type Anesthesia Type: General History Source History Obtained from:: Patient and Chart Anesthesia Focused Assessment* Temperature: 98.2 F Pulse Rate: 55 Blood Pressure: 164/78 Respiratory Rate: 16 Pulse Ox: 100 Oxygen Delivery Method: Room Air Airway Assessment Mouth opens: >3 cm Mallampati Score: III Teeth Condition: Dentures (Patient has full upper and lower dentures. They are out.) Neck Range of motion (ROM): Limited ROM (Slight decrease secondary to disc compression.) Labs Anesthesia Preop lab: CBC WBC 8.1 K/mm3 (4.4-11.0) 03/29/25 09:55 03/29/25 RBC 5.58 M/mm3 (4.6-6.2) 03/29/25 09:55 03/29/25 Hgb 17.7 g/dL (13.0-16.5) H 03/29/25 09:55 5 Hct 51.0 % (40-54) 03/29/25 09:55 03/29/25 Plt Count 158 K/mm3 (150-450) 03/29/25 09:55 03/29/25 CHEMISTRY Potassium 3.9 mmol/L (3.3-5.1) 03/29/25 09:55 03/29/25 Sodium 138 mmol/L (133-145) 03/29/25 09:55 03/29/25 Magnesium 2.3 mg/dL (1.5-2.2) H 03/29/25 09:55 03/29/25 BUN 8 mg/dL (4-19) 03/29/25 09:55 03/29/25 Creatinine 0.93 mg/dL (0.70-1.20) 03/29/25 09:55 03/29/25 Glucose 99 mg/dL (70-99) 03/29/25 09:55 03/29/25 POC Glucose 103 mg/dL (74-106) 04/04/25 10:59 04/04/25 COAG PT 14.0 SECONDS (11.7-14.9) 03/29/25 09:55 Pre-Assessment Diagnosis/Proposed Procedure Planned Operative Procedure(s): Cervical Disc Arthroplasty C5-6, ERAS Anesthesia History 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 When Was Last Pacemaker Check QUESTION #4 FULL TEXT: You/Your Family Experience fever (hyperthermia) with Anesthesia Last Oral Intake Last Oral intake: Last Oral Intake NPO since 10:00 04/04/25 11:08 Meds taken in AM with sips of No 04/04/25 11:08 water? Meds patient instructed to take am of surgery Any additional information?: Yes NPO since: 08:15 (Patient took his preop Ensureat 8:15 AM. Had a swallow of tea at 10:00am.) Meds taken in AM with sips of water?: Yes Meds patient instructed to takeam of surgery: Gabapentin PONV PONV - publishing editor: PONV - publishing editor Female No 03/21/25 09:53 HX of Motion Sickness No 03/21/25 09:53 HX of N/V After Surgery No 03/21/25 09:53 Non-Smoker No 03/21/25 09:53 Duration of Surgery greater Yes 03/21/25 09:53 than 60 minutes Number of Risk Factors 1 03/21/25 09:53 PONV Score Low Risk 03/21/25 09:53 Height & Weight Height & Weight: Anesthesia: Height & Weight Height 5 ft 5 in 04/04/25 11:08 Weight: 72.575 kg 04/04/25 11:08 Body Mass Index (BMI) 26.6 04/04/25 11:08 Respiratory Assessment Respiratory Assessment - publishing editor: Respiratory Tract Infection Hx - publishing editor Hx Respiratory Tract Infection No 03/21/25 09:53 STOP Sleep Apnea STOP Sleep Apnea - publishing editor: STOP Sleep Apnea - publishing editor Hx Hypertension No 03/21/25 09:53 Hx Sleep Apnea No 03/21/25 09:53 CPAP BIPAP Do you snore loudly (louder No 03/21/25 09:53 than talking or can be heard Do you often feel tired/ No 03/21/25 09:53 fatigued/ sleepy during daytime? Has anyone observed you stop No 03/21/25 09:53 breathing during sleep? STOP Results Negative 03/21/25 09:53 QUESTION #5 FULL TEXT : Do you snore loudly (louder than talking or can be heard through closeddoors)? 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 Specify any problems Hx of Preganancy in last 3 N/A 03/21/25 09:53 Months Nurse Filling Out Transfusion JZOLLINGE 03/21/25 09:53 & Questions: Date: 03/21/25 03/21/25 09:53 Time: 09:56 03/21/25 09:53 Patient unable to answer at this time (ie. confused, unrespo /Reproduction History /Reproductive History - publishing editor: /Reproductive Hx- publishing editor Hx Now No 03/21/25 09:53 Gestational Age (in weeks): EDC: Hx Hx Para Hx Section SAB No 03/21/25 09:53 Active Medications Active Medications: Current Medications Generic Name Dose Route Start Last Admin Trade Name Freq PRN Reason Stop Dose Admin Acetaminophen 1,000 mg 04/04/25 12:15 04/04/25 11:14 Acetaminophen 500 Mg Tablet PO 04/04/25 12:16 1,000 mg PREOP ONE Administration Dexamethasone Sodium Phosphate 8 mg 04/04/25 12:15 Dexamethasone 10 Mg/Ml Vial IV 04/04/25 12:16 INTRAOP ONE Dexamethasone Sodium Phosphate 4 mg 04/04/25 12:15 Dexamethasone 4 Mg/Ml Vial IV 04/04/25 12:16 POSTOP ONE Cefazolin Sodium 2 gm/ Sodium 110 mls @ 150 mls/hr 04/04/25 12:15 Chloride IV 04/04/25 12:58 INTRAOP ONE Tranexamic Acid 1,000 mg/ 110 mls @ 440 mls/hr 04/04/25 12:15 Sodium Chloride IV 04/04/25 12:29 INTRAOP ONE Tranexamic Acid 1,000 mg/ 110 mls @ 440 mls/hr 04/04/25 12:15 Sodium Chloride IV 04/04/25 12:29 INTRAOP ONE Magnesium Sulfate 1 gm/ 102 mls @ 408 mls/hr 04/04/25 12:15 04/04/25 11:28 Dextrose IV 04/04/25 12:29 408 mls/hr INTRAOP ONE Administration Lactated Ringer's 1,000 mls @ 15 mls/hr 04/04/25 10:45 04/04/25 10:45 IV 15 mls/hr .Q48H TERRY Administration Insulin Human Lispro 1 - 6 unit 04/04/25 12:15 Insulin Lispro 100 Unit/Ml Insuln.Pen SC 04/04/25 18:00 Q4H PRN PRN BG>/= 180, SEE PROTOCOL Protocol PFSH Medical History Wears glasses Wears dentures Marijuana use Abrasion High cholesterol Loss of consciousness Migraine headache Syncope Smoker Shortness of breath on exertion Home Medications ?Medication ?Instructions ?Recorded ?Last Taken ?Type gabapentin 300 mg capsule 300 mg PO TID 03/02/2504/04 07:00 History rosuvastatin 10 mg tablet 10 mg PO QHS 03/02/25 Unknow n History Held on 03/21/25. Instructions: pt refused to take this at this time Allergy/AdvReac Type Severity Reaction Status Date / Time codeine AdvReac Intermediate Abd Verified 04/04/25 11:01 cramps/diarrhea morphine AdvReac Upset Verified 04/04/25 11:01 Stomach Family History Mother CAD (coronary artery disease) Brother CAD (coronary artery disease) Surgical History Hx of colonoscopy History of anal fissures Social History household members: spouse Smoking Status: Current every day smoker tobacco type: cigarettes alcohol intake: current alcohol intake frequency: holidays/special occasions only Review of Systems (Anesthesia) ROS Narrative System reviewed and no additional complaints, except as documented. 04/04/25 1227 martha BROCK> Date _ Ez Turner MD Cosigner Signature: Date CC: ~ Signed [facility]05-16-2025 Evaluation note* Diagnosis Onset Date Resolution Status Admit Date Cervical myelopathy with cer vical radiculopathy acute March 02, 2025 9 :22am Spinal stenosis of lumbar re gion with neurogenic claudication acute March 02, 2025 9:22am Spondylolisthesis, lumbar region acu te March 02, 2025 9:22am [facility] Work Phone: 1(473) 239-327105-16-2025 Evaluation note* Diagnosis Onset Date Resolution Status Admit Date Cervical myelopathy with cer vical radiculopathy acute March 02, 2025 9 :22am Spinal stenosis of lumbar re gion with neurogenic claudication acute March 02, 2025 9:22am Spondylolisthesis, lumbar region acu te March 02, 2025 9:22am Cervical myelopathy with cer vical radiculopathy acute March 29, 2025 7:54am Spinal stenosis of lumbar re gion with neurogenic claudication acute Mar 7:54am Spondylolisthesis, lumbar region acu te March 29, 2025 7:54am [facility] Work Phone: 1(473) 190-364104-22-2025 Procedure note [facility] Pulmonary Services/Neurology [address] [place] [address] MR#: [id number] Acct: [id number] Name: IVETTE GONZÁLES Rep #:[id number] : 1960 64 From: Valentino Arrieta MD Referring Dr: Isra Carrero MD Stat us: REG CLI Location: PSN Date: 02/06/25 Sex: M C NCS and/or EMG Patient Report Ordering Doctor: Isra Carrero DATE OF SERVICE: 02/06/25 Clinical Summary: 64 year old male patient presenting with symptoms of pain, numbness, and tingling in the right upper extremity. Nerve Conduction Studies Summary: Nerve conduction studies performed in the right upper extremity were within normal ranges. Needle Examination Summary: Needle examination of select muscles of the right upper extremity demonstrated increased insertional activity and spontaneous activity (positive sharp waves) in the left flexor carpi radialis muscle.There was a higher proportion of motorunit action potentials with reduced recruitment, increased amplitude, increased duration, and polyphasia in the right triceps muscle. Impression: This is an abnormal study. There is electrodiagnostic evidence of a subacute to chronic, right C7 radiculopathy with active denervation. There is no electrodiagnostic evidence of a right median mononeuropathy at the wrist (carpal tunnelsyndrome) or ulnar mononeuropathy. Multi Select Codes Neurology Neurology Interp Codes: 70754-50 Musc test done w/n test comp (interp) (1) and 45399-01 Nrv cndj test 7-8 studies (interp) 02/06/25 1506 MD> Date _ Valentino Arrieta MD CC: Dr. Valentino Arrieta MD; Dr. Jeannette Galicia DO; Dr. 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 Multiplanar reformatted images are provided for review. Automated exposure control, iterative reconstruction, and/or weight based adjustment of the mA/kV was utilized to reduce the radiation dose to as low as reasonably achievable. COMPARISON: 11/23/2017. HISTORY: ORDERING SYSTEM PROVIDED HISTORY: Reason for Exam: microhematuria FINDINGS: Visualized lung bases are clear. Small hiatal hernia. Small 3rd duodenal segment diverticula. Liver, spleen, pancreas and adrenal glands are unremarkable. Kidneys are symmetric in size without hydronephrosis or urinary calculi. Urinary bladder is unremarkable. Bladder is normal in size with dystrophic calcifications. Small bowel and colon are normal in size and caliber. There is no definite bowel wall thickening, intraperitoneal free air or focal fluid collection. Appendix is not visualized. There is no lymphadenopathy. Nonaneurysmal abdominal aorta. Severe calcific atherosclerosis at the proximal common iliac arteries. Small fat containing bilateral inguinal hernias. No acute fracture or destructive osseous lesion. There are degenerative changes in the spine. IMPRESSION: No urinary calculi or other identifiable cause of microhematuria. I have personally reviewed the images of this examination and agree with the resident's finding and interpretation. Interpreted by: Michael Costa MD Preliminary Report By: Jas Dang Electronically signed By Michael Costa MD Dictated Date: 12/29/2022 9:11:22 AM Prelim Date: 12/29/2022 10:44:58 AM Sign Date: 12/29/2022 10:44:58 AM Ordering Provider: [facility]03-14-2023 Note ORIGINAL EXAMINATION: CT OF THE ABDOMEN AND PELVIS WITHOUT CONTRAST 12/29/2022 8:28 am TECHNIQUE: CT of the abdomen and pelvis was performed without the administration of intravenous contrast. Multiplanar reformatted images are provided for review. Automated exposure control, iterative reconstruction, and/or weight based adjustment of the mA/kV was utilized to reduce the radiation dose to as low as reasonably achievable. COMPARISON: 11/23/2017. HISTORY: ORDERING SYSTEM PROVIDED HISTORY: Reason for Exam: microhematuria FINDINGS: Visualized lung bases are clear. Small hiatal hernia. Small 3rd duodenal segment diverticula. Liver, spleen, pancreas and adrenal glands are unremarkable. Kidneys are symmetric in size without hydronephrosis or urinary calculi. Urinary bladder is unremarkable. Bladder is normal in size with dystrophic calcifications. Small bowel and colon are normal in size and caliber. There is no definite bowel wall thickening, intraperitoneal free air or focal fluid collection. Appendix is not visualized. There is no lymphadenopathy. Nonaneurysmal abdominal aorta. Severe calcific atherosclerosis at the proximal common iliac arteries. Small fat containing bilateral inguinal hernias. No acute fracture or destructive osseous lesion. There are degenerative changes in the spine. IMPRESSION: No urinary calculi or other identifiable cause of microhematuria. I have personally reviewed the images of this examination and agree with the resident's finding and interpretation. Interpreted by: Michale Costa MD Preliminary Report By: Jas Dang Electronically signed By Michael Costa MD Dictated Date: 12/29/2022 9:11:22 AM Prelim Date: 12/29/2022 10:44:58 AM Sign Date: 12/29/2022 10:44:58 AM Ordering Provider: [facility]10-12-2022 Note ORIGINAL NM MYOCARDIAL SPECT STRESS/REST CLINICAL STATEMENT: dizziness TECHNIQUE: Lexiscan dose:0.4 mg Radiopharmaceutical (stress): Tc-99m Sestamibi Dose:32.9 mCi Radiopharmaceutical (rest): Tc-99m Sestamibi Dose:10.7 mCi SPECT acquisition and processing Reconstruction and reorientation of SPECT images into short axis, vertical and horizontal long axisplanes Quantitative LVEF assessment COMPARISON:None REPORT:Overall, image quality is good. Rotating planar images show no significant patient motion. SPECT perfusion images during rest and stress show homogenous radiotracer uptake. No defects to suggest ischemia or infarction. GATED SPECT images show normal LV size and function. LVEDV is 90mL. Ejection fraction is calculatedat 61% IMPRESSION: 1. No evidence of ischemia. 2. No evidence for infarction. 3. Normal LV size and function. 4. No previous for comparison. Interpreted By: Matthew Lara Preliminary Report By: Matthew Lara Electronically Signed By: Matthew Lara Dictated Date: 07/29/2022 10:10:28 PM Prelim Date: 07/29/2022 10:10:28 PM Sign Date: 07/29/2022 10:16:36 PM Ordering Provider:Jo Bowers [facility]10-12-2022 Note ORIGINAL NM MYOCARDIAL SPECT STRESS/REST CLINICAL STATEMENT: dizziness TECHNIQUE: Lexiscan dose:0.4 mg Radiopharmaceutical (stress): Tc-99m Sestamibi Dose:32.9 mCi Radiopharmaceutical (rest): Tc-99m Sestamibi Dose:10.7 mCi SPECT acquisition and processing Reconstruction and reorientation of SPECT images into short axis, vertical and horizontal long axisplanes Quantitative LVEF assessment COMPARISON:None REPORT:Overall, image quality is good. Rotating planar images show no significant patient motion. SPECT perfusion images during rest and stress show homogenous radiotracer uptake. No defects to suggest ischemia or infarction. GATED SPECT images show normal LV size and function. LVEDV is 90mL. Ejection fraction is calculatedat 61% IMPRESSION: 1. No evidence of ischemia. 2. No evidence for infarction. 3. Normal LV size and function. 4. No previous for comparison. Interpreted By: Matthew Lara Preliminary Report By: Matthew Lara Electronically Signed By: Matthew Lara Dictated Date: 07/29/2022 10:10:28 PM Prelim Date: 07/29/2022 10:10:28 PM Sign Date: 07/29/2022 10:16:36 PM Ordering Provider:Jo [facility]08-02-2022 Evaluation + Plan note Future Appointments Appointment Date:06/09/2022 01:00:00 PM Scheduled Provider: Location:RAD Appointment Type:MRI Brain w/o Contrast Appointment Date:06/09/2022 02:00:00 PM Scheduled Provider: Location:RAD Appointment Type:VL AOH - Carotid US/Doppler Complete Appointment Date:06/15/2022 11:20:00 AM Scheduled Provider:JEANNETTE GALICIA DO Location:[facility] Appointment Type:PC OV Future Scheduled Tests Radiology* MRI Brain w/o Contrast 06/09/22 [facility] Consult note Author Eva elham [facility] Note Date/Time April 04, 2025 4:34 pm [facility] Medical Records Department [address] [place] [id number] Anesthesia Postop Eval II 04/04/25 1634 MR#: [id number] Acct: [id number] Name: IVETTE GONZÁLES Rep #:[id number] : 1960 64 From: Eva Patel CRNA PCP: Dr. Jeannette Galicia, Status:REG S DC Y Race: C Location: [place] [address] Anesthesia Postop Eval I Sum Postop Eval Completion status Anesthesia document: Postop Eval 1 completed: Yes Anesthesia Postop Eval I Summary Anesthesia Postop Eval I Summary: Anesthesia Postop Eval I: Assessment Summary Airway patent Yes 04/04/25 14:42 VETERANS' COUNSELOR.DBAK Spontaneous unlabored Yes 04/04/25 14:42 VETERANS' COUNSELOR.DBAK respirations Mental status Awake,Calm 04/04/25 14:42 VETERANS' COUNSELOR.DBAK nausea No 04/04/25 14:42 VETERANS' COUNSELOR.DBAK Vomiting No 04/04/25 14:42 VETERANS' COUNSELOR.DBAK Anesthesia Postop Eval I: Fluid Summary Crystalloid volume administer 1,000 04/04/25 14:42 VETERANS' COUNSELOR.DBAK (ml) Colloids volume administered ( ml) Blood Product volume administered (ml) Total IV fluid infused 1,000 04/04/25 14:42 VETERANS' COUNSELOR.DBAK Anesthesia Postop Eval I: Summary Notes Anesthesia Complication No 04/04/25 14:42 VETERANS' COUNSELOR.DBAK Anesthesia Complication Comment: Post-operative progress note See PACU notes for 04/04/25 14:42 VETERANS' COUNSELOR.DBAK details VSS Anesthesia: Postop Eval II Evaluation Mental status: Awake Pain Level: 3 nausea: No Vomiting: No 04/04/25 1634 <Electronically signed by Eva salgado VETERANS' COUNSELOR> Date _ Eva Patel VETERANS' COUNSELOR Cosigner Signature: Date CC: ~ Signed [facility] Work Phone: Evaluation + Plan note Future Appointments Appointment Date:05/27/2022 08:30:00 AM Scheduled Provider:JEANNETTE GALICIA DO Location:[facility] Appointment Type:PC Wellness Medicare Appointment Date:06/09/2022 01:00:00 PM Scheduled Provider: Location:[facility] Appointment Type:MRI Brain w/o Contrast Appointment Date:06/09/2022 02:00:00 PM Scheduled Provider: Location:[facility] Appointment Type: AO - Carotid US/Doppler Complete Future Scheduled Tests Radiology* MRI Brain w/o Contrast 06/09/22 [facility] Evaluation + Plan note Future Appointments Appointment Date:06/15/2022 11:20:00 AM Scheduled Provider:JEANNETTE GALICIA DO Location:[facility] Appointment Type:PC OV [facility] Evaluation + Plan note Future Appointments Appointment Date:07/29/2022 08:00:00 AM Scheduled Provider: Location:[facility] Appointment Type:NM Myocardial Spect Rest/Stress Appointment Date:07/29/2022 10:00:00 AM Scheduled Provider: Location:[facility] Appointment Type:CV Procedure - AOH Echo Appointment Date:07/29/2022 11:00:00 AM Scheduled Provider: Location:[facility] Appointment Type:CV Procedure - AOH Echo Future Scheduled Tests Radiology* NM Myocardial Spect Rest/Stress 07/29/22 [facility] Evaluation + Plan note Future Appointments Appointment Date:12/31/2022 08:00:00 AM Scheduled Provider: Location:[facility] Appointment Type:PT Treatment - [place] Future Scheduled Tests Laboratory* Ferritin 11/12/22 * Uric Acid 11/12/22 * Vitamin B12 Level 11/12/22 * Complete Blood Count 11/12/22 * Erythropoietin Level 11/12/22 * N-Terminal proBNP 03/26/23 [facility] evaluation + Plan note Future Appointments Appointment Date:01/21/2024 09:00:00 AM Scheduled Provider:EFFIE SOMMER Location:UROLOGY Appointment Type:URO OV Future Scheduled Tests Laboratory* Prostate Specific Antigen 07/19/23 * N-Terminal proBNP 03/26/23 [facility] Evaluation + Plan note Future Appointments Appointment Date:01/21/2024 09:00:00 AM Scheduled Provider:EFFIE SOMMER Location:UROLOGY Appointment Type:URO OV Future Scheduled Tests Laboratory* N-Terminal proBNP 03/26/23 [facility] Evaluation + Plan note Future Appointments Appointment Date:01/21/2024 09:00:00 AM Scheduled Provider:EFFIE SOMMER Location:UROLOGY Appointment Type:URO OV Appointment Date:05/11/2024 08:00:00 AM Scheduled Provider:JEANNETTE GALICIA DO Location:[facility] Appointment Type:PC OV Future Scheduled Tests Laboratory* N-Terminal proBNP 03/26/23 [facility] evaluation + Plan note Future Appointments Appointment Date:04/27/2024 09:20:00 AM Scheduled Provider:DARION LEONE MD Location:UROLOGY Appointment Type:URO Off Proc Cysto w/ Transrectal Ultras Appointment Date:05/11/2024 08:00:00 AM Scheduled Provider:JEANNETTE GALICIA DO Location:[facility] Appointment Type:PC OV Future Scheduled Tests Laboratory* N-Terminal proBNP 03/26/23 Radiology* US Scrotum Contents 03/20/24 [facility] Evaluation + Plan note Future Appointments Appointment Date:08/25/2024 08:30:00 AM Scheduled Provider:EFFIE SOMMER Location:UROLOGY Appointment Type:URO OV [facility] Evaluation + Plan note Future Appointments Appointment Date:08/24/2025 08:30:00 AM Scheduled Provider:EFFIE SOMMER Location:UROLOGY Appointment Type:URO OV Future Scheduled Tests Laboratory* Prostate Specific Antigen 08/25/25 [facility] Evaluation + Plan note Future Appointments Appointment Date:02/16/2025 08:00:00 AM Scheduled Provider:Jay Jackson PT Location:[facility] Appointment Type:PT Outpatient Evaluation Appointment Date:03/07/2025 02:10:00 PM Scheduled Provider: Location:[facility] Appointment Type:PM EMG/NCV 1 Extremity Appointment Date:08/24/2025 08:30:00 AM Scheduled Provider:EFFIE SOMMER Location:UROLOGY Appointment Type:URO OV Appointment Date:02/07/2026 08:00:00 AM Scheduled Provider:JEANNETTE GALICIA DO Location:[facility] Appointment Type:PC Wellness Medicare Future Scheduled Tests Laboratory* Prostate Specific Antigen 08/25/25 * Lipid Profile 02/06/25 * Complete Metabolic Panel 02/06/25 [facility] Evaluation noteNo assessment information available [facility] Work Phone: Hospital course Narrative No data available for this section [facility] Hospital Discharge instructions No data available for this section [facility] Note* MEREDITH, BERT A MD: SIGN, VERIFY Event Display: VL Carotid US/Doppler Complete AOH [facility] Progress note No data available for this section [facility] Reason for referral (narrative)No reason for referral information [facility]WMi[facility] Work Phone: Summary Purpose Family History Relationship Condition Age at Onset Recorded Date/T abraham mother Coronary artery disease Unknown brother Coronary artery disease Unknown Advance Directives Advance Directive Response Recorded Date/ Time Do you have a Healthcare Power of [employer] Application Developer? Yes March 21, 2025 9:53am Name of Medical Power of [employer] Application Developer March 21, 2025 9:53am Chief Complaint and Reason for Visit Chief Complaint SINUSITIS Chief Complaint Admit Date RUE; CARPAL TUNNEL, CERVICAL RADICULOPAT HY February 06, 2025 1:46pm RUE; CARPAL TUNNEL, CERVICAL RADICULOPAT HY February 06, 2025 3:02pm Chief Complaint Admit Date RUE; CARPAL TUNNEL, CERVICAL RADICULOPAT HY February 06, 2025 1:46pm RUE; CARPAL TUNNEL, CERVICAL RADICULOPAT HY February 06, 2025 3:02pm CERVICAL SPINE March 02, 2025 9:22a m Room 5 March 02, 2025 9:45a m Chief Complaint Admit Date RUE; CARPAL TUNNEL, CERVICAL RADICULOPAT HY February 06, 2025 1:46pm RUE; CARPAL TUNNEL, CERVICAL RADICULOPAT HY February 06, 2025 3:02pm CERVICAL SPINE March 02, 2025 9:22a m Room 5 March 02, 2025 9:45a m cervical spine March 29, 2025 7:54 am Reason for Visit Admit Date Cervical myelopathy with cervical radicu lopathy March 02, 2025 9:22am Spinal stenosis of lumbar region with ne urogenic claudication March 02, 2025 9:22am Spondylolisthesis, lumbar region February 9:22am Chief Complaint Admit Date RUE; CARPAL TUNNEL, CERVICAL RADICULOPAT HY February 06, 2025 1:46pm RUE; CARPAL TUNNEL, CERVICAL RADICULOPAT HY February 06, 2025 3:02pm CERVICAL SPINE March 02, 2025 9:22a m Room 5 March 02, 2025 9:45a m cervical spine March 29, 2025 7:54 am PREOP March 29, 2025 9:44 am Cervical Disc Arthroplasty C5-6, ERAS Ju ne 2024 10:13am Cervical Disc Arthroplasty C5-6, ERAS Ju ne 2024 11:36am Reason for Visit Admit Date Cervical myelopathy with cervical radicu lopathy March 02, 2025 9:22am Spinal stenosis of lumbar region with ne urogenic claudication March 02, 2025 9:22am Spondylolisthesis, lumbar region February 9:22am Cervical myelopathy with cervical radicu lopathy March 29, 2025 7:54am Spinal stenosis of lumbar region with ne urogenic claudication March 29, 2025 7:54am Spondylolisthesis, lumbar region March 292024 7:54am Additional Source Comments (unrecognized sect ion and content) No Status Records FoundNo Status Records FoundNo Status Records FoundNo Status Records FoundNo Status Records Found INFORMATION SOURCE (unrecogn ized section and content) DATE CREATED AUTHOR 04/07/2018 [facility] DATE CREATED AUTHOR AUTHOR'S ORGANIZ ATION 06/15/2024 [facility] ([place]) DATE CREATED AUTHOR AUTHOR'S ORGANIZ ATION 02/02/2025 [facility] DATE CREATED AUTHOR AUTHOR'S ORGANIZ ATION 03/17/2025 [facility] DATE CREATED AUTHOR AUTHOR'S ORGANIZ ATION 04/04/2025 [facility] Goals (unrecognized section and content) Goals may be documented in a n alternate section No data available for this section No data available for this section No data available for this section No data available for this section No data available for this section No data available for this section No data available for this section No data available for this section No data available for this section No data available for this section No data available for this section No data available for this section No data available for this sectionGoals may be documented in an alternate section No data available for this sectionGoals may be documented in an alternate sectionGoals may be documented in an alternate sectionGoals may be documented in an alternate section Care Team (unrecognized sect ion and content) Care Team Personnel Name: JEANNETTE GALICIA DO Position: P4 Physician - Primary Care Med Service: Active Provider Member Role: Primary Care Physician Address: Address: [address] [place], [place] [address]- Care Team Related Persons Name: CRISELDA GONZÁLES Address: Home [address] [place], [place] [phone] [place] Care Team Personnel Name: JEANNETTE GALICIA DO Position: P4 Physician - Primary Care Member Role: Primary Care Physician Address: Address: [address] [place] [address]- Care Team Related Persons Name: CRISELDA GONZÁLES Address: Home [address] [place] [phone] [place] Care Team Personnel Name: JEANNETTE GALICIA DO Position: P4 Physician - Primary Care Member Role: Primary Care Physician Address: Address: [address] [place] [address]- Care Team Related Persons Name: CRISELDA GONZÁLES Address: Home [address] [place] [phone] [place] Care Team Personnel Name: JEANNETTE GALICIA DO Position: P4 Physician - Primary Care Med Service: Active Provider Member Role: Primary Care Physician Address: Address: [address] [place] [address]- Care Team Related Persons Name: CRISELDA GONZÁLES Address: Home [address] [place] [phone] [place] Care Team Personnel Name: JEANNETTE GALICIA DO Position: P4 Physician - Primary Care Med Service: Active Provider Member Role: Primary Care Physician Address: Address: [address] [place] [address]- Care Team Related Persons Name: CRISELDA GONZÁLES Address: Home [address] [place] [phone] [place] Patient Care team informatio n (unrecognized section and content) Team Status: Active Member Role Status Dates Dr. Jeannette Galicia DO Primary Care Provider Active Team Status: Inactive Member Role Status Dates Dr. Jeannette Galicia DO Primary Care Provider Active Start: February 06, 2025 End: February 06, 2025 Dr. Isra Carrero MD Attending Provider Active Start: February 06, 2025 End: February 06, 2025 Dr. Isra Carrero MD Referring Provider Active Start: February 06, 2025 End: February 06, 2025 Team Status: Active Member Role Status Dates Dr. Jeannette Galicia DO Primary Care Provider Active Start: February 06, 2025 Dr. Isra Carrero MD Referring Provider Active Start: February 06, 2025 Dr. Isra Carrero MD Other Provider Active Sta rt: February 06, 2025 Dr. Valentino Arrieta MD Attending Provider Active Start: February 06, 2025 Team Status: Active Member Role Status Dates Dr. Jeannette Galicia DO Primary Care Provider Active Start: March 02, 2025 Dr. Jeannette Galicia DO Referring Provider Active Start: March 02, 2025 Dr. Dwayne Feliciano MD Attending Provider Active Start: March 02, 2025 Team Status: Inactive Member Role Status Dates Dr. Jeannette Galicia DO Primary Care Provider Active Start: March 02, 2025 End: March 02, 2025 Dr. Alan Ivey MD Attending Provider Active S tart: March 02, 2025 End: March 02, 2025 Team Status: Inactive Member Role Status Dates Dr. Jeannette Galicia DO Primary Care Provider Active Start: March 02, 2025 End: March 02, 2025 Dr. Jeannette Galicia DO Referring Provider Active Start: March 02, 2025 End: March 02, 2025 Dr. Dwayne Feliciano MD Attending Provider Active Start: March 02, 2025 End: March 02, 2025 Team Status: Inactive Member Role Status Dates Dr. Jeannette Galicia DO Primary Care Provider Active Start: March 29, 2025 End: March 29, 2025 Dr. Jeannette Galicia DO Referring Provider Active Start: March 29, 2025 End: March 29, 2025 Dr. Dwayne Feliciano MD Attending Provider Active Start: March 29, 2025 End: March 29, 2025 Team Status: Active Member Role Status Dates Dr. Jeannette Galicia DO Primary Care Provider Active Start: March 29, 2025 End: March 29, 2025 Dr. Michael Rangel MD Attending Provider Active Start: March 29, 2025 End: March 29, 2025 Dr. Dwayne Feliciano MD Referring Provider Active Start: March 29, 2025 End: March 29, 2025 Team Status: Inactive Member Role Status Dates Dr. Jeannette Galicia DO Primary Care Provider Active Start: April 04, 2025 End: April 04, 2025 Dr. Dwayne Feliciano MD Attending Provider Active Start: April 04, 2025 End: April 04, 2025 Dr. Dwayne Feliciano MD Referring Provider Active Start: April 04, 2025 End: April 04, 2025 Team Status: Active Member Role Status Dates Dr. Jeannette Galicia DO Primary Care Provider Active Start: April 04, 2025 Dr. Dwayne Feliciano MD Attending Provider Active Start: April 04, 2025 Dr. Dwayne Feliciano MD Referring Provider Active Start: April 04, 2025 Dr. Dwayne Feliciano MD Other Provider Active Star t: April 04, 2025 FOR RECORDS PERTAINING TO PATIENTS WHO ARE OR HAVE BEEN ENROLLED IN A CHEMICAL DEPENDENCY/SUBSTANCEABUSE PROGRAM, SOME INFORMATION MAY BE OMITTED. This clinical summary was aggregated from multiple sources. Caution should be exercised in using it in the provision of clinical care. This summary normalizes information from multiple sources, and as a consequence, information in this document may materially change the coding, format and clinical context of patient data. In addition, data may be omitted in some cases. CLINICAL DECISIONS SHOULD BE BASED ON THE PRIMARY CLINICAL RECORDS. [employer] provides no warranty or guarantee of the accuracy or completeness of information in this document.
== END 2025-04-04 16:05 | disposition home or self-care (01) ==
LOC: SDC 10:13 → AC 10:15
PROVIDERS: Student in an Organized Health Care Education/Training Program; PCP Family Medicine; Referring Provider Orthopaedic Surgery Orthopaedic Surgery of the Spine; Visit Provider Orthopaedic Surgery Orthopaedic Surgery of the Spine
PROC: (CPT 22856; principal; 2025-04-04 11:45)
DX: G95.9 Disease of spinal cord, unspecified (principal); M48.062 Spinal stenosis, lumbar region with neurogenic claudication; E78.00 Pure hypercholesterolemia, unspecified; F17.210 Nicotine dependence, cigarettes, uncomplicated; M43.16 Spondylolisthesis, lumbar region; M50.022 Cervical disc disorder at C5-C6 level with myelopathy; M50.122 Cervical disc disorder at C5-C6 level with radiculopathy; Z79.899 Other long term (current) drug therapy
CPT/HCPCS: 22856; 36415; 72040; 76000; 80048; 82962; 83036; 83735; 85025; 85610; 85730; 86703; 86706; 86708; 86803; 86850; 86900; 86901; 87081; 93005; A4648; J2405; J3475

== ENCOUNTER → 2025-07-25 | Outpatient (CLI) | payer MEDICARE, OTHER, SELFPAY ==
--- NOTE | 2025-07-25 13:35 | NEURO ---
NCS and/or EMG Patient Report Ordering Doctor: rebekah rojas DATE OF SERVICE: 07/25/25 Maco presents for electrodiagnostic testing. He reports complaints of numbness and tingling which is intermittent in the right first 3 digits. Electrodiagnostic findings: Right median motor nerve demonstrates normal distal latency, amplitude and conduction velocity. Right ulnar motor response within normal limits. Normal right median right ulnar F–wave. Sensory responses are within normal limits. Needle EMG testing was performed the right upper limb as well as the right cervical paraspinals. Motor unit action potentials were normal amplitude and duration. No active denervation was noted. Electrodiagnostic impression: This is a normal electrodiagnostic study of the right upper limb. There is no electrodiagnostic evidence for peripheral neuropathy, including carpal tunnel syndrome. There is no electrodiagnostic evidence for cervical radiculopathy. Multi Select Codes Neurology Neurology Interp Codes: 21988-09 Musc test done w/n test comp (interp) and 92153-50 Nrv cndj test 7-8 studies (interp)
== END | disposition home or self-care (01) ==
LOC: PSN 12:13
PROVIDERS: PCP Family Medicine; Referring Provider Orthopaedic Surgery Orthopaedic Surgery of the Spine; Visit Provider Orthopaedic Surgery Orthopaedic Surgery of the Spine
DX: M47.12 Other spondylosis with myelopathy, cervical region (principal); G95.9 Disease of spinal cord, unspecified; M47.22 Other spondylosis with radiculopathy, cervical region; Z98.890 Other specified postprocedural states
CPT/HCPCS: 95886; 95910